=== PATIENT | female | born 1965 | race Caucasian/White ===

== ENCOUNTER 2020-08-27 11:58 | Outpatient (REF) | payer OTHER, SELFPAY ==
[2020-08-27 12:05] LABS: Glucose Urine UA NEG (NEG); Leukocyte Esterase Urine 1+ (NEG); Nitrite Urine NEG (NEG); Specific Gravity - Urine 1.015 (1.005-1.025); Urine Blood NEG (NEG); Urine Ketones NEG (NEG); Urine Protein NEG (NEG-TRACE)
[2020-08-27 12:09] LABS: Appearance Urine CLEAR; Color Urine YELLOW
[2020-08-27 12:40] LABS: Bacteria Urine 1+ /LPF; Mucus Urine TRACE /LPF; RBC Urine 0-2 /HPF (0); Squamous Epithelial Cell Urine 3+ /LPF
== END 2020-08-27 11:59 | disposition home or self-care (01) ==
LOC: HO.LNP 11:58
PROVIDERS: Visit Provider Physician Assistant
DX: N30.01 Acute cystitis with hematuria (principal)
CPT/HCPCS: 81001; 87086

== ENCOUNTER 2021-05-27 10:29 | Outpatient (REF) | payer OTHER, SELFPAY ==
[2021-05-27 11:36] LABS: Hematocrit 46.3 % (37-47); Hemoglobin 14.7 g/dl (12.0-16.0); Mean Corpuscular HGB Conc 31.7 g/dl (31.0-35.0); Mean Corpuscular Hemoglobin 30.1 pg (27.0-33.0); Mean Corpuscular Volume 94.7 fL (80-98); Mean Platelet Volume 9.1 fL (9.4-12.3); Platelet Count 368 X10*3/uL (160-400); Red Blood Count 4.89 X10*6/uL (4.20-5.50); Red Cell Distribution Width 12.6 % (11.0-16.0); White Blood Count 9.7 X10*3/uL (4.8-10.8)
[2021-05-27 12:05] LABS: Alanine Aminotransferase 15 U/L (0-31); Alkaline Phosphatase 79 U/L (39-117); Anion Gap 13 (12-20); Aspartate Amino Transferase 15 U/L (5-31); Bilirubin Total 0.6 mg/dL (0.0-1.0); Blood Urea Nitrogen 7 mg/dL (9-16); Calcium 9.6 mg/dL (8.4-10.2); Carbon Dioxide 30 mmol/L (22-29); Chloride 102 mmol/L (96-108); Cholesterol 252 mg/dL; Estimated Glomerular Filt Rate > 60; Glucose Fasting 103 mg/dL (60-99); HDL Cholesterol 32 mg/dL; LDL Cholesterol Calculated 184 mg/dl; Potassium 4.2 mmol/L (3.3-5.1); Sodium 141 mmol/L (135-145); Total Protein 6.6 g/dL (6.5-8.0); Triglycerides 184 mg/dL
[2021-05-27 12:08] LABS: TSH reflex Free T4 0.73 uIU/mL (0.32-4.0)
== END 2021-05-27 10:30 | disposition home or self-care (01) ==
LOC: HO.HMGCLDS 10:29
PROVIDERS: PCP Internal Medicine; Visit Provider Internal Medicine
DX: Z00.00 Encounter for general adult medical examination without abnormal findings (principal); J44.9 Chronic obstructive pulmonary disease, unspecified
CPT/HCPCS: 36415; 80053; 80061; 84443; 85027

== ENCOUNTER 2021-09-16 12:00 | Outpatient (REF) | payer OTHER, SELFPAY ==
[2021-09-16 14:36] LABS: Alanine Aminotransferase 13 U/L (0-31); Alkaline Phosphatase 76 U/L (39-117); Anion Gap 10 (12-20); Aspartate Amino Transferase 12 U/L (5-31); Bilirubin Total 0.5 mg/dL (0.0-1.0); Blood Urea Nitrogen 7 mg/dL (9-16); Calcium 9.3 mg/dL (8.4-10.2); Carbon Dioxide 31 mmol/L (22-29); Chloride 103 mmol/L (96-108); Cholesterol 239 mg/dL; Estimated Glomerular Filt Rate > 60; Glucose Fasting 95 mg/dL (60-99); HDL Cholesterol 33 mg/dL; LDL Cholesterol Calculated 175 mg/dl; Potassium 4.2 mmol/L (3.3-5.1); Sodium 140 mmol/L (135-145); TSH reflex Free T4 1.04 uIU/mL (0.32-4.0); Total Protein 6.6 g/dL (6.5-8.0); Triglycerides 155 mg/dL
== END 2021-09-16 12:01 | disposition home or self-care (01) ==
LOC: HO.HMGCLDS 12:00
PROVIDERS: Visit Provider Internal Medicine
DX: Z00.00 Encounter for general adult medical examination without abnormal findings (principal); J44.9 Chronic obstructive pulmonary disease, unspecified
CPT/HCPCS: 36415; 80053; 80061; 84443

== ENCOUNTER 2022-09-20 07:52 | Outpatient (REF) | payer OTHER, SELFPAY ==
[2022-09-20 11:27] LABS: MANUAL DIFF FLAG NO
[2022-09-20 11:33] LABS: Basophils Absolute Auto 0.1 X10*3/uL (0.0-0.2); Basophils Percent Auto 0.8 % (0-2); Eosinophils Absolute Auto 0.3 X10*3/uL (0.0-0.4); Eosinophils Percent Auto 3.3 % (0-4); Hematocrit 46.9 % (37.0-47.0); Hemoglobin 14.9 g/dl (12.0-16.0); Imm Gran Abs Auto 0.03 X10*3/uL (0.00-0.03); Imm Gran Pct Auto 0.3 % (0.0-0.4); Lymphocytes Absolute Auto 2.6 X10*3/uL (1.2-4.9); Lymphocytes Percent Auto 29.4 % (20-40); Mean Corpuscular HGB Conc 31.8 g/dl (31.0-35.0); Mean Corpuscular Hemoglobin 29.9 pg (27.0-33.0); Mean Corpuscular Volume 94.2 fL (80.0-98.0); Mean Platelet Volume 9.2 fL (9.4-12.3); Monocytes Absolute Auto 0.7 X10*3/uL (0.1-1.2); Monocytes Percent Auto 7.8 % (2-11); Neutrophils Absolute Auto 5.3 x10*3/uL (2.0-8.3); Neutrophils Percent Auto 58.4 % (45-73); Platelet Count 347 X10*3/uL (160-400); Red Blood Count 4.98 X10*6/uL (4.20-5.50); Red Cell Distribution Width 12.5 % (11.0-16.0)
[2022-09-20 12:00] LABS: Alanine Aminotransferase 14 U/L (0-31); Alkaline Phosphatase 82 U/L (39-117); Anion Gap 16 (12-20); Aspartate Amino Transferase 14 U/L (5-31); Bilirubin Total 0.6 mg/dL (0.0-1.0); Blood Urea Nitrogen 8 mg/dL (9-16); Calcium 9.1 mg/dL (8.4-10.2); Carbon Dioxide 26 mmol/L (22-29); Chloride 105 mmol/L (96-108); Cholesterol 242 mg/dL; Estimated Glomerular Filt Rate > 60; Glucose Fasting 118 mg/dL (60-99); HDL Cholesterol 36 mg/dL; LDL Cholesterol Calculated 168 mg/dl; Potassium 4.2 mmol/L (3.3-5.1); Sodium 143 mmol/L (135-145); Total Protein 6.5 g/dL (6.5-8.0); Triglycerides 190 mg/dL
[2022-09-20 12:17] LABS: TSH reflex Free T4 1.23 uIU/mL (0.32-4.0)
== END 2022-09-20 07:53 | disposition home or self-care (01) ==
LOC: HO.HMGCLDS 07:52
PROVIDERS: PCP Internal Medicine; Visit Provider Internal Medicine
DX: Z00.00 Encounter for general adult medical examination without abnormal findings (principal); E78.5 Hyperlipidemia, unspecified; J44.9 Chronic obstructive pulmonary disease, unspecified; E66.9 Obesity, unspecified
CPT/HCPCS: 36415; 80053; 80061; 84443; 85025

== ENCOUNTER 2022-09-26 15:39 | Outpatient (REF) | payer OTHER, MEDICAID, SELFPAY ==
--- NOTE | ~2022-09-26 | MM_ITS ---
EXAMINATION: MM SCREENING DIGITAL BREAST TOMOSYNTHESIS, BILATERAL CLINICAL INFORMATION: Screening. Asymptomatic. Remote prior outside mammography over 15 years ago at unknown facility. No known family history breast cancer. The lifetime risk of breast cancer based on the Tyrer-Cuzick Model is 11%. COMPARISON: None (current study represents new baseline exam). TECHNIQUE: Digital breast tomosynthesis is performed in both the craniocaudal and mediolateral oblique views along with computer-aided detection (CAD). Synthesized 2D images are generated from the tomosynthesis. Additional bilateral MLO views are provided. FINDINGS: There are scattered areas of fibroglandular density (ACR BI-RADS breast composition Category b). Left breast shows no significant mass. Neither breast shows architectural abnormality or abnormal calcifications. The axilla and skin contours are unremarkable. Right CC view shows subtle smooth nodular asymmetry central breast 4.5 cm from nipple and posterior central breast 8 cm from nipple. No definite correlate on MLO views. As this represents new baseline, patient will be recalled for additional imaging to fully characterize. MM/MM tomosynthesis screening BI IMPRESSION: Right: -Subtle smooth nodular asymmetry mid and posterior breast on CC view. Left: -No mammographic evidence of malignancy. ASSESSMENT: BI-RADS 0: Incomplete - Need Additional Imaging Evaluation RECOMMENDATION: 1. Additional views of the right breast (spot CC, spot ML). 2. Targeted ultrasound if warranted after review of the additional views. 3. Radiology department staff will contact the patient for additional imaging. This patient's information was entered into a reminder system with a target due date for their next mammogram.
== END 2022-09-26 15:40 | disposition home or self-care (01) ==
LOC: HO.MAMMO 15:39
PROVIDERS: PCP Internal Medicine; Visit Provider Internal Medicine
DX: Z12.31 Encounter for screening mammogram for malignant neoplasm of breast (principal)
CPT/HCPCS: 77063; 77067

== ENCOUNTER 2022-10-17 14:34 | Outpatient (REF) | payer OTHER, MEDICAID, SELFPAY ==
--- NOTE | ~2022-10-17 | MM_ITS ---
EXAMINATION: MM DIAGNOSTIC DIGITAL BREAST TOMOSYNTHESIS, RIGHT US DIAGNOSTIC ULTRASOUND BREAST, RIGHT CLINICAL INFORMATION: Recall from new baseline screening for subtle nodular asymmetric densities right breast. COMPARISON: Mammography: 09/26/2022 TECHNIQUE: Digital breast tomosynthesis is performed. 2D images are generated from the tomosynthesis. The following views are obtained: Spot CC, standard ML. Ultrasound right breast is performed using grayscale imaging and color Doppler, interrogated from all 4 quadrants. FINDINGS: There are scattered areas of fibroglandular density (ACR BI-RADS breast composition Category b). Breast tissue composition borders on heterogeneously dense. There are scattered fibronodular densities. No architectural abnormality. Ultrasound right breast demonstrates scattered fibrocystic changes with multiple scattered small simple cysts under 1 cm. There is some scattered minor duct ectasia. No intraductal echogenicity or color flow. No solid mass or architectural abnormality. Results are discussed with the patient at time of visit. MM/MM tomosynthesis added views R IMPRESSION: Scattered fibrocystic changes. ASSESSMENT: BI-RADS 2: Benign RECOMMENDATION: Routine annual mammography screening. This patient's information was entered into a reminder system with a target due date for their next mammogram.
== END 2022-10-17 14:35 | disposition home or self-care (01) ==
LOC: HO.MAMMO 14:34
PROVIDERS: PCP Internal Medicine; Visit Provider Internal Medicine
DX: N64.89 Other specified disorders of breast (principal)
CPT/HCPCS: 76642; 77061; 77065

== ENCOUNTER 2022-10-28 14:46 | Outpatient (REF) | payer OTHER, SELFPAY ==
--- NOTE | ~2022-10-28 | CT_ITS ---
EXAMINATION: LUNG CANCER SCREENING CT CHEST WITHOUT CONTRAST CLINICAL INFORMATION: Current smoker with 31 pack year history COMPARISON: None TECHNIQUE: Multidetector volumetric CT imaging of the chest was obtained noncontrast using low dose screening CT technique. Axial thin section 0.625 mm reformations in soft tissue and lung windows were obtained. Sagittal and coronal reformations were obtained. Axial MIP images were also created and reviewed. This CT examination was performed using dose optimization techniques as appropriate, variously including the following: *Automated exposure control *Adjustment of mA and/or kV according to patient size (this includes techniques or standardized protocols for targeted exams where dose is matched to indication/reason for exam; i.e. extremities or head) *Use of iterative reconstruction technique TOTAL EXAM DLP: 62 mGy-cm. FINDINGS: PULMONARY NODULES: No suspicious pulmonary nodules. There is a 3 mm nodule in the left lower lobe. LUNGS / PLEURA: Mild emphysema. Diffuse mild bronchial thickening without bronchiectasis. No pleural effusion or pneumothorax. MEDIASTINUM / DIANA: Heart normal in size without pericardial effusion. Great vessels normal caliber. No lymphadenopathy. Coronary calcifications present. Imaged thyroid gland unremarkable. CHEST WALL / AXILLA: Unremarkable. UPPER ABDOMEN: Included portions grossly unremarkable allowing for limitations in technique. OSSEOUS STRUCTURES: No acute or suspicious osseous abnormalities. CT/CT lung screening IMPRESSION: * No evidence of pulmonary malignancy. * Mild emphysema. ASSESSMENT: Lung RADS category: 2. Benign appearance or behavior. Nodules with a very low likelihood of becoming a clinically active cancer due to size or lack of growth. Continue annual screening with low-dose CT in 12 months. Probability of malignancy less than 1%. INCIDENTAL FINDINGS (S CATEGORY): None. RECOMMENDATION: Follow up low dose CT chest in 1 year.
== END 2022-10-28 14:47 | disposition home or self-care (01) ==
LOC: HO.CT 14:46
PROVIDERS: Visit Provider Physician Assistant Medical
DX: Z12.2 Encounter for screening for malignant neoplasm of respiratory organs (principal); F17.210 Nicotine dependence, cigarettes, uncomplicated
CPT/HCPCS: 71271; G0296

== ENCOUNTER 2022-11-18 11:01 | Outpatient (REF) | payer OTHER, SELFPAY ==
[2022-11-18 14:20] LABS: Alanine Aminotransferase 14 U/L (0-31); Alkaline Phosphatase 78 U/L (39-117); Anion Gap 12 (12-20); Aspartate Amino Transferase 11 U/L (5-31); Bilirubin Total 0.6 mg/dL (0.0-1.0); Blood Urea Nitrogen 8 mg/dL (9-16); Carbon Dioxide 30 mmol/L (22-29); Chloride 104 mmol/L (96-108); Cholesterol 208 mg/dL; Estimated Glomerular Filt Rate > 60; Glucose Fasting 112 mg/dL (60-99); HDL Cholesterol 34 mg/dL; LDL Cholesterol Calculated 140 mg/dl; Sodium 142 mmol/L (135-145); Total Protein 6.5 g/dL (6.5-8.0); Triglycerides 171 mg/dL
[2022-11-18 14:23] LABS: Estimated Average Glucose 137 mg/dL; Hemoglobin A1c % 6.4 %
== END 2022-11-18 11:02 | disposition home or self-care (01) ==
LOC: HO.HMGCLDS 11:01
PROVIDERS: PCP Internal Medicine; Visit Provider Internal Medicine
DX: J44.9 Chronic obstructive pulmonary disease, unspecified (principal); E78.5 Hyperlipidemia, unspecified
CPT/HCPCS: 36415; 80053; 80061; 83036

== ENCOUNTER 2023-03-20 12:19 | Outpatient (AMB) | payer OTHER, MEDICAID, SELFPAY ==
[2023-03-20 12:40] VITALS: BP 134/70; PULSE 86; O2SAT 95; BMI 34.8
--- NOTE | 2023-03-20 12:40 | A.OFFPC_ITS ---
Vital Signs 03/20/23 12:40 Height 5 ft 7 in Weight 222 lb BMI 34.8 BP 134/70 Blood Pressure Location Lt brachial Position Sitting Pulse 86 Pulse Source Pulse Oximeter Pulse Oximetry (%) 95 Oxygen Delivery Method Room Air Intake Visit Reasons: 6 month f/u Intake Note: Pt is here today for 6 months follow up visit. Allergies Sulfa (Sulfonamide Antibiotics) Allergy (Verified 03/20/23 12:45) mild headache nicotine Adverse Reaction (Unknown, Verified 03/20/23 12:45) vomiting strawberry [STRAWBERRY] Adverse Reaction (Unknown, Verified 03/20/23 12:45) BLOODY STOOLS PER PATIENT SEASONAL ALLERGIES Allergy (Mild, Uncoded 03/20/23 12:45) DIFFICULTY BREATHING Medication List - Last Reconciled 03/20/23 by Brittanie Esteves MD albuterol sulfate 90 mcg/actuation 2 puffs inhalation QID PRN flu vac qs 2020(4 yr up)CD(PF) mL IM montelukast 10 mg PO BEDTIME nicotine 1 patch transdermal DAILY pravastatin 40 mg PO DAILY umeclidinium 62.5 mcg/actuation (Incruse Ellipta) 1 inh inhalation DAILY Tobacco use date assessed: 09/20/22 Dental Screening Dental Screen Date: 03/20/23 Did you have a dental visit in the last 12 months?: No Did you have a dental problem in the last 6 months where you did not have access to dental care?: Yes Was dental information given to patient?: Yes HPI 6 month f/u HPI Details Pt presents for f/u of COPD/ASTHMA stable on meds and hyperlipidemia stable on pravastatin. [facility], LAT[facility] Medical History Antiphospholipid antibody positive Anxiety COPD (chronic obstructive pulmonary disease) Depression Foot pain, bilateral Hyperlipidemia Nicotine dependence, cigarettes, uncomplicated Right shoulder tendinitis Sciatica Surgical History History of colonoscopy Family History Father Diabetes mellitus Heart problem Mother COPD (chronic obstructive pulmonary disease) Emphysema, unspecified Diabetes mellitus Social History Housing: House Patient Tobacco Use Status: Current everyday Tobacco user Cigarettes Per Day: 10 Years Smoked: (onset 17yo, 1ppd x 39yrs, now 1/2ppd, 35+pyh) e-Cigarette/Vaping Use: Never Used Current occupational status: unemployed Cognitive needs: No Hearing needs: No Vision needs: Yes Questionnaire Thrive Questionnaire Date Thrive assessed: 09/20/22 CHAPIN-7 AMB Questionnaire CHAPIN-7 Date CHAPIN - 7 assessed: 09/20/22 Source: Developed by Drs. Star Cartwright, Asiya Linares, Osmar Zhong and colleagues, with an educational nasim from [email or web address]. Review of Systems Const All systems reviewed & are unremarkable except as noted in HPI and below Reports no additional complaints Eyes Reports no additional complaints ENT Reports no additional complaints Card Reports no additional complaints Resp Reports no additional complaints GI Reports no additional complaints Reports no additional complaints Physical exam (Primary Care) Vital Signs: Last Vital Signs Pulse 86 03/20/23 12:40 BP 134/70 03/20/23 12:40 Pulse Ox 95 03/20/23 12:40 Oxygen Delivery Method Room Air 03/20/23 12:40 BMI result Body Mass Index 34.8 Tobacco/Smoking Status: Tobacco use Status Tobacco use date assessed 09/20/22 03/20/23 12:40 Patient Tobacco Use Status Current everyday Tobacco 03/20/23 12:40 e-Cigarette/Vaping Use Never Used 03/20/23 12:40 Thrive Assessment: Date of Thrive Assessment Date Thrive assessed 09/20/22 03/20/23 12:40 Const General: no acute distress HENMT Head: Yes normal to inspection Eyes General: appearance normal, both eyes and all related structures Neck Neck: Yes supple Resp Effort & Inspection: normal respiratory effort Auscultation: diminished lung sounds Cardio Rhythm: regular rhythm Heart sounds: S1 normal heart sound present and S2 normal heart sound present GI Inspection: Yes normal to inspection Palpation (GI): Soft to palpation Results AMB Hemoglobin A1c AMB Hemoglobin A1c 7.0 % Last Edit by EDUARDO Christopher on 03/20/23 13:3 9 Results Reviewed Results Reviewed: Laboratory Last Values Hgb A1c (Clinic) 7.0 % (4.0-6.0) H 03/20/23 13:39 Assessment and Plan Assessment & Plan (1) Nicotine dependence, cigarettes, uncomplicated: Comment: (current smoker, 1ppd) Code(s): F17.210 - Nicotine dependence, cigarettes, uncomplicated Plan: Tobacco quitting discussed with the patient (2) COPD (chronic obstructive pulmonary disease): Code(s): J44.9 - Chronic obstructive pulmonary disease, unspecified Plan: Continue Incruse (3) Hyperlipidemia: Code(s): E78.5 - Hyperlipidemia, unspecified Plan: Continue pravastatin low-cholesterol diet (4) Hyperglycemia: Code(s): R73.9 - Hyperglycemia, unspecified Plan: A1C 7.0, ADA DIET INCREASE EXERCISE WEIGHT LOSS DISCUSSED WITH THE PATIENT. SHE DECLINED TAKING MEDICATIONS. Patient follow-up in 4 months with a fasting labs before Orders: Orders AMB Hemoglobin A1c Today Z13.9 - Encounter for screening, unspecified Hemoglobin A1c 4 Months E11.9 - Type 2 diabetes mellitus without complications, E78.5 - Hyperlipidemia, unspecified Microalbumin, Random (w Creat) 4 Months E11.9 - Type 2 diabetes mellitus without complications, E78.5 - Hyperlipidemia, unspecified Lipid Panel 4 Months E11.9 - Type 2 diabetes mellitus without complications, E78.5 - Hyperlipidemia, unspecified Comprehensive [place]. Panel Fast 4 Months E11.9 - Type 2 diabetes mellitus without complications, E78.5 - Hyperlipidemia, unspecified Medications: New blood-glucose meter (OneTouch Ultra2 Meter) As directed 1 ea 0RF blood sugar diagnostic (OneTouch Ultra Test strips) 1 q am 100 ea 3RF Coding Level of Care Code Est Pt Level 4 (89029) Diagnoses Nicotine dependence, cigarettes, uncomplicated F17.210 COPD (chronic obstructive pulmonary disease) J44.9 Hyperlipidemia E78.5 Hyperglycemia R73.9
== END 2023-03-20 14:09 | disposition home or self-care (01) ==
PROVIDERS: Visit Provider Internal Medicine
DX: J44.9 Chronic obstructive pulmonary disease, unspecified (principal); F17.210 Nicotine dependence, cigarettes, uncomplicated; E78.5 Hyperlipidemia, unspecified; R73.9 Hyperglycemia, unspecified
CPT/HCPCS: 83036; 99214

== ENCOUNTER 2023-07-18 09:45 | Outpatient (REF) | payer OTHER, SELFPAY ==
[2023-07-18 13:17] LABS: MANUAL DIFF FLAG NO
[2023-07-18 13:30] LABS: Basophils Absolute Auto 0.1 X10*3/uL (0.0-0.2); Basophils Percent Auto 0.8 % (0-2); Eosinophils Absolute Auto 0.2 X10*3/uL (0.0-0.4); Eosinophils Percent Auto 3.1 % (0-4); Hematocrit 47.1 % (37.0-47.0); Hemoglobin 14.9 g/dl (12.0-16.0); Imm Gran Abs Auto 0.01 X10*3/uL (0.00-0.03); Imm Gran Pct Auto 0.1 % (0.0-0.4); Lymphocytes Absolute Auto 2.8 X10*3/uL (1.2-4.9); Lymphocytes Percent Auto 37.5 % (20-40); Mean Corpuscular HGB Conc 31.6 g/dl (31.0-35.0); Mean Corpuscular Volume 94.8 fL (80.0-98.0); Mean Platelet Volume 9.9 fL (9.4-12.3); Monocytes Absolute Auto 0.7 X10*3/uL (0.1-1.2); Monocytes Percent Auto 9.2 % (2-11); Neutrophils Absolute Auto 3.6 x10*3/uL (2.0-8.3); Neutrophils Percent Auto 49.3 % (45-73); Platelet Count 295 X10*3/uL (160-400); Red Blood Count 4.97 X10*6/uL (4.20-5.50); Red Cell Distribution Width 12.6 % (11.0-16.0); White Blood Count 7.4 X10*3/uL (4.8-10.8)
[2023-07-18 13:44] LABS: Estimated Average Glucose 123 mg/dL; Hemoglobin A1c % 5.9 % (<6.0)
[2023-07-18 14:28] LABS: Alanine Aminotransferase 12 U/L (0-31); Albumin Level 3.9 g/dL (3.5-5.0); Alkaline Phosphatase 68 U/L (39-117); Anion Gap 13 (12-20); Aspartate Amino Transferase 15 U/L (5-31); Bilirubin Total 0.5 mg/dL (0.0-1.0); Blood Urea Nitrogen 6 mg/dL (9-16); Calcium 9.1 mg/dL (8.4-10.2); Carbon Dioxide 27 mmol/L (22-29); Chloride 105 mmol/L (96-108); Cholesterol 171 mg/dL (<200); Estimated Glomerular Filt Rate > 60; Glucose Fasting 95 mg/dL (60-99); HDL Cholesterol 34 mg/dL (>40); LDL Cholesterol Calculated 109 mg/dL (<100); Potassium 4.3 mmol/L (3.3-5.1); Sodium 141 mmol/L (135-145); Total Protein 6.9 g/dL (6.5-8.0); Triglycerides 140 mg/dL (<150)
== END 2023-07-18 09:46 | disposition home or self-care (01) ==
LOC: HO.HMGCLDS 09:45
PROVIDERS: PCP Internal Medicine; Visit Provider Internal Medicine
DX: E78.5 Hyperlipidemia, unspecified (principal); E11.65 Type 2 diabetes mellitus with hyperglycemia
CPT/HCPCS: 36415; 80053; 80061; 83036; 85025

== ENCOUNTER 2023-07-19 07:30 | Outpatient (REF) | payer OTHER, SELFPAY ==
[2023-07-19 11:59] LABS: Creatinine Urine 74.66 mg/dL; Microalbumin Urine < 5.0 mg/L
== END 2023-07-19 07:31 | disposition home or self-care (01) ==
LOC: HO.HMGCLNP 07:30
PROVIDERS: PCP Internal Medicine; Visit Provider Internal Medicine
DX: E78.5 Hyperlipidemia, unspecified (principal); E11.9 Type 2 diabetes mellitus without complications
CPT/HCPCS: 82570

== ENCOUNTER 2023-07-20 13:23 | Outpatient (AMB) | payer OTHER, SELFPAY ==
[2023-07-20 13:43] VITALS: BP 130/64; PULSE 94; O2SAT 100; BMI 31.6
--- NOTE | 2023-07-20 13:43 | MHC.PC.OV ---
Vital Signs 07/20/23 13:43 Height 5 ft 7 in Weight 202 lb BMI 31.6 BP 130/64 Blood Pressure Location Lt brachial Position Sitting Pulse 94 Pulse Source Pulse Oximeter Pulse Oximetry (%) 100 Oxygen Delivery Method Room Air Intake Visit Reasons: 4 Month follow up Intake Note: Pt is here today for 4 months follow up visit on DM. Allergies Sulfa (Sulfonamide Antibiotics) Allergy (Verified 07/20/23 13:46) mild headache nicotine Adverse Reaction (Unknown, Verified 07/20/23 13:46) vomiting strawberry [STRAWBERRY] Adverse Reaction (Unknown, Verified 07/20/23 13:46) BLOODY STOOLS PER PATIENT SEASONAL ALLERGIES Allergy (Mild, Uncoded 07/20/23 13:46) DIFFICULTY BREATHING Medication List - Last Reconciled 07/20/23 by Brittanie Esteves MD albuterol sulfate 90 mcg/actuation 2 puffs inhalation QID PRN blood sugar diagnostic ([facility] Ultra Test strips) 1 q am blood-glucose meter ([employer]an[employer] Ultra2 Meter) As directed flu [facility] 2019(4 yr up)CD(PF) mL IM lancets ([facility] Delica Plus Lancet) test blood sugar once a day montelukast 10 mg PO BEDTIME nicotine 1 patch transdermal DAILY pravastatin 40 mg PO DAILY umeclidinium 62.5 mcg/actuation (Incruse Ellipta) 1 inh inhalation DAILY Tobacco use date assessed: 07/20/23 Dental Screening Dental Screen Date: 07/20/23 Did you have a dental visit in the last 12 months?: Yes Did you have a dental problem in the last 6 months where you did not have access to dental care?: No Was dental information given to patient?: Patient has dentist HPI 4 Month follow up HPI Details Patient presents for the follow-up of diet-controlled diabetes and hyperlipidemia. COPD is stable on Incruse and patient is cutting down on smoking [facility] Medical History Antiphospholipid antibody positive Nicotine dependence, cigarettes, uncomplicated Hyperlipidemia Foot pain, bilateral Depression Anxiety Right shoulder tendinitis Sciatica COPD (chronic obstructive pulmonary disease) Surgical History History of colonoscopy Family History Father Diabetes mellitus Heart problem Mother COPD (chronic obstructive pulmonary disease) Emphysema, unspecified Diabetes mellitus Social History Housing: House Patient Tobacco Use Status: Current everyday Tobacco user Cigarettes Per Day: 10 Years Smoked: (onset 17yo, 1ppd x 39yrs, now 1/2ppd, 35+pyh) e-Cigarette/Vaping Use: Never Used Current occupational status: unemployed Cognitive needs: No Hearing needs: No Vision needs: Yes Questionnaire Thrive Questionnaire Date Thrive assessed: 09/20/22 CHAPIN-7 AMB Questionnaire CHAPIN-7 Date CHAPIN - 7 assessed: 09/20/22 Source: Developed by Drs. Star Cartwright, Asiya Linares, Osmar Zhong and colleagues, with an educational nasim from [employer]. Review of Systems Const All systems reviewed & are unremarkable except as noted in HPI and below Reports no additional complaints Eyes Reports no additional complaints ENT Reports no additional complaints Card Reports no additional complaints Resp Reports no additional complaints GI Reports no additional complaints Reports no additional complaints Physical exam (Primary Care) Vital Signs: Last Vital Signs Pulse 94 07/20/23 13:43 BP 130/64 07/20/23 13:43 Pulse Ox 100 07/20/23 13:43 Oxygen Delivery Method Room Air 07/20/23 13:43 BMI result Body Mass Index 31.6 Tobacco/Smoking Status: Tobacco use Status Tobacco use date assessed 07/20/23 07/20/23 13:50 Patient Tobacco Use Status Current everyday Tobacco 07/20/23 13:50 e-Cigarette/Vaping Use Never Used 07/20/23 13:50 Thrive Assessment: Date of Thrive Assessment Date Thrive assessed 09/20/22 07/20/23 13:50 Const General: no acute distress HENMT Mouth: Normal oral and palatal mucosa present Neck Neck: Yes supple Resp Effort & Inspection: normal respiratory effort Auscultation: clear to auscultation bilaterally Cardio Rhythm: regular rhythm Heart sounds: S1 normal heart sound present and S2 normal heart sound present GI Inspection: Yes normal to inspection Palpation (GI): Soft to palpation Skin Other: 5 cm sebaceous cyst on mid back Assessment and Plan Assessment & Plan (1) DM type 2 (diabetes mellitus, type 2): Comment: diet controlled A1C down to 5.9 12/23 Code(s): E11.9 - Type 2 diabetes mellitus without complications Plan: A1c is down to 5.9, continue ADA diet regular exercise and weight loss follow-up in 6 months with a fasting labs before (2) Nicotine dependence, cigarettes, uncomplicated: Comment: (current smoker, 1ppd) Code(s): F17.210 - Nicotine dependence, cigarettes, uncomplicated Plan: Tobacco quitting discussed with the patient, follow-up with lung cancer screening program (3) COPD (chronic obstructive pulmonary disease): Code(s): J44.9 - Chronic obstructive pulmonary disease, unspecified Plan: Continue Incruse (4) Hyperlipidemia: Code(s): E78.5 - Hyperlipidemia, unspecified Plan: Continue statin Orders: Orders Comprehensive [place]. Panel Fast 6 Months E11.9 - Type 2 diabetes mellitus without complications, E78.5 - Hyperlipidemia, unspecified, J44.9 - Chronic obstructive pulmonary disease, unspecified Lipid Panel 6 Months E11.9 - Type 2 diabetes mellitus without complications, E78.5 - Hyperlipidemia, unspecified, J44.9 - Chronic obstructive pulmonary disease, unspecified Hemoglobin A1c 6 Months E11.9 - Type 2 diabetes mellitus without complications, E78.5 - Hyperlipidemia, unspecified, J44.9 - Chronic obstructive pulmonary disease, unspecified TSH reflex Free T4 6 Months E11.9 - Type 2 diabetes mellitus without complications, E78.5 - Hyperlipidemia, unspecified, J44.9 - Chronic obstructive pulmonary disease, unspecified Coding Level of Care Code Est Pt Level 4 (40433) Diagnoses DM type 2 (diabetes mellitus, type 2) E11.9 Nicotine dependence, cigarettes, uncomplicated F17.210 COPD (chronic obstructive pulmonary disease) J44.9 Hyperlipidemia E78.5
== END 2023-07-20 14:21 | disposition home or self-care (01) ==
PROVIDERS: PCP Internal Medicine; Visit Provider Internal Medicine
DX: E11.9 Type 2 diabetes mellitus without complications (principal); F17.210 Nicotine dependence, cigarettes, uncomplicated; J44.9 Chronic obstructive pulmonary disease, unspecified; E78.5 Hyperlipidemia, unspecified
CPT/HCPCS: 99214

== ENCOUNTER 2024-01-26 08:15 | Outpatient (RCR) | payer OTHER, SELFPAY ==
[2024-01-26 10:42] VITALS: BP 120/60; PULSE 76; TEMP 36.8
[2024-01-26 10:46] VITALS: BMI 29.8
--- NOTE | 2024-01-26 11:23 | PC.ADMIT ---
Patient is a 58 year old single female who stated she called doctors office d/t feeling depressed and crying all the time and they suggested she go to [facility] crisis. Patient self presented at [facility] crisis and was referred to [facility]. Patient having a difficult time coping with the loss of her dog in December 2023. She has been crying throughout the day and has increased her ETOH use to cope drinking 4 shots of Kahlua in decaffeinated coffee every other night. Her best friend of 47 years Preet stopped talking to her initially however is currently talking to her briefly but when she begins to cry he tells her he has to go. Patient currently presents with depressed mood with tearful affect at times. She is alert and oriented x4. Calm and cooperative. Thoughts are clear and logical. She denied SI, No HI. She was given a copy of her safety plan if needed. Medications reconciled with patient and patient's pharmacy. She reports she is taking her medications as prescribed. Patient reports she is thinking about getting another dog.
--- NOTE | 2024-01-26 23:45 | P.HPPSP_ITS ---
[facility] Date of Service: 01/26/24 Chief Complaint: depression,anxiety Sources of Information: patient interviewed, chart reviewed and crisis/core team assessment reviewed HPI Narrative: Patient is a 58 yo female with depressive symptoms, anxiety, limited psychiatric treatment history, nicotine dependence, COPD, HLD, DM2, who previously attended [facility] many years ago who is currently struggling with the grief due to loss of her dog in 11/2023. She reports having limited supports to rely on for emotional support and no therapist or provider. She reports caring for her dog who had been very sick for a while...I cry every time I think of her . She spent nearly the entire length of the discussion reminiscing about her dog and ruminating on the loss and loneliness. She describes at baseline as being dysthymic, generalized anxiety which are manageable but that the loss has caused an acute exacerbation in depressive symptoms, low mood, energy, motivation, excessive emotionality and tearfulness, impairment in functioning and self care with poor appetite and sleep. She was initially seen by [facility] for worsening grief and had endorsed having some fleeting suicidal thoughts over the past few week and was ultimately referred to [facility]. Today she endorses some transient feelings of helplessness, hopelessness and feeling empty, but denies having any thoughts of giving up on life and says she has not been having any further SI thoughts in the past week. Denies any thoughts of harming self or others. She reports a remote history of alcohol use, but says she has not had any in recent years. She denies any history of manic or psychotic symptoms. Past Psychiatric History: Remote [facility] admission Denies IPLOC or detox admissions Denies SA or SIB Therapist: none Psych provider: none PCP: Brittanie Esteves MD Remote trials of Zoloft, hydroxyzine No current psychotropic medications [facility] Medical History Antiphospholipid antibody positive Nicotine dependence, cigarettes, uncomplicated Hyperlipidemia Foot pain, bilateral Depression Anxiety Right shoulder tendinitis Sciatica COPD (chronic obstructive pulmonary disease) Surgical History History of colonoscopy Family History: Mother with depression Sister with bipolar disorder Social History: Lives alone Unmarried GED, previously employed Unemployed Substance History: Lifetime smoker/nicotine dependence Alcohol use - heavier use in the past, sporadic use over past years, recent uptick in drinking 1-2 mos since dog Denies illicit drug use Trauma History: Ruminates on childhood losses (pets) Diagnostics Vital Signs (24Hr): Vital Signs - 24 hr 01/26/24 10:42 Temperature 98.3 F Pulse Rate 76 Blood Pressure 120/60 BMI result Body Mass Index 29.8 Meds/Allergies Meds Home Medications ?Medication ?Instructions ?Recorded ?Confirmed ?Type aspirin 81 mg capsule 81 mg PO DAILY 01/26/24 03/01/24 History Allergies Allergies Allergy/AdvReac Type Severity Reaction Status Date / Time Sulfa (Sulfonamide Allergy mild Verified 03/01/24 10:38 Antibiotics) headache nicotine AdvReac Unknown vomiting Verified 03/01/24 10:38 strawberry [STRAWBERRY] AdvReac Unknown BLOODY Verified 03/01/24 10:38 STOOLS PER PATIENT SEASONAL ALLERGIES Allergy Mild DIFFICULTY Uncoded 03/01/24 10:38 BREATHING Mental Status Exam Mental Status Exam Narrative: Alert, oriented, in no acute distress. Calm, cooperative, engaged. No psychomotor agitation or neurovegetative retardation. Eye contact maintained. Mood depressed, affect sad, tearful. Speech normal. Thought process ruminative, coherent. Thought content related to bereavement, some transient helplessness and hopelessness, denies SI, intention or plan. Denies any aggressive ideation. No paranoia or delusional content elicited. No evidence of psychosis. Insight and judgment fair but adequate. Assessment & Plan Assessment & Plan (1) MDD (major depressive disorder), recurrent episode: Status: Acute Code(s): F33.9 - Major depressive disorder, recurrent, unspecified (2) CHAPIN (generalized anxiety disorder): Status: Acute Code(s): F41.1 - Generalized anxiety disorder Plan Admit to [facility] VS reviewed: abrefile, BP 120/60;?76 bpm Patient says she is not open to starting any medications at this time and is primarily looking for emotional support and company continue other regular medications? Routine lab work ordered EKG, routine for baseline QTc for medication considerations UDS as indicated MassPat reviewed Continue to monitor as per protocol Patient educated on: diagnosis and medication risk/benefits Informed Consent: understands Reason for continued partial hosp. stay Substantial Risk for: inability to function and med/psych decompensation Certification I certify that partial hospital treatment is medically necessary due to the symptoms and problems resulting from the patient's mental illness and the failure to treat the patient at the partial hospital level of care would likely result in the patient requiring inpatient psychiatric care which could not be prevented at a less intensive level of care. Time Spent With Patient Time: Total time managing care of this patient today _60___ minutes.
== END 2024-01-26 23:59 | disposition home or self-care (01) ==
LOC: HO.PHPA 08:15
PROVIDERS: Visit Provider Psychiatry & Neurology Psychiatry
DX: F32.A Depression, unspecified (principal); F41.9 Anxiety disorder, unspecified
CPT/HCPCS: 90791; 90853

== ENCOUNTER → 2024-01-26 08:15 | Outpatient (BNV) | payer OTHER, SELFPAY | PROVIDERS: Visit Provider Psychiatry & Neurology Psychiatry | DX: F33.9 Major depressive disorder, recurrent, unspecified (principal); F41.1 Generalized anxiety disorder | CPT/HCPCS: 90792 ==

== ENCOUNTER 2024-02-28 09:12 | Outpatient (REF) | payer OTHER, SELFPAY ==
[2024-02-28 13:17] LABS: Estimated Average Glucose 117 mg/dL; Hemoglobin A1C 151.7426 umol/L; Hemoglobin A1c % 5.7 % (<6.0)
[2024-02-28 13:50] LABS: Alanine Aminotransferase 13 U/L (0-31); Alkaline Phosphatase 68 U/L (39-117); Anion Gap 15 (12-20); Aspartate Amino Transferase 13 U/L (5-31); Bilirubin Total 0.5 mg/dL (0.0-1.0); Blood Urea Nitrogen 8 mg/dL (9-16); Calcium 9.4 mg/dL (8.4-10.2); Carbon Dioxide 26 mmol/L (22-29); Chloride 104 mmol/L (96-108); Cholesterol 166 mg/dL (<200); Estimated Glomerular Filt Rate > 60; Glucose Fasting 108 mg/dL (60-99); HDL Cholesterol 37 mg/dL (>40); LDL Cholesterol Calculated 106 mg/dL (<100); Potassium 3.9 mmol/L (3.3-5.1); Sodium 141 mmol/L (135-145); Total Protein 6.6 g/dL (6.5-8.0); Triglycerides 117 mg/dL (<150)
[2024-02-28 14:38] LABS: TSH reflex Free T4 0.77 uIU/mL (0.32-4.0)
== END 2024-02-28 09:13 | disposition home or self-care (01) ==
LOC: HO.HMGCLDS 09:12
PROVIDERS: PCP Internal Medicine; Visit Provider Internal Medicine
DX: E11.9 Type 2 diabetes mellitus without complications (principal); E78.5 Hyperlipidemia, unspecified; J44.9 Chronic obstructive pulmonary disease, unspecified
CPT/HCPCS: 36415; 80053; 80061; 83036; 84443

== ENCOUNTER 2024-03-01 10:37 | Outpatient (AMB) | payer OTHER, SELFPAY ==
[2024-03-01 10:38] VITALS: BP 120/78; PULSE 83; O2SAT 95; BMI 29.8
--- NOTE | 2024-03-01 10:38 | A.OFFPC_ITS ---
Vital Signs 03/01/24 10:38 Height 5 ft 7 in Weight 190 lb BMI 29.8 BP 120/78 Blood Pressure Location Lt brachial Position Sitting Pulse 83 Pulse Source Pulse Oximeter Pulse Oximetry (%) 95 Oxygen Delivery Method Room Air Intake Visit Reasons: Annual PE - see comments Intake Note: Pt is here today for PE. Allergies Sulfa (Sulfonamide Antibiotics) Allergy (Verified 03/01/24 10:38) mild headache nicotine Adverse Reaction (Unknown, Verified 03/01/24 10:38) vomiting strawberry [STRAWBERRY] Adverse Reaction (Unknown, Verified 03/01/24 10:38) BLOODY STOOLS PER PATIENT SEASONAL ALLERGIES Allergy (Mild, Uncoded 03/01/24 10:38) DIFFICULTY BREATHING Medication List - Last Reconciled 03/01/24 by Brittanie Esteves MD aspirin 81 mg PO DAILY blood sugar diagnostic ([employer] Ultra Test strips) 1 q am blood-glucose meter ([employer] Ultra2 Meter) As directed lancets ([employer] Delica Plus Lancet) test blood sugar once a day montelukast 10 mg PO BEDTIME pravastatin 40 mg PO DAILY umeclidinium 62.5 mcg/actuation (Incruse Ellipta) 1 inh inhalation DAILY Tobacco use date assessed: 03/01/24 Dental Screening Dental Screen Date: 03/01/24 Did you have a dental visit in the last 12 months?: Yes Did you have a dental problem in the last 6 months where you did not have access to dental care?: No Was dental information given to patient?: Patient has dentist HPI Annual PE - see comments HPI Details Pt presents for PE. [facility] Medical History Antiphospholipid antibody positive Nicotine dependence, cigarettes, uncomplicated Hyperlipidemia Foot pain, bilateral Depression Anxiety Right shoulder tendinitis Sciatica COPD (chronic obstructive pulmonary disease) Surgical History History of colonoscopy Family History Father Diabetes mellitus Heart problem Mother COPD (chronic obstructive pulmonary disease) Emphysema, unspecified Diabetes mellitus Social History Household Members: None Housing: House Patient Tobacco Use Status: Current everyday Tobacco user Tobacco use type: Cigarette Cigarette Packs Per Day: 1 Cigarettes Per Day: 10 Years Smoked: (onset 17yo, 1ppd x 39yrs, now 1/2ppd, 35+pyh) e-Cigarette/Vaping Use: Never Used service: No Current occupational status: unemployed Cognitive needs: No Hearing needs: No Vision needs: Yes Questionnaire PHQ-9 Over the last 2 weeks, how often have you been bothered by any of the following problems? 1. Little interest or pleasure in doing things: several days 2. Feeling down, depressed, or hopeless: several days 3. Trouble falling or staying asleep, or sleeping too much: more than half the days 4. Feeling tired or having little energy: more than half the days 5. Poor appetite or overeating: more than half the days 6. Feeling bad about yourself - or that you are a failure or have let yourself or your family down: several days 7. Trouble concentrating on things, such as reading the newspaper or watching television: more than half the days 8. Moving or speaking so slowly that other people could have noticed. Or the opposite - being so fidgety or restless that you have been moving around a lot more than usual: several days 9. Thoughts that you would be better off or of hurting yourself in some way: not at all Total score: 12 Depression Screening Interpretation: Positive (Patient f/u with therapist, refuses meds) Depression Screening Follow-up: Existing condition and In treatment Depression Screening Done: Yes Source: Developed by Drs. Star Cartwright, Asiya Linares, Osmar Zhong and colleagues, with an educational nasim from [employer]. Thrive Questionnaire Date Thrive assessed: 03/01/24 I am a: Patient What is your living situation today?: I have a place to live, but I am worried about losing it in the future Within the past 12 months, did the food you bought not last and you didn't have the money to get more?: Sometimes True Within the past 12 months, did you worry whether your food would run out before you got money to buy more?: Sometimes True Do you have trouble paying for medicines?: Yes Do you have trouble getting transportation to medical appointments?: No Do you have trouble paying your heating and electricity bill?: Yes Do you have trouble taking care of your child, family member or friend?: No Do you have trouble with day-to-day activities such as bathing, preparing meals, shopping, managing finances, etc.?: No Are you currently unemployed and looking for a job?: No Are you interested in more education?: No Please select the resources that you would like help with: Housing/Long-Term Currently or been in a relationship where the following occur: I choose not to answer THRIVE Score: 4 AUDIT C Alcohol Use Questionnaire (AUDIT-C) 1. How often do you have a drink containing alcohol?: 2-4 times a month 2. How many drinks containing alcohol do you have on a typical day when you are drinking?: 1 or 2 3. How often do you have six or more drinks on one occasion?: Never Total Score: 2 CHAPIN-7 AMB Questionnaire CHAPIN-7 Date CHAPIN - 7 assessed: 03/01/24 Feeling nervous, anxious, or on edge: 1 = Several days Not being able to stop or control worryin = More than half the days Worrying too much about different things: 2 = More than half the days Trouble relaxin = More than half the days Being so restless that it is hard to sit still: 1 = Several days Becoming easily annoyed or irritable: 1 = Several days Feeling afraid as if something awful might happen: 2 = More than half the days Total CHAPIN-7 score (0-4 normal; 5-9 mild; 10-14 moderate; 15-21 severe): 11 Source: Developed by Drs. Star Cartwright, Asiya Linares, Osmar Zhong and colleagues, with an educational nasim from [employer]. Review of Systems Const All systems reviewed & are unremarkable except as noted in HPI and below Eyes Reports no additional complaints ENT Reports no additional complaints Card Reports no additional complaints Resp Reports no additional complaints GI Reports no additional complaints Physical exam (Primary Care) Vital Signs: Last Vital Signs Pulse 83 03/01/24 10:38 BP 120/78 03/01/24 10:38 Pulse Ox 95 03/01/24 10:38 Oxygen Delivery Method Room Air 03/01/24 10:38 BMI result Body Mass Index 29.8 Tobacco/Smoking Status: Tobacco use Status Tobacco use date assessed 03/01/24 03/01/24 10:48 Patient Tobacco Use Status Current everyday Tobacco 03/01/24 10:39 Tobacco use type Cigarette 03/01/24 10:39 e-Cigarette/Vaping Use Never Used 03/01/24 10:39 PHQ-9: PHQ-9 Score PHQ-9: Total score 12 03/01/24 11:24 Depression Screening Interpretation: Positive (Patient f/u with therapist, refuses meds) Depression Screening Follow-up: Existing condition and In treatment Thrive Assessment: Date of Thrive Assessment Date Thrive assessed 03/01/24 03/01/24 10:48 Currently or been in a relationship where the following occur: I choose not to answer Const General: no acute distress HENMT Head: Yes normal to inspection Ears: hearing grossly normal bilaterally Face and sinus: Yes normal facial exam Eyes General: appearance normal, both eyes and all related structures Neck Neck: Yes no lymphadenopathy and Yes supple Resp Effort & Inspection: normal respiratory effort Auscultation: clear to auscultation bilaterally Cardio Rhythm: regular rhythm Heart sounds: S1 normal heart sound present and S2 normal heart sound present GI Inspection: Yes normal to inspection Palpation (GI): Soft to palpation Percussion: Yes normal to percussion Auscultation: normal bowel sounds Assessment and Plan Assessment & Plan (1) DM type 2 (diabetes mellitus, type 2): Comment: diet controlled A1C down to 5.9 08/05 Code(s): E11.9 - Type 2 diabetes mellitus without complications Plan: cont ADA diet, exercise, check A1C IN 6 MONTHS (2) COPD (chronic obstructive pulmonary disease): Code(s): J44.9 - Chronic obstructive pulmonary disease, unspecified Plan: cont inhalers, tobacco quitting discussed (3) Hyperlipidemia: Code(s): E78.5 - Hyperlipidemia, unspecified Plan: cont Pravastatin (4) Annual physical exam: Code(s): Z00.00 - Encounter for general adult medical examination without abnormal findings Plan: well balanced diet, regular exercise discussed, pt refuses mammogram, c Orders: Orders Complete Blood Count Auto Diff 6 Months E11.9 - Type 2 diabetes mellitus without complications, E78.5 - Hyperlipidemia, unspecified, J44.9 - Chronic obstructive pulmonary disease, unspecified Lipid Panel 6 Months E11.9 - Type 2 diabetes mellitus without complications, E78.5 - Hyperlipidemia, unspecified, J44.9 - Chronic obstructive pulmonary disease, unspecified Comprehensive [place]. Panel Fast 6 Months E11.9 - Type 2 diabetes mellitus without complications, E78.5 - Hyperlipidemia, unspecified, J44.9 - Chronic obstructive pulmonary disease, unspecified TSH reflex Free T4 6 Months E11.9 - Type 2 diabetes mellitus without complications, E78.5 - Hyperlipidemia, unspecified, J44.9 - Chronic obstructive pulmonary disease, unspecified MM screening mammo BI 03/01/24 Z12.31 - Encounter for screening mammogram for malignant neoplasm of breast Hemoglobin A1c 6 Months E11.9 - Type 2 diabetes mellitus without complications, E78.5 - Hyperlipidemia, unspecified, J44.9 - Chronic obstructive pulmonary disease, unspecified Microalbumin, Random (w Creat) 6 Months E11.9 - Type 2 diabetes mellitus without complications, E78.5 - Hyperlipidemia, unspecified, J44.9 - Chronic obstructive pulmonary disease, unspecified Medications: Refilled umeclidinium 62.5 mcg/actuation (Incruse Ellipta) 1 inh inhalation DAILY 90 ea 3RF pravastatin 40 mg PO DAILY 90 tabs 3RF Discontinued sertraline Discontinued Reason: Doctor's Order 25 mg PO DAILY 14 tabs 0RF as directed Coding Level of Care Code Est Pt Prev Care 40-64y(63011) Diagnoses DM type 2 (diabetes mellitus, type 2) E11.9 COPD (chronic obstructive pulmonary disease) J44.9 Hyperlipidemia E78.5 Annual physical exam Z00.00
== END 2024-03-01 11:33 | disposition home or self-care (01) ==
PROVIDERS: PCP Internal Medicine; Visit Provider Internal Medicine
DX: E11.9 Type 2 diabetes mellitus without complications (principal); J44.9 Chronic obstructive pulmonary disease, unspecified; E78.5 Hyperlipidemia, unspecified; Z00.00 Encounter for general adult medical examination without abnormal findings
CPT/HCPCS: 99396

== ENCOUNTER 2024-03-14 11:31 | Outpatient (REF) | payer OTHER, SELFPAY ==
--- NOTE | ~2024-03-14 | MM_ITS ---
EXAMINATION: MM SCREENING DIGITAL BREAST TOMOSYNTHESIS, BILATERAL CLINICAL INFORMATION: Screening. Asymptomatic. COMPARISON: Mammography: This study is compared with prior exams dating back to 2022. TECHNIQUE: Digital breast tomosynthesis is performed in both the craniocaudal and mediolateral oblique views along with computer-aided detection (CAD). Synthesized 2D images are generated from the tomosynthesis. FINDINGS: The breasts are heterogeneously dense, which may obscure small masses (ACR BI-RADS breast composition Category c). There are no significant masses, abnormal calcifications, or other abnormalities. MM/MM tomosynthesis screening BI IMPRESSION: No mammographic evidence of malignancy. ASSESSMENT: BI-RADS BI-RADS 1 - Negative RECOMMENDATION: Routine annual mammography screening. 1 year F/U This examination should not preclude the clinical evaluation of a suspicious palpable abnormality. This patient's information was entered into a reminder system with a target due date for their next mammogram. Electronically signed by: Tosha Lyons MD 04/12/2024 11:52 AM EDT
== END 2024-03-14 11:32 | disposition home or self-care (01) ==
LOC: HO.MAMMO 11:31
PROVIDERS: PCP Internal Medicine; Visit Provider Internal Medicine
DX: Z12.31 Encounter for screening mammogram for malignant neoplasm of breast (principal)
CPT/HCPCS: 77063; 77067

== ENCOUNTER → 2024-03-14 11:33 | Outpatient (BNV) | payer OTHER, SELFPAY | PROVIDERS: PCP Internal Medicine; Visit Provider Radiology Diagnostic Radiology | DX: Z12.31 Encounter for screening mammogram for malignant neoplasm of breast (principal) | CPT/HCPCS: 77063; 77067 ==

== ENCOUNTER 2024-06-10 15:22 | Outpatient (REF) | payer OTHER, SELFPAY | END 2024-06-10 15:23 | disposition home or self-care (01) | LOC: HO.CT 15:22 | PROVIDERS: PCP Internal Medicine; Visit Provider Physician Assistant Medical | DX: Z12.2 Encounter for screening for malignant neoplasm of respiratory organs (principal); F17.210 Nicotine dependence, cigarettes, uncomplicated | CPT/HCPCS: 71271 ==

== ENCOUNTER 2024-09-03 09:03 | Outpatient (REF) | payer OTHER, SELFPAY ==
[2024-09-03 09:57] LABS: MANUAL DIFF FLAG NO
[2024-09-03 10:15] LABS: Basophils Absolute Auto 0.1 X10*3/uL (0.0-0.2); Basophils Percent Auto 0.7 % (0-2); Eosinophils Absolute Auto 0.4 X10*3/uL (0.0-0.4); Eosinophils Percent Auto 3.7 % (0-4); Hematocrit 46.7 % (37.0-47.0); Hemoglobin 15.1 g/dl (12.0-16.0); Imm Gran Abs Auto 0.02 X10*3/uL (0.00-0.03); Imm Gran Pct Auto 0.2 % (0.0-0.4); Lymphocytes Absolute Auto 3.1 X10*3/uL (1.2-4.9); Lymphocytes Percent Auto 31.5 % (20-40); Mean Corpuscular HGB Conc 32.3 g/dl (31.0-35.0); Mean Corpuscular Hemoglobin 30.6 pg (27.0-33.0); Mean Corpuscular Volume 94.5 fL (80.0-98.0); Mean Platelet Volume 9.4 fL (9.4-12.3); Monocytes Absolute Auto 0.8 X10*3/uL (0.1-1.2); Monocytes Percent Auto 8.1 % (2-11); Neutrophils Absolute Auto 5.4 x10*3/uL (2.0-8.3); Neutrophils Percent Auto 55.8 % (45-73); Platelet Count 309 X10*3/uL (160-400); Red Blood Count 4.94 X10*6/uL (4.20-5.50); Red Cell Distribution Width 12.6 % (11.0-16.0); White Blood Count 9.7 X10*3/uL (4.8-10.8)
[2024-09-03 11:00] LABS: Estimated Average Glucose 128 mg/dL; Hemoglobin A1C 164.0749 umol/L; Hemoglobin A1c % 6.1 % (<6.0); Total Hemoglobin (HGBA1C) 3821.6627 umol/L
[2024-09-03 11:46] LABS: Alanine Aminotransferase 19 U/L (0-31); Albumin Level 3.9 g/dL (3.5-5.0); Alkaline Phosphatase 63 U/L (39-117); Anion Gap 12 (12-20); Aspartate Amino Transferase 19 U/L (5-31); Bilirubin Total 0.4 mg/dL (0.0-1.0); Blood Urea Nitrogen 10 mg/dL (9-16); Calcium 8.6 mg/dL (8.4-10.2); Carbon Dioxide 28 mmol/L (22-29); Chloride 106 mmol/L (96-108); Cholesterol 169 mg/dL (<200); Estimated Glomerular Filt Rate > 60; Glucose Fasting 101 mg/dL (60-99); HDL Cholesterol 34 mg/dL (>40); LDL Cholesterol Calculated 90 mg/dL (<100); Sodium 142 mmol/L (135-145); TSH reflex Free T4 0.69 uIU/mL (0.32-4.0); Total Protein 6.9 g/dL (6.5-8.0); Triglycerides 226 mg/dL (<150)
[2024-09-03 14:27] LABS: Creatinine Urine 172.47 mg/dL; Microalbum/Creatinine Ratio Ur 7.5 ug/mg cr (<30)
== END 2024-09-03 09:04 | disposition home or self-care (01) ==
LOC: HO.HMGCLDS 09:03
PROVIDERS: PCP Internal Medicine; Visit Provider Internal Medicine
DX: E11.9 Type 2 diabetes mellitus without complications (principal); J44.9 Chronic obstructive pulmonary disease, unspecified; E78.5 Hyperlipidemia, unspecified
CPT/HCPCS: 36415; 80053; 80061; 82043; 82570; 83036; 84443; 85025

== ENCOUNTER 2024-09-04 13:26 | Outpatient (AMB) | payer MEDICARE, SELFPAY ==
--- NOTE | 2024-09-04 13:40 | MHC.PC.OV ---
Vital Signs 09/04/24 13:44 Height 5 ft 7 in Weight 209 lb BMI 32.7 BP 122/66 Blood Pressure Location Lt brachial Position Sitting Pulse 87 Pulse Source Pulse Oximeter Pulse Oximetry (%) 96 Oxygen Delivery Method Room Air Intake Visit Reasons: Follow up Intake Note: Pt is here today for a follow up visit on labs. Allergies Sulfa (Sulfonamide Antibiotics) Allergy (Verified 09/04/24 13:41) mild headache nicotine Adverse Reaction (Unknown, Verified 09/04/24 13:41) vomiting strawberry [STRAWBERRY] Adverse Reaction (Unknown, Verified 09/04/24 13:41) BLOODY STOOLS PER PATIENT SEASONAL ALLERGIES Allergy (Mild, Uncoded 09/04/24 13:41) DIFFICULTY BREATHING Medication List - Last Reconciled 09/04/24 by Brittanie Esteves MD albuterol sulfate 90 mcg/actuation 2 puffs inhalation QID PRN aspirin 81 mg PO DAILY blood sugar diagnostic ([employer]uch Ultra Test strips) 1 q am blood-glucose meter ([employer]uch Ultra2 Meter) As directed lancets ([employer] Delica Plus Lancet) test blood sugar once a day montelukast 10 mg PO BEDTIME pravastatin 40 mg PO DAILY umeclidinium 62.5 mcg/actuation (Incruse Ellipta) 1 inh inhalation DAILY Tobacco use date assessed: 09/04/24 Dental Screening Dental Screen Date: 09/04/24 Did you have a dental visit in the last 12 months?: Yes Did you have a dental problem in the last 6 months where you did not have access to dental care?: No Was dental information given to patient?: Patient has dentist HPI Follow up HPI Details Patient presents for the follow-up of hyperlipidemia hyperglycemia COPD/asthma stable on current medications. [facility] Medical History Antiphospholipid antibody positive Nicotine dependence, cigarettes, uncomplicated Hyperlipidemia Foot pain, bilateral Depression Anxiety Right shoulder tendinitis Sciatica COPD (chronic obstructive pulmonary disease) Surgical History History of colonoscopy Family History Father Diabetes mellitus Heart problem Mother COPD (chronic obstructive pulmonary disease) Emphysema, unspecified Diabetes mellitus Social History Household Members: None Housing: House Patient Tobacco Use Status: Current everyday Tobacco user Tobacco use type: Cigarette Cigarette Packs Per Day: 1 Cigarettes Per Day: 10 Years Smoked: (onset 17yo, 1ppd x 39yrs, now 1/2ppd, 35+pyh) e-Cigarette/Vaping Use: Never Used service: No Current occupational status: unemployed Cognitive needs: No Hearing needs: No Vision needs: Yes Questionnaire PHQ-9 Over the last 2 weeks, how often have you been bothered by any of the following problems? 1. Little interest or pleasure in doing things: more than half the days 2. Feeling down, depressed, or hopeless: several days 3. Trouble falling or staying asleep, or sleeping too much: more than half the days 4. Feeling tired or having little energy: more than half the days 5. Poor appetite or overeating: more than half the days 6. Feeling bad about yourself - or that you are a failure or have let yourself or your family down: several days 7. Trouble concentrating on things, such as reading the newspaper or watching television: several days 8. Moving or speaking so slowly that other people could have noticed. Or the opposite - being so fidgety or restless that you have been moving around a lot more than usual: not at all 9. Thoughts that you would be better off or of hurting yourself in some way: not at all Total score: 11 Depression Screening Interpretation: Positive (Patient is established with a counselor and declined medications) Depression Screening Follow-up: Existing condition Depression Screening Done: Yes 21833 - PHQ-9 Billing: Yes Source: Developed by Drs. Star Cartwright, Asiya Linares, Osmar Zhong and colleagues, with an educational nasim from [employer]. Thrive Questionnaire Date Thrive assessed: 09/04/24 I am a: Patient What is your living situation today?: I have a place to live, but I am worried about losing it in the future Within the past 12 months, did the food you bought not last and you didn't have the money to get more?: Sometimes True Within the past 12 months, did you worry whether your food would run out before you got money to buy more?: Sometimes True Do you have trouble paying for medicines?: Yes Do you have trouble getting transportation to medical appointments?: No Do you have trouble paying your heating and electricity bill?: I choose not to answer this question Do you have trouble taking care of your child, family member or friend?: I choose not to answer this question Do you have trouble with day-to-day activities such as bathing, preparing meals, shopping, managing finances, etc.?: No Are you currently unemployed and looking for a job?: I choose not to answer this question Are you interested in more education?: I choose not to answer this question Please select the resources that you would like help with: None Currently or been in a relationship where the following occur: I choose not to answer THRIVE Score: 3 AUDIT C Alcohol Use Questionnaire (AUDIT-C) 1. How often do you have a drink containing alcohol?: Monthly or less 2. How many drinks containing alcohol do you have on a typical day when you are drinking?: 1 or 2 3. How often do you have six or more drinks on one occasion?: Never Total Score: 1 CHAPIN-7 AMB Questionnaire CHAPIN-7 Date CHAPIN - 7 assessed: 09/04/24 Feeling nervous, anxious, or on edge: 1 = Several days Not being able to stop or control worryin = Several days Worrying too much about different things: 1 = Several days Trouble relaxin = Several days Being so restless that it is hard to sit still: 0 = Not at all Becoming easily annoyed or irritable: 1 = Several days Feeling afraid as if something awful might happen: 1 = Several days Total CHAPIN-7 score (0-4 normal; 5-9 mild; 10-14 moderate; 15-21 severe): 6 Source: Developed by Drs. Star Cartwright, Asiya Linares, Osmar Zhong and colleagues, with an educational nasim from [employer]. CHAPIN-7 Assessment Billing CHAPIN-7 Assessment Tool: CHAPIN-7 Assessment 25721 Review of Systems Const All systems reviewed & are unremarkable except as noted in HPI and below Eyes Reports no additional complaints ENT Reports no additional complaints Card Reports no additional complaints Resp Reports no additional complaints GI Reports no additional complaints Reports no additional complaints Physical exam (Primary Care) Vital Signs: Last Vital Signs Pulse 87 09/04/24 13:44 BP 122/66 09/04/24 13:44 Pulse Ox 96 09/04/24 13:44 Oxygen Delivery Method Room Air 09/04/24 13:44 BMI result Body Mass Index 32.7 Tobacco/Smoking Status: Tobacco use Status Tobacco use date assessed 09/04/24 09/04/24 13:42 Patient Tobacco Use Status Current everyday Tobacco 09/04/24 13:42 Tobacco use type Cigarette 09/04/24 13:42 e-Cigarette/Vaping Use Never Used 09/04/24 13:42 PHQ-9: PHQ-9 Score PHQ-9: Total score 11 09/04/24 13:51 Depression Screening Interpretation: Positive (Patient is established with a counselor and declined medications) Depression Screening Follow-up: Existing condition Thrive Assessment: Date of Thrive Assessment Date Thrive assessed 09/04/24 09/04/24 13:51 Currently or been in a relationship where the following occur: I choose not to answer Const General: no acute distress HENMT Head: Yes normal to inspection Face and sinus: Yes normal facial exam Eyes General: appearance normal, both eyes and all related structures Resp Effort & Inspection: normal respiratory effort Auscultation: clear to auscultation bilaterally Cardio Rhythm: regular rhythm Heart sounds: S1 normal heart sound present and S2 normal heart sound present GI Inspection: Yes normal to inspection Palpation (GI): Soft to palpation Percussion: Yes normal to percussion Auscultation: normal bowel sounds Coding Level of Care Code Est Pt Level 4 (83922) Diagnoses DM type 2 (diabetes mellitus, type 2) E11.9 COPD (chronic obstructive pulmonary disease) J44.9 Hyperlipidemia E78.5 Additional Codes CHAPIN-7 Assessment Billing - CHAPIN-7 Assessment Tool: CHAPIN-7 Assessment 79078 ([id number]) PHQ-9 - 90803 - PHQ-9 Billing: Yes ([id number]) Assessment & Plan Assessment & Plan (1) DM type 2 (diabetes mellitus, type 2): Comment: diet controlled A1C down to 5.9 08/05 Code(s): E11.9 - Type 2 diabetes mellitus without complications Category: Medical Plan: A1c is 6.1, ADA diet regular exercise weight loss discussed with the patient follow-up in 6 months with a fasting labs before (2) COPD (chronic obstructive pulmonary disease): Code(s): J44.9 - Chronic obstructive pulmonary disease, unspecified Category: Medical Plan: Continue Incruse and albuterol as needed tobacco quitting discussed with the patient (3) Hyperlipidemia: Code(s): E78.5 - Hyperlipidemia, unspecified Category: Medical Plan: Continue statin Orders: Orders Comprehensive [place]. Panel Fast 6 Months E11.9 - Type 2 diabetes mellitus without complications, E78.5 - Hyperlipidemia, unspecified, J44.9 - Chronic obstructive pulmonary disease, unspecified Lipid Panel 6 Months E11.9 - Type 2 diabetes mellitus without complications, E78.5 - Hyperlipidemia, unspecified, J44.9 - Chronic obstructive pulmonary disease, unspecified Microalbumin, Random (w Creat) 6 Months E11.9 - Type 2 diabetes mellitus without complications, E78.5 - Hyperlipidemia, unspecified, J44.9 - Chronic obstructive pulmonary disease, unspecified Vitamin D 25-OH Total 6 Months E11.9 - Type 2 diabetes mellitus without complications, E78.5 - Hyperlipidemia, unspecified, J44.9 - Chronic obstructive pulmonary disease, unspecified Complete Blood Count Auto Diff 6 Months E11.9 - Type 2 diabetes mellitus without complications, E78.5 - Hyperlipidemia, unspecified, J44.9 - Chronic obstructive pulmonary disease, unspecified Hemoglobin A1c 6 Months E11.9 - Type 2 diabetes mellitus without complications, E78.5 - Hyperlipidemia, unspecified, J44.9 - Chronic obstructive pulmonary disease, unspecified
[2024-09-04 13:44] VITALS: BP 122/66; PULSE 87; O2SAT 96; BMI 32.7
== END 2024-09-04 15:00 | disposition home or self-care (01) ==
PROVIDERS: PCP Internal Medicine; Visit Provider Internal Medicine
DX: E11.9 Type 2 diabetes mellitus without complications (principal); J44.9 Chronic obstructive pulmonary disease, unspecified; E78.5 Hyperlipidemia, unspecified

== ENCOUNTER → 2024-09-04 13:26 | Outpatient (BNVA) | payer OTHER, SELFPAY | PROVIDERS: PCP Internal Medicine; Visit Provider Internal Medicine | DX: E11.9 Type 2 diabetes mellitus without complications (principal); J44.9 Chronic obstructive pulmonary disease, unspecified; E78.5 Hyperlipidemia, unspecified; Z79.899 Other long term (current) drug therapy | CPT/HCPCS: 96127; 99212 ==

== ENCOUNTER 2025-02-11 16:21 | Inpatient (IN) | payer MEDICARE, SELFPAY ==
[2025-02-11] VITALS (7 sets, daily range): BP systolic 117–160; BP diastolic 48–71; PULSE 87–96; RESP 15–22; TEMP 36–36.8; O2SAT 88–96; BMI 31.5
--- NOTE | 2025-02-11 | ECG_ITS ---
Test Reason : SOB Blood Pressure : */* mmHG Vent. Rate : 93 BPM Atrial Rate : 93 BPM P-R Int : 162 ms QRS Dur : 132 ms QT Int : 412 ms P-R-T Axes : 70 62 102 degrees QTcB Int : 512 ms Sinus rhythm with frequent Premature ventricular complexes Possible Left atrial enlargement Non-specific intra-ventricular conduction block Nonspecific T wave abnormality Abnormal ECG When compared to the previous EKG of Premature ventricular complexes are now Present Referred By: Jes Justice Electronically Signed By: SEMEA KLINE MD
--- NOTE | ~2025-02-11 | XR_ITS ---
CLINICAL HISTORY: SOB Single view of the chest. COMPARISON: XR chest dated 02/11/25 at 16:55 EDT FINDINGS: Normal heart and mediastinal contours. Hazy airspace opacities within the mid to lower lungs, developed since prior imaging. Mild bronchial wall thickening. Blunting of the bilateral costophrenic angles, new since prior imaging. No pneumothorax. No acute fracture. IMPRESSION: 1. Small bilateral pleural effusions, new since prior imaging. 2. Hazy bibasilar pulmonary opacities may represent atelectasis versus multifocal pneumonia. This has developed since prior imaging. 3. Bronchial wall thickening. This document has been electronically signed by: Patrick Moore MD on 02/14/2025 13:22:01
--- NOTE | ~2025-02-11 | CT_ITS ---
EXAMINATION: CT CHEST WITHOUT IV CONTRAST INDICATION: Worsening Sob COMPARISON: Comparison is made with the prior examination dated 06/12/2024. TECHNIQUE: Helical CT scan of the chest was performed without intravenous contrast. Coronal and sagittal reformatted images were generated and reviewed. This CT exam was performed with one or more of the following dose reduction techniques: automated exposure control, adjustment of the mA and/or kV according to patient size, use of iterative reconstruction technique. DLP: 328 mGy-cm CHEST: THYROID: The thyroid is unremarkable. LUNGS: There are mild emphysematous changes. There is subsegmental atelectasis in the right middle lobe, lingula, and both lower lobes. There is a 7 x 4 mm nodule in the right middle lobe (series 4, image 81) which appears more prominent than on the prior study. There is a 6 x 3 mm nodule in the left upper lobe (series 4, image 48) which appears new from the prior study. MEDIASTINUM: There is no mediastinal lymphadenopathy. DIANA: Evaluation of the hilar regions is limited by lack of intravenous contrast material. CARDIOVASCULATURE: The heart is normal in size. There is no pericardial effusion. The thoracic aorta is normal in caliber. DEGREE OF CORONARY CALCIFICATION: mild PLEURA: There is a trace right pleural effusion. There is no left pleural effusion. No pneumothorax. MAIN AIRWAYS: The mainstem bronchi and proximal branches are patent. AXILLA: There is no axillary lymphadenopathy. BONES AND SOFT TISSUES: Unremarkable UPPER ABDOMEN: The visualized portions of the liver, spleen, and adrenals have an unremarkable unenhanced appearance. There is cholelithiasis. CT/CT chest wo IV con IMPRESSION: 1. Mild emphysema. 2. Subsegmental atelectasis in the right middle lobe, lingula, and both lower lobes. Small right pleural effusion. 3. Right middle lobe and left upper lobe pulmonary nodules as described. Follow-up is recommended with chest CT in 3 months. The patient may be scheduled for a routine low-dose screening chest CT at that time. Electronically signed by: Star Dillard MD 02/17/2025 07:33 AM EDT
--- NOTE | ~2025-02-11 | XR_ITS ---
CLINICAL HISTORY: sob Single view of the chest. COMPARISON: None provided. FINDINGS: Normal heart and mediastinal contours. No consolidation. No pleural effusion or pneumothorax. No acute fracture. IMPRESSION: 1. No consolidation. This document has been electronically signed by: Patrick Moore MD on 02/11/2025 17:25:49
[2025-02-11] MEDS: Albuterol Sulfate 5 MG, Albuterol/Iprat 2.5/0.5MG 3 ML 3 ML INHALE (16:36)
--- NOTE | 2025-02-11 16:52 | ECG_ITS ---
Test Reason : ELEVATED TROPONIN Blood Pressure : */* mmHG Vent. Rate : 86 BPM Atrial Rate : 86 BPM P-R Int : 178 ms QRS Dur : 136 ms QT Int : 446 ms P-R-T Axes : 71 58 96 degrees QTcB Int : 533 ms Sinus rhythm with occasional Premature ventricular complexes Possible Left atrial enlargement Left ventricular hypertrophy with QRS widening and repolarization abnormality ( [place] product ) Cannot rule out Septal infarct , age undetermined Abnormal ECG When compared with ECG of 09-Jul-2019 14:28, No significant changes seen T wave inversion no longer evident in Inferior leads QT has lengthened Referred By: Jes Justice Electronically Signed By: SEEMA KLINE MD
[2025-02-11 17:31] LABS: MANUAL DIFF FLAG NO
--- NOTE | 2025-02-11 17:32 | ED_ITS ---
HPI - SOB/Dyspnea General Chief Complaint: Respiratory Arrest Stated Complaint: diff breathing Time Seen by Provider: 02/11/25 16:40 Source: patient and EMS Mode of arrival: EMS Limitations: no limitations History of Present Illness ED Provider: HPI Narrative: Patient is 59 years old with history of COPD coronary artery disease type 2 diabetes on diet control usually stable from COPD point of view got increased shortness a breath for last few days got worse prior to arrival patient has been coughing with mucopurulent phlegm at fever and chills off and on comes here for significant hypoxia saturating 91% on 5 L. patient has received steroids and DuoNeb treatment by the EMS patient's feel tight in the chest no history of any blood clots Related Data Home Medications ?Medication ?Instructions ?Recorded ?Confirmed aspirin 81 mg tablet,delayed 81 mg PO DAILY 02/11/25 0 02/11/25 release loratadine 10 mg tablet (Claritin) 10 mg PO DAILY 09/0702/11/25 Previous Rx's ?Medication ?Instructions ?Recorded blood-glucose meter ([employer] #1 ea 03/23/23 Ultra2 Meter) umeclidinium 62.5 mcg/actuation 1 inh inhalation DAILY #90 ea 03/01/24 blister powder for inhalation (Incruse Ellipta) blood sugar diagnostic (20/[employer]uch #100 ea 03/19/24 Ultra Test strips) albuterol sulfate 90 mcg/actuation 2 puff inhalation Q ID PRN 11/12/24 aerosol inhaler shortness of breath or wheez ing #8.5 grams montelukast 10 mg tablet 10 mg PO BEDTIME #90 tabs lancets 30 gauge ([employer] Delica #100 ea 01/28/25 Plus Lancet) Allergies Allergy/AdvReac Type Severity Reaction Status Date / Time Sulfa (Sulfonamide Allergy mild Verified 02/11/25 16:47 Antibiotics) headache nicotine AdvReac Unknown vomiting Verified 02/11/25 16:47 strawberry (STRAWBERRY) AdvReac Unknown BLOODY Verified 02/11/25 16:47 STOOLS PER PATIENT SEASONAL ALLERGIES Allergy Mild DIFFICULTY Uncoded 02/11/25 16:47 BREATHING Review of Systems 2 Review of Systems: Yes all other systems are reviewed and are negative PMFSH Past Medical History Medical History Antiphospholipid antibody positive Nicotine dependence, cigarettes, uncomplicated Hyperlipidemia Foot pain, bilateral Depression Anxiety Right shoulder tendinitis Sciatica COPD (chronic obstructive pulmonary disease) Surgical History History of colonoscopy Family History Family History Father Diabetes mellitus Heart problem Mother COPD (chronic obstructive pulmonary disease) Emphysema, unspecified Diabetes mellitus Social History Social History Household Members: None Housing: House Patient Tobacco Use Status: Former Tobacco user Tobacco use type: Cigarette Cigarette Packs Per Day: 1 Cigarettes Per Day: 10 Years Smoked: (onset 17yo, 1ppd x 39yrs, now 1/2ppd, 35+pyh) e-Cigarette/Vaping Use: Never Used Advance Directives: No Advance Directives Information Provided: No Do you have a plan to hurt others: No Plan Nutrition Risks: No Nutritional Risk service: No Current occupational status: unemployed Cognitive needs: No Hearing needs: No Vision needs: Yes Physical Exam 2 Vital Signs: Vital Signs: Last Vital Signs Temp 97.0 F 02/11/25 23:32 Pulse 87 02/11/25 23:32 Resp 18 02/11/25 23:32 BP 117/57 L 02/11/25 23:32 Pulse Ox 94 02/11/25 23:32 O2 Del Method Oxymask 02/11/25 23:32 O2 Flow Rate 2 02/11/25 23:32 Oxygen Flow Rate 5 02/11/25 16:33 BMI result Body Mass Index 31.5 Appearance: Alert. Oriented X3. In moderate respiratory distress Eyes: No pallor or icterus ENT: Pharynx normal. Oral Mucosa moist Neck: Normal inspection. Neck supple. CVS: Normal heart rate and rhythm. Pulses normal. Respiratory: Moderate respiratory distress. Equal air entry bilateral, bilateral wheezing occasional crackles Abdomen: Soft and nontender. Bowel sounds are present, no mass palpable, no CVA tenderness Skin: Skin warm and dry. Normal skin color. Normal skin turgor. Extremities: No lower extremity edema. No calf tenderness Neuro: Oriented X 3. No motor deficit. Medications Administered Generic Name Dose Route Start Last Admin Trade Name Freq PRN Reason Stop Dose Admin Enoxaparin Sodium 40 mg 02/11/25 21:30 02/11/25 22:37 Enoxaparin Sodium 40 Mg/0.4 Ml Syringe SUBCUT 40 mg Q24H BILL Administration Doxycycline Hyclate 100 mg/ 250 mls @ 166.67 mls/hr 02/11/25 22:00 02/12/25 00:30 Sodium Chloride IV Infused Q12H BILL Infusion Methylprednisolone Sodium Succinate 60 mg 02/11/25 22:00 02/11/25 22:38 Methylprednisolone Sod Succ 125 Mg/2 Ml Vial IVPUSH 60 mg Q12H BILL Administration Sodium Chloride 3 ml 02/12/25 00:00 02/12/25 00:10 0.9 % Sodium Chloride Flush 3 Ml Syringe IVFLUSH Not Given QSHIFT BILL Discontinued Medications Generic Name Dose Route Start Last Admin Trade Name Freq PRN Reason Stop Dose Admin Ceftriaxone Sodium 1 gm 02/11/25 18:11 02/11/25 18:32 Ceftriaxone Sodium 1 Gm Vial IVPUSH 02/11/25 18:12 1 gm ONCE ONE Administration Albuterol Sulfate 5 mg/ 0 mg 02/11/25 16:31 02/11/25 16:36 Albuterol/Ipratropium 3 ml INHALE 02/11/25 16:32 1 each ONCE ONE Administration Magnesium Sulfate/Dextrose 1 gm in 100 mls @ 300 mls/hr 02/11/25 17:30 02/11/25 18:53 Magnesium Sulfate/D5w IV 02/11/25 17:49 Infused ONCE ONE Infusion Sodium Chloride 1,000 mls @ 999 mls/hr 02/11/25 18:11 02/11/25 20:32 Ns IV 02/11/25 19:11 Infused .Q1H1M ONE Infusion Medical Decision Making Medical Decision Making MDM Narrative: Patient with acute hypoxic respiratory failure second-degree to COPD exacerbation with bronchitis responded to nebulizer treatment steroids and antibiotics elevated lactic acid level from nebulizing treatment and hypoxia not severe sepsis. Patient is saturating 94% on 2 L now Differential Diagnosis Differential Diagnoses: The differential diagnosis associated with the presentation includes Pneumonia/bronchitis/COPD/pleural effusion/PE Admission/Observation Consideration of admission/observation: Escalation of care including admission/observation considered Consult Healthcare Provider Management of the patient was discussed with: Hospitalist Lab Data MDM Lab Attestation statement: I reviewed the patient's lab results. 02/11/25 17:22 02/11/25 17:22 Labs: Lab Results 02/11/25 02/11/25 02/11/25 Range/Units 17:22 17:48 19:48 WBC 9.3 (4.8-10.8) X10*3/uL RBC 4.98 (4.20-5.50) X10*6/uL Hgb 15.3 (12.0-16.0) g/dl Hct 46.5 (37.0-47.0) % MCV 93.4 (80.0-98.0) fL MCH 30.7 (27.0-33.0) pg MCHC 32.9 (31.0-35.0) g/dl RDW 13.2 (11.0-16.0) % Plt Count 213 D (160-400) X10*3/uL MPV 9.3 L (9.4-12.3) fL Immature Gran % (Auto) 0.3 (0.0-0.4) % Neut % (Auto) 68.1 (45-73) % Lymph % (Auto) 23.9 (20-40) % Dunn % (Auto) 7.1 (2-11) % Eos % (Auto) 0.2 (0-4) % Baso % (Auto) 0.4 (0-2) % Lymph # (Auto) 2.2 (1.2-4.9) X10*3/uL Dunn # (Auto) 0.7 (0.1-1.2) X10*3/uL Eos # (Auto) 0.0 (0.0-0.4) X10*3/uL Baso # (Auto) 0.0 (0.0-0.2) X10*3/uL Abs Immat Gran (auto) 0.03 (0.00-0.03) X10*3/uL Absolute Neuts (auto) 6.4 (2.0-8.3) x10*3/uL Absolute Nucleated RBC 0.000 (0.0-0.012) X10*3/uL Nucleated RBC % (auto) 0.0 (0.0-0.2) /100WBC VBG pH 7.38 (7.32-7.43) VBG pCO2 49 mmHg VBG pO2 34 mmHg VBG HCO3 29 H (22-26) mmol/L VBG O2 Saturation 52.0 % VBG Base Excess 3.4 mmol/L Sodium 140 (135-145) mmol/L Potassium 3.8 (3.3-5.1) mmol/L Chloride 101 (96-108) mmol/L Carbon Dioxide 26 (22-29) mmol/L Anion Gap 17 (12-20) BUN 17 H (9-16) mg/dL Creatinine 0.74 (0.5-1.4) mg/dL Estim Creat Clear Calc 93.7 Estimated GFR > 60 Random Glucose 157 H (60-115) mg/dL Lactic Acid 2.2 H* (0.5-2.0) mmol/L Lactic Acid F/U @ 2Hr 2.1 H* (0.5-2.0) mmol/L Calcium 8.6 (8.4-10.2) mg/dL Magnesium 2.3 (1.6-2.6) mg/dL Total Bilirubin 0.7 (0.0-1.0) mg/dL AST 33 H (5-31) U/L ALT 23 (0-31) U/L Alkaline Phosphatase 62 (39-117) U/L Troponin I High Sens 20.2 H (<3.5-17.0) ng/L B-Natriuretic Peptide 57 (<100) pg/mL Total Protein 7.0 (6.5-8.0) g/dL Albumin 4.3 (3.5-5.0) g/dL Influenza Type A (PCR) NEGATIVE (Negative) Influenza Type B (PCR) NEGATIVE (Negative) RSV RNA Qual (PCR) NEGATIVE (Negative) SARS-CoV-2 RNA (RT-PCR) NEGATIVE (Negative) Independent Interpretation I performed an independent interpretation of an: EKG and Plain X-Ray Interpretation: Sinus rhythm with ventricular rate of 86 beats per minute with PVCs and PACs no acute ST-T no acute ischemia Radiology Impression Discussion of test interpretation with radiology: I have reviewed the radiologist's reading. Radiologist Impression: No consolidation Critical Care Time Critical Care Time Critical Care Time: Yes Total Critical Care Time: 60 Attestation: Time is exclusive of separately billable procedures. Time includes: direct patient care, patient reassessment, coordination of patient care, interpretation of data (laboratory data, pulse oximetry, arterial blood gases and chest xrays), review of patient's medical records, medical consultation and documentation of patient care. Procedures excluded from critical care time: central intravenous line placement and electrocardiography. Discharge Plan Discharge Clinical Impression: Acute hypoxic respiratory failure, COPD exacerbation Patient Disposition: Admitted As Inpatient
[2025-02-11 17:37] LABS: Hematocrit 46.5 % (37.0-47.0); Hemoglobin 15.3 g/dl (12.0-16.0); Imm Gran Abs Auto 0.03 X10*3/uL (0.00-0.03); Imm Gran Pct Auto 0.3 % (0.0-0.4); Lymphocytes Absolute Auto 2.2 X10*3/uL (1.2-4.9); Mean Corpuscular HGB Conc 32.9 g/dl (31.0-35.0); Mean Corpuscular Hemoglobin 30.7 pg (27.0-33.0); Mean Corpuscular Volume 93.4 fL (80.0-98.0); NRBC Abs Auto 0.000 X10*3/uL (0.0-0.012); NRBC Pct Auto 0.0 /100WBC (0.0-0.2); Platelet Count 213 X10*3/uL (160-400); Red Blood Count 4.98 X10*6/uL (4.20-5.50); White Blood Count 9.3 X10*3/uL (4.8-10.8)
[2025-02-11 17:47] LABS: Alanine Aminotransferase 23 U/L (0-31); Albumin Level 4.3 g/dL (3.5-5.0); Alkaline Phosphatase 62 U/L (39-117); Anion Gap 17 (12-20); Aspartate Amino Transferase 33 U/L (5-31); Blood Urea Nitrogen 17 mg/dL (9-16); Calcium 8.6 mg/dL (8.4-10.2); Carbon Dioxide 26 mmol/L (22-29); Chloride 101 mmol/L (96-108); Creatinine Clr Calc Pharmacy 93.7; Estimated Glomerular Filt Rate > 60; Magnesium 2.3 mg/dL (1.6-2.6); Potassium 3.8 mmol/L (3.3-5.1); Sodium 140 mmol/L (135-145); Total Protein 7.0 g/dL (6.5-8.0)
[2025-02-11 17:51] LABS: B Type Natriuretic Peptide 57 pg/mL (<100); Troponin-I High Sensitivity 20.2 ng/L (<3.5-17.0)
--- NOTE | 2025-02-11 17:55 | PC.NURSE ---
59 F presents from home with SOB and COPD exacerbation x 2 days. Pt recieved a duoneb and solumedrol 125mg en route. Pt is calm, cooperative. Pt is still having some SOB but it has improved, on 5L NC. Pt denies any pain at this time. RR even an a little shallow. Pt denies CP. A+OX4
[2025-02-11 18:01] LABS: VBG HCO3 29 mmol/L (22-26); VBG O2 % Saturation 52.0 %
[2025-02-11 18:06] LABS: Venous Blood Gas Refer to POC result
[2025-02-11 18:13] LABS: Resp Syncy Virus RNA Qual PCR NEGATIVE (Negative); SARS COV2 PCR INHOUSE NEGATIVE (Negative)
--- NOTE | 2025-02-11 19:25 | PC.NURSE ---
assumed care of pt @1900, report received from Talon AMATO, no acute distress noted at this time
[2025-02-11 19:29] LABS: Reflex Lactate? Lactic Acid Added
[2025-02-11 20:16] LABS: ~Lactic Acid-LAB USE ONLY 2.1 mmol/L (0.5-2.0)
--- NOTE | 2025-02-11 21:24 | PM.IMHP ---
History of Present Illness Date of Service: 02/11/25 Attending physician on admission: Nas Brown Chief Complaint: Shortness of breath Patient is a 59-year-old female with a past medical history significant for moderate COPD, CAD, type 2 diabetes (no medications), former smoker, HLD, class 1 obesity, who presented to the ED due to shortness of breath for the past few days, worsening. She reports shortness of breath at rest but worse with exertion. No orthopnea. Her she has a productive cough with yellow sputum and has a subjective fever but has not measured a temperature at home. The patient has not had a fever while in the emergency department. She denies any sick contacts. She denies any chest pain, nausea or vomiting. No abdominal pain or urinary symptoms. She reports recently quitting smoking about 1 week ago. Review of Systems Constitutional: Constitutional: Denies body ache(s), Denies chills, Reports fatigue, Denies fever(s) and Denies headache(s) Eyes: Eyes: Denies change in vision and Denies loss of vision ENT: Denies headache(s), Denies nasal congestion, Denies nasal discharge and Denies sore throat Cardiovascular: Cardiovascular: Denies chest pain, Denies rapid heart rate, Denies leg edema, Denies lightheadedness and Reports dyspnea Respiratory: Respiratory: Reports cough, Reports dyspnea and Reports wheezing Gastrointestinal: Gastrointestinal: Denies abdominal pain, Denies diarrhea, Denies nausea and Denies vomiting Genitourinary: Genitourinary: Denies dysuria and Denies urinary urgency Musculoskeletal: Musculoskeletal: Denies back pain and Denies myalgias Integumentary/Breasts: Skin/Breast: Denies rash Neurologic: Denies confusion, Denies headache(s) and Denies loss of vision Psychiatric: Psychiatric: Denies confusion Endocrine: Endocrine: Reports fatigue Hematologic/Lymphatic: Hematologic/Lymphatic: Denies easy bleeding and Denies easy bruising Allergic/Immunologic: Allergic/Immunologic: Reports wheezing [facility] Medical History (Updated 02/11/25 @ 21:27 by Jes Justice PA-C) Antiphospholipid antibody positive Nicotine dependence, cigarettes, uncomplicated Hyperlipidemia Foot pain, bilateral Depression Anxiety Right shoulder tendinitis Sciatica COPD (chronic obstructive pulmonary disease) Functional capacity: independent ambulation Family History Father Diabetes mellitus Heart problem Mother COPD (chronic obstructive pulmonary disease) Emphysema, unspecified Diabetes mellitus Surgical History History of colonoscopy Social History Household Members: None Housing: House Patient Tobacco Use Status: Former Tobacco user Tobacco use type: Cigarette Cigarette Packs Per Day: 1 Cigarettes Per Day: 10 Years Smoked: (onset 17yo, 1ppd x 39yrs, now 1/2ppd, 35+pyh) e-Cigarette/Vaping Use: Never Used Advance Directives: No Advance Directives Information Provided: No Do you have a plan to hurt others: No Plan Nutrition Risks: No Nutritional Risk service: No Current occupational status: unemployed Cognitive needs: No Hearing needs: No Vision needs: Yes Narrative: Previous smoker, quit about 1 week ago. No alcohol or drug use Meds Allergies Allergy/AdvReac Type Severity Reaction Status Date / Time Sulfa (Sulfonamide Allergy mild Verified 02/11/25 16:47 Antibiotics) headache nicotine AdvReac Unknown vomiting Verified 02/11/25 16:47 strawberry (STRAWBERRY) AdvReac Unknown BLOODY Verified 02/11/25 16:47 STOOLS PER PATIENT SEASONAL ALLERGIES Allergy Mild DIFFICULTY Uncoded 02/11/25 16:47 BREATHING Active Medications: Current Medications Acetaminophen (Acetaminophen 325 Mg Tablet) 975 mg PO Q6H PRN PRN Reason: Pain, Mild 1-3,fever,headache Albuterol/Ipratropium (Albuterol/Iprat 2.5/0.5mg 3 Ml Ampul.Neb) 3 ml INHALE RQ4H WHILE AWAKE BILL Benzonatate (Benzonatate 100 Mg Capsule) 100 mg PO TID PRN PRN Reason: Cough Calcium Carbonate (Calcium Carbonate 750 Mg Tab.Chew) 750 mg PO Q4H PRN PRN Reason: Heartburn Enoxaparin Sodium (Enoxaparin Sodium 40 Mg/0.4 Ml Syringe) 40 mg SUBCUT Q24H BILL Doxycycline Hyclate 100 mg/ (Sodium Chloride) 250 mls @ 166.67 mls/hr IV Q12H BILL Magnesium Hydroxide (Milk Of Magnesia 30 Ml Oral.Susp) 30 ml PO DAILY PRN PRN Reason: Constipation Melatonin (Melatonin 3 Mg Tablet) 6 mg PO BEDTIME PRN PRN Reason: Insomnia Methylprednisolone Sodium Succinate (Methylprednisolone Sod Succ 125 Mg/2 Ml Vial) 60 mg IVPUSH Q12H BILL Oxycodone HCl (Oxycodone Hcl Immed Release 5 Mg Tablet) 5 mg PO Q6H PRN PRN Reason: Pain, Moderate(Pain Scale 4-6) Sodium Chloride (0.9 % Sodium Chloride Flush 3 Ml Syringe) 3 ml IVFLUSH QSHIFT [facility] Home Medications ?Medication ?Instructions ?Recorded ?Confirmed ?Last Taken ?Type aspirin 81 mg capsule 81 mg PO DAILY 01/26/24 09/04/24 01/25/24 20:00 History Physical Exam Vital Signs and Narrative: Vital Signs: Last Vital Signs Temp 98.2 F 02/11/25 19:08 Pulse 87 02/11/25 19:08 Resp 21 H 02/11/25 19:08 BP 123/52 L 02/11/25 21:10 Pulse Ox 93 02/11/25 19:08 O2 Del Method Oxymask 02/11/25 19:08 O2 Flow Rate 2 02/11/25 19:08 Oxygen Flow Rate 5 02/11/25 16:33 BMI result Body Mass Index 31.5 General: AOx3, no acute distress, appears ill Resp: mild expiratory wheezing, diminished throughout, no crackles CVS: Regular rate, arrhythmia on telemetry, +murmur GI: +BS, NT, no distention Skin: Warm, dry Neuro: Cranial nerves II-XII grossly intact bilaterally. Motor grossly intact bilaterally Extremities: No pitting edema Psych: Appropriate affect Const: General: No confusion Orientation/consciousness: No confusion Neuro: General: No confusion Results Labs 02/11/25 17:22 02/11/25 17:22 Labs: Laboratory Results - last 24 hr 02/11/25 02/11/25 02/11/25 17:22 17:48 19:48 MCV 93.4 MCH 30.7 MCHC 32.9 RDW 13.2 Plt Count 213 D MPV 9.3 L Immature Gran % (Auto) 0.3 Neut % (Auto) 68.1 Lymph % (Auto) 23.9 Imperial % (Auto) 7.1 Eos % (Auto) 0.2 Baso % (Auto) 0.4 Lymph # (Auto) 2.2 Imperial # (Auto) 0.7 Eos # (Auto) 0.0 Baso # (Auto) 0.0 Abs Immat Gran (auto) 0.03 Absolute Neuts (auto) 6.4 Absolute Nucleated RBC 0.000 Nucleated RBC % (auto) 0.0 VBG pH 7.38 VBG pCO2 49 VBG pO2 34 VBG HCO3 29 H VBG O2 Saturation 52.0 VBG Base Excess 3.4 Anion Gap 17 Estim Creat Clear Calc 93.7 Estimated GFR > 60 Random Glucose 157 H Lactic Acid 2.2 H* Lactic Acid F/U @ 2Hr 2.1 H* Calcium 8.6 Magnesium 2.3 Total Bilirubin 0.7 AST 33 H ALT 23 Alkaline Phosphatase 62 Troponin I High Sens 20.2 H B-Natriuretic Peptide 57 Total Protein 7.0 Albumin 4.3 Influenza Type A (PCR) NEGATIVE Influenza Type B (PCR) NEGATIVE RSV RNA Qual (PCR) NEGATIVE SARS-CoV-2 RNA (RT-PCR) NEGATIVE Assessment and Plan (1) Acute hypoxic respiratory failure: Status: Acute (2) Sepsis: Status: Acute (3) COPD exacerbation: Status: Acute (4) Elevated troponin: Status: Acute (5) Class 1 obesity: Status: Acute Plan Patient is a 59-year-old female with a past medical history significant for moderate COPD, CAD, type 2 diabetes (no medications), former smoker, HLD, class 1 obesity, who presented to the ED due to shortness of breath for the past few days, worsening. Acute hypoxic respiratory failure with sepsis secondary to acute COPD exacerbation with bronchitis - no leukocytosis, tachycardic and tachypneic, lactic acid elevated at 2.2, 2.1 on repeat, likely secondary to hypoxia, blood cultures x2 pending, not severe sepsis - chest x-ray negative - COVID/flu/RSV negative - patient is started on ceftriaxone in ED, switch to doxycycline b.i.d. - Solu-Medrol 60 mg b.i.d. - DuoNebs q.4h while awake - given 1 L IV fluids in ED, blood pressure stable - titrate oxygen as needed - monitor CBC and BMP telemetry with PVCs, elevated troponin - trop 20.2, likely due to hypoxia, will check repeat now - EKG pending - mag normal - echo - cardiology consult - monitor on tele CAD - continue statin and aspirin Type 2 diabetes - sliding scale insulin - diabetic diet class 1 obesity - BMI 31.5 - patient on GLP 1 - weight loss encouraged Med rec pending Full code VTE prophylaxis: Lovenox Patient with acute hypoxic respiratory failure with sepsis secondary to acute COPD exacerbation, requiring admission for at least 2 midnight stay for IV antibiotics, breathing treatments, steroids and monitoring. Quality Stroke Does the patient have a stroke diagnosis?: No VTE Prior VTE?: No VTE Risk Level:: Medical - moderate - high VTE Device Contraindication: Treatment Not Indicated VTE Drug Contraindication: N/A - Med Ordered
[2025-02-11 21:50] LABS: Reflex Lactate? 2 Y
--- NOTE | 2025-02-11 21:52 | PHA.MEDREC ---
Pharmacy Consult ? Medication Reconciliation Pharmacy has completed the medication reconciliation. Pt states she stopped taking pravastatin due to it causing swelling in her wrist roughly 3 weeks ago. Since she stopped pravastatin, swelling has subsided
[2025-02-11 22:09] LABS: Troponin-I High Sensitivity 16.2 ng/L (<3.5-17.0)
[2025-02-11 23:01] LABS: ~Lactic Acid-LAB USE ONLY 1.8 mmol/L (0.5-2.0)
[2025-02-12] VITALS (10 sets, daily range): BP systolic 109–141; BP diastolic 52–63; PULSE 76–88; RESP 12–22; TEMP 36.3–36.9; O2SAT 90–94; BMI 32.7
--- NOTE | 2025-02-12 01:19 | PM.EVENT ---
Event Note Date of Service: 02/12/25 Event Note: pt's IV infiltrated with the doxycycline. pt's nurse contacted the pharmacy who recommended 5, 0.2ml injections SQ around the extravazation site with hyaluornidase. this was performed by myself with guidance by Dr Delatorre in the ED, who injected 2 of the SQ injections and I injected the remaining 3 under his guidance. the skin was prepped with an alcohol swab each time prior to injection. pt tolerated well. Time Spent With Patient Time: Total time managing care of this patient today ____ minutes.
--- NOTE | 2025-02-12 01:43 | PC.NURSE ---
at 0010 pt's left AC EMS line was removed due to suspected infiltrate (cool to touch and discomfort). IV Doxy was stopped, new line initiated. RN called overnight pharmacy to inquire about how to handle this infiltration. RN spoke with Joseph Casiano who recommended that we administer Hyaluronidase intra dermal or subcutaneous around the site of infiltration specifically 5 separate 0.2ml injections. RN made hospitalist aware of the recommendations and new orders obtained. MD Delatorre to bedside to administer the medication per orders/recommendation
[2025-02-12 06:05] LABS: Hematocrit 45.4 % (37.0-47.0); Hemoglobin 14.6 g/dl (12.0-16.0); Mean Corpuscular HGB Conc 32.2 g/dl (31.0-35.0); Mean Corpuscular Hemoglobin 30.3 pg (27.0-33.0); Mean Corpuscular Volume 94.2 fL (80.0-98.0); NRBC Abs Auto 0.000 X10*3/uL (0.0-0.012); NRBC Pct Auto 0.0 /100WBC (0.0-0.2); Platelet Count 219 X10*3/uL (160-400); Red Blood Count 4.82 X10*6/uL (4.20-5.50); White Blood Count 7.2 X10*3/uL (4.8-10.8)
[2025-02-12 06:21] LABS: Anion Gap 13 (12-20); Blood Urea Nitrogen 16 mg/dL (9-16); Calcium 8.3 mg/dL (8.4-10.2); Carbon Dioxide 26 mmol/L (22-29); Chloride 105 mmol/L (96-108); Creatinine Clr Calc Pharmacy 115.5; Estimated Glomerular Filt Rate > 60; Potassium 4.4 mmol/L (3.3-5.1); Sodium 140 mmol/L (135-145)
--- NOTE | 2025-02-12 07:00 | CA_ITS ---
Transthoracic Echocardiogram Patient (Last, First, Middle): Jillian Raymond E Gender: Female Date of : 1965 Age: 59 Procedure Date: 02/12/2025 Procedure Type: Transthoracic Echocardiogram Location: ER Height: 170.18 cm Weight: 90.72 kg BSA: 2.02 m2 Heart Rate: bpm BP: 125 / 59 mmHg Brush Clearing Laborer: PJ Referring MD: Jes Justice PA-C Commodity Loan Clerk: Josiah Byrne MD Symptoms: abnormal tele, elevated trop Study Quality: Technically Difficult, contrast ECG Rhythm: Sinus Conclusions: - 1. Technically limited study 2. Mildly reduced LV ejection fraction 45-50% with impaired relaxation filling pattern 3. Limited evaluation of cardiac valves Findings Procedure Information Contrast agent, definity, is being given per protocol without apparent complications. Left Ventricle The left ventricle was not well visualized. Normal left ventricular cavity size. There is mildly increased left ventricular wall thickness. The left ventricular systolic function is mildly decreased. The visually estimated ejection fraction is between 45-50%. Spectral Doppler is indicative of an impaired relaxation filling pattern. Right Ventricle The right ventricle was not well visualized. There is normal right ventricular systolic function. Atria The left atrium was not well visualized. Interatrial shunt cannot be excluded. The right atrium was not well visualized. Aortic Valve The aortic valve was not well visualized. There is no aortic valve stenosis. Mitral Valve The mitral valve was not well visualized. There is no mitral valve regurgitation. Pulmonic Valve The pulmonic valve was not well visualized. Tricuspid Valve The tricuspid valve was not well visualized. Tricuspid regurgitation envelope is inadequate for calculation of right ventricular systolic pressure. Normal right atrial pressure. Great Vessels The aorta was not well visualized. The pulmonary artery was not well visualized. Venous The inferior vena cava is normal in size and collapses greater than 50% with inspiration. Pericardium/Pleural The pericardium was not well visualized. Prior Study Comparison No significant change compared to prior study dated: 12/20/2018. Measurements 2D Linear Measurements IVSd: 1.21 0.6-0.9/0.6-1.0 cm LVIDd: 5.14 3.9-5.3/4.2-5.9 cm LVIDd Index: 2.54 2.4-3.2/2.2-3.1 cm/m2 LVIDs: 3.71 2.0-3.6 cm LVPWd: 1.16 0.7-1.1 cm Ao Root: 3.60 2.1-3.5 cm LA Diam: 3.70 2.7-3.8/3.0-4.0 cm LAIDs Index: 1.83 1.5-2.3 cm/m2 LV Mass: 299.28 67-162/88-224 g LV Mass Index: 148.16 43-95/49-115 g/m2 LVOT Diam: 2.30 3.0+(-)1.3 cm 2D Systolic Function EF 4C: 49.20 >55% EF 2C: 54.50 >55% EF BiP: 48.80 >55% Mitral Valve MV Pk E: 0.56 MV PK A: 0.90 MV Decel Time: 106.00 E/A: 0.60 E'Lateral: 8.16 E'Medial: 3.92 E/E' Med: 14.30 E/E' Lat: 6.90 PHT: 31.00 MVA PHT: 7.10 Decel Beauregard: 5.27 Aortic Valve AoV Pk Edgar: 1.49 AoV Mn Edgar: 1.11 AoV VTI: 0.35 AoV Pk Grad: 9.00 Aov Mn Grad: 6.00 PRAFUL Cont.VTI: 2.24 LVOT LVOT Pk Edgar: 0.85 LVOT Mn Edgar: 0.58 LVOT VTI: 0.19 LVOT Pk Grad: 3.00 LVOT Mn Grad: 2.00 LVOT Diam: 2.30 LVOT Area: 4.15 Diastolic Function MV Pk E: 0.56 MV Pk A: 0.90 E/A: 0.60 E'Medial: 3.92 E/E' Med: 14.30 E' Laterial: 8.16 E/E' Lat: 6.90 Right Ventricle TAPSE (mm): 33.50 TVS' Edgar: 13.40 Tricuspid Valve TR Pk Edgar: 1.94 TR Pk Grad: 15.00 Great Vessels Aorta Ao Root-2D: 3.60 2.0-3.7 cm Pulmonary Valve PV Pk Edgar: 1.05 Peak PV Grad: 4.00 Updated in Other Vendor System with Status of Final Josiah Byrne MD electronically signed on 02/12/2025 10:45:04 AM with status of Final
[2025-02-12] MEDS: Albuterol/Iprat 2.5/0.5MG 3 ML AMPUL.NEB INHALE ×4 (07:33→18:40)
[2025-02-12 08:18] LABS: Glucose, Whole Blood 147 mg/dL (60-115)
[2025-02-12 11:25] LABS: Glucose, Whole Blood 180 mg/dL (60-115)
--- NOTE | 2025-02-12 12:56 | MHC.CM.PN ---
IMM DELIVERED PT LIVES ALONE AND IS FUNCTIONALLY INDEPENDENT, +DRIVES. NO DME OR SERVICES. +HCP PCP DR. MONCADA. DP: HOME, NO SERVICES IS THE GOAL. PT WILL NEED SHUTTLE OR LYFT RIDE HOME. CM WILL CONTINUE TO FOLLOW FOR ANY CHANGE TO DC PLAN/NEEDS.
--- NOTE | 2025-02-12 13:59 | P.PNIM_ITS ---
Subjective Subjective Date of Service: 02/12/25 Interval History: Notes improvement since admission. Still with O2 requirement Review of Systems Denies chest pain Admits shortness of breath with movement that has improved Denies nausea vomiting diarrhea Denies fever chills Physical Exam 2 Vital Signs: Vital Signs: Last Vital Signs Temp 97.3 F 02/12/25 09:59 Pulse 88 02/12/25 11:17 Resp 20 02/12/25 11:17 BP 137/59 L 02/12/25 09:59 Pulse Ox 90 L 02/12/25 09:59 O2 Del Method Oxymask 02/12/25 09:59 O2 Flow Rate 4 02/12/25 09:59 Oxygen Flow Rate 5 02/11/25 16:33 BMI result Body Mass Index 32.7 Const: Other: Awake alert no acute distress Resp: Other: Diminished at bases with scattered expiratory wheezes Cardio: Other: No S4; positive S1-S2; no S3 murmurs rubs or gallops GI: Other: Soft nontender nondistended normoactive bowel sounds Extrem: Other: No edema bilaterally Objective Data Active Medications Acetaminophen (Acetaminophen 325 Mg Tablet) 975 mg PO Q6H PRN PRN Reason: Pain, Mild 1-3,fever,headache Albuterol Sulfate (Albuterol Sulfate 90 Mcg 8 Gm Inhaler) 2 puff INHALE QID PRN PRN Reason: shortness of breath or wheezing Albuterol/Ipratropium (Albuterol/Iprat 2.5/0.5mg 3 Ml Ampul.Neb) 3 ml INHALE RQ4H WHILE AWAKE [facility] Last Admin: 02/12/25 11:16 Dose: 3 ml Documented By: NOVA Aspirin (Aspirin Enteric Coated 81 Mg Tablet.Dr) 81 mg PO DAILY [facility] Benzonatate (Benzonatate 100 Mg Capsule) 100 mg PO TID PRN PRN Reason: Cough Calcium Carbonate (Calcium Carbonate 750 Mg Tab.Chew) 750 mg PO Q4H PRN PRN Reason: Heartburn Dextrose (Dextrose 50 % 25 Gm/50 Ml Syringe) 25 gm IVPUSH Q15M PRN; Protocol PRN Reason: per Hypoglycemia Standing Ord. Enoxaparin Sodium (Enoxaparin Sodium 40 Mg/0.4 Ml Syringe) 40 mg SUBCUT Q24H [facility] Last Admin: 02/11/25 22:37 Dose: 40 mg Documented By: SAHRA Glucose (Glucose Gel 15 Gm Gel..Gram.) 15 gm PO Q15M PRN; Protocol PRN Reason: per Hypoglycemia Standing Ord. Doxycycline Hyclate 100 mg/ (Sodium Chloride) 250 mls @ 166.67 mls/hr IV Q12H [facility] Last Infusion: 02/12/25 12:37 Dose: Infused Documented By: ERICA Insulin Human Lispro (Insulin Lispro 100 Unit/Ml 3 Ml Vial) 0 unit SUBCUT QIDACHS [facility]; Protocol Loratadine (Loratadine 10 Mg Tablet) 10 mg PO DAILY [facility] Magnesium Hydroxide (Milk Of Magnesia 30 Ml Oral.Susp) 30 ml PO DAILY PRN PRN Reason: Constipation Melatonin (Melatonin 3 Mg Tablet) 6 mg PO BEDTIME PRN PRN Reason: Insomnia Methylprednisolone Sodium Succinate (Methylprednisolone Sod Succ 125 Mg/2 Ml Vial) 60 mg IVPUSH Q12H [facility] Last Admin: 02/12/25 10:59 Dose: 60 mg Documented By: ERICA Montelukast Sodium (Montelukast Sodium 10 Mg Tablet) 10 mg PO BEDTIME [facility] Non-Formulary Medication (Umeclidinium [Incruse Ellipta]) 1 inhalation INHALE DAILY [facility] Oxycodone HCl (Oxycodone Hcl Immed Release 5 Mg Tablet) 5 mg PO Q6H PRN PRN Reason: Pain, Moderate(Pain Scale 4-6) Sodium Chloride (0.9 % Sodium Chloride Flush 3 Ml Syringe) 3 ml IVFLUSH QSHIFT [facility] Last Admin: 02/12/25 10:46 Dose: Not Given Documented By: ERICA Non-Admin Reason: Not In Room Labs 02/12/25 05:53 02/12/25 05:53 Labs: Laboratory Results - last 24 hr 02/11/25 02/11/25 02/11/25 17:22 17:48 19:48 MCV 93.4 MCH 30.7 MCHC 32.9 RDW 13.2 Plt Count 213 D MPV 9.3 L Immature Gran % (Auto) 0.3 Neut % (Auto) 68.1 Lymph % (Auto) 23.9 Parmer % (Auto) 7.1 Eos % (Auto) 0.2 Baso % (Auto) 0.4 Lymph # (Auto) 2.2 Parmer # (Auto) 0.7 Eos # (Auto) 0.0 Baso # (Auto) 0.0 Abs Immat Gran (auto) 0.03 Absolute Neuts (auto) 6.4 Absolute Nucleated RBC 0.000 Nucleated RBC % (auto) 0.0 VBG pH 7.38 VBG pCO2 49 VBG pO2 34 VBG HCO3 29 H VBG O2 Saturation 52.0 VBG Base Excess 3.4 Anion Gap 17 Estim Creat Clear Calc 93.7 Estimated GFR > 60 POC Glucose Random Glucose 157 H Lactic Acid 2.2 H* Lactic Acid F/U @ 2Hr 2.1 H* Lactic Acid F/U @ 4Hr Calcium 8.6 Magnesium 2.3 Total Bilirubin 0.7 AST 33 H ALT 23 Alkaline Phosphatase 62 Troponin I High Sens 20.2 H B-Natriuretic Peptide 57 Total Protein 7.0 Albumin 4.3 Influenza Type A (PCR) NEGATIVE Influenza Type B (PCR) NEGATIVE RSV RNA Qual (PCR) NEGATIVE SARS-CoV-2 RNA (RT-PCR) NEGATIVE 02/11/25 02/11/25 02/12/25 21:39 22:35 05:53 MCV 94.2 MCH 30.3 MCHC 32.2 RDW 13.0 Plt Count 219 MPV 9.1 L Immature Gran % (Auto) Neut % (Auto) Lymph % (Auto) Parmer % (Auto) Eos % (Auto) Baso % (Auto) Lymph # (Auto) Parmer # (Auto) Eos # (Auto) Baso # (Auto) Abs Immat Gran (auto) Absolute Neuts (auto) Absolute Nucleated RBC 0.000 Nucleated RBC % (auto) 0.0 VBG pH VBG pCO2 VBG pO2 VBG HCO3 VBG O2 Saturation VBG Base Excess Anion Gap 13 Estim Creat Clear Calc 115.5 Estimated GFR > 60 POC Glucose Random Glucose 177 H Lactic Acid Lactic Acid F/U @ 2Hr Lactic Acid F/U @ 4Hr 1.8 Calcium 8.3 L Magnesium Total Bilirubin AST ALT Alkaline Phosphatase Troponin I High Sens 16.2 B-Natriuretic Peptide Total Protein Albumin Influenza Type A (PCR) Influenza Type B (PCR) RSV RNA Qual (PCR) SARS-CoV-2 RNA (RT-PCR) 02/12/25 02/12/25 08:08 11:20 MCV MCH MCHC RDW Plt Count MPV Immature Gran % (Auto) Neut % (Auto) Lymph % (Auto) Parmer % (Auto) Eos % (Auto) Baso % (Auto) Lymph # (Auto) Parmer # (Auto) Eos # (Auto) Baso # (Auto) Abs Immat Gran (auto) Absolute Neuts (auto) Absolute Nucleated RBC Nucleated RBC % (auto) VBG pH VBG pCO2 VBG pO2 VBG HCO3 VBG O2 Saturation VBG Base Excess Anion Gap Estim Creat Clear Calc Estimated GFR POC Glucose 147 H 180 H Random Glucose Lactic Acid Lactic Acid F/U @ 2Hr Lactic Acid F/U @ 4Hr Calcium Magnesium Total Bilirubin AST ALT Alkaline Phosphatase Troponin I High Sens B-Natriuretic Peptide Total Protein Albumin Influenza Type A (PCR) Influenza Type B (PCR) RSV RNA Qual (PCR) SARS-CoV-2 RNA (RT-PCR) Assessment and Plan (1) Acute hypoxic respiratory failure: Status: Acute (2) COPD exacerbation: Status: Acute Plan Patient is a 59-year-old female with a past medical history significant for moderate COPD, CAD, type 2 diabetes (no medications), former smoker, HLD, class 1 obesity, who presented to the ED due to shortness of breath for the past few days, worsening. 1.Acute hypoxic respiratory failure with sepsis secondary to acute COPD exacerbation with bronchitis - ceftriaxone/azithromycin (2) - patient is started on ceftriaxone in ED, switch to doxycycline b.i.d. .... Doxy DC secondary to infiltration - Solu-Medrol 60 mg q.6 hours - DuoNebs q.4h while awake - titrate O2 to maintain sats greater than equal to 92% 2.Telemetry with PVCs, elevated troponin - trop 20.2, likely due to hypoxia, will check repeat now - repeat troponin flat - echo done.. LVEF 45-50% -DC telemetry 3.CAD -Stable and well compensated 4.Type 2 diabetes - no current therapies diet control -lispro correctional scale -adjust as indicated class 1 obesity Full code Lovenox Patient requiring ongoing hospitalization for IV antibiotics to treat acute COPD exacerbation along with pulse dose steroids Quality Stroke Does the patient have a stroke diagnosis?: No VTE Prior VTE?: No VTE Risk Level:: Medical - moderate - high VTE Device Contraindication: Treatment Not Indicated VTE Drug Contraindication: N/A - Med Ordered
[2025-02-12] MEDS: 0.9 % Sodium Chloride Flush 3 ML SYRINGE IVFLUSH ×2 (16:15→23:32)
[2025-02-12 16:22] LABS: Glucose, Whole Blood 186 mg/dL (60-115)
--- NOTE | 2025-02-12 16:50 | PC.NURSE ---
Telemonitor no longer needed per Dr. Martinez.
[2025-02-12 21:11] LABS: Glucose, Whole Blood 216 mg/dL (60-115)
[2025-02-13] VITALS (9 sets, daily range): BP systolic 121–162; BP diastolic 58–72; PULSE 70–83; RESP 14–20; TEMP 36–36.4; O2SAT 85–92
[2025-02-13 06:43] LABS: Anion Gap 11 (12-20); Blood Urea Nitrogen 20 mg/dL (9-16); Calcium 8.4 mg/dL (8.4-10.2); Carbon Dioxide 29 mmol/L (22-29); Chloride 105 mmol/L (96-108); Creatinine Clr Calc Pharmacy 115.8; Estimated Glomerular Filt Rate > 60; Potassium 4.5 mmol/L (3.3-5.1); Sodium 140 mmol/L (135-145)
[2025-02-13 07:15] LABS: Hematocrit 40.8 % (37.0-47.0); Hemoglobin 13.2 g/dl (12.0-16.0); Mean Corpuscular HGB Conc 32.4 g/dl (31.0-35.0); Mean Corpuscular Hemoglobin 30.3 pg (27.0-33.0); Mean Corpuscular Volume 93.8 fL (80.0-98.0); NRBC Abs Auto 0.000 X10*3/uL (0.0-0.012); NRBC Pct Auto 0.0 /100WBC (0.0-0.2); Platelet Count 267 X10*3/uL (160-400); Red Blood Count 4.35 X10*6/uL (4.20-5.50); White Blood Count 16.3 X10*3/uL (4.8-10.8)
[2025-02-13 07:24] LABS: Glucose, Whole Blood 157 mg/dL (60-115)
[2025-02-13] MEDS: Tiotropium Bromide 2.5 mcg 1 PUFF/2.5 MCG MIST.INHAL 2 PUFF INHALE (07:51)
[2025-02-13] MEDS: Albuterol/Iprat 2.5/0.5MG 3 ML AMPUL.NEB INHALE ×4 (07:51→20:00)
[2025-02-13] MEDS: Aspirin Enteric Coated 81 MG TABLET.DR PO (08:00)
[2025-02-13] MEDS: 0.9 % Sodium Chloride Flush 3 ML SYRINGE IVFLUSH ×3 (08:01→21:09)
[2025-02-13 11:17] LABS: Glucose, Whole Blood 237 mg/dL (60-115)
--- NOTE | 2025-02-13 15:50 | P.PNIM_ITS ---
Subjective Subjective Date of Service: 02/13/25 Interval History: Doxycycline IV infiltrated overnight. See event note for details. Patient notes improvement since admission Review of Systems Denies chest pain Admits shortness of breath with movement that has improved Denies nausea vomiting diarrhea Denies fever chills Physical Exam 2 Vital Signs: Vital Signs: Last Vital Signs Temp 97.5 F 02/13/25 15:24 Pulse 81 02/13/25 15:33 Resp 14 02/13/25 15:33 BP 158/68 H 02/13/25 15:24 Pulse Ox 92 02/13/25 15:24 O2 Del Method Oxymask 02/13/25 15:24 O2 Flow Rate 4 02/13/25 15:24 Oxygen Flow Rate 5 02/11/25 16:33 BMI result Body Mass Index 32.7 Const: Other: Awake alert no acute distress Resp: Other: Diminished at bases with scattered expiratory wheezes Cardio: Other: No S4; positive S1-S2; no S3 murmurs rubs or gallops GI: Other: Soft nontender nondistended normoactive bowel sounds Extrem: Other: No edema bilaterally Objective Data Active Medications Acetaminophen (Acetaminophen 325 Mg Tablet) 975 mg PO Q6H PRN PRN Reason: Pain, Mild 1-3,fever,headache Albuterol Sulfate (Albuterol Sulfate 90 Mcg 8 Gm Inhaler) 2 puff INHALE QID PRN PRN Reason: shortness of breath or wheezing Albuterol/Ipratropium (Albuterol/Iprat 2.5/0.5mg 3 Ml Ampul.Neb) 3 ml INHALE RQ4H WHILE AWAKE [facility] Last Admin: 02/13/25 15:31 Dose: 3 ml Documented By: RALPH Aspirin (Aspirin Enteric Coated 81 Mg Tablet.) 81 mg PO DAILY [facility] Last Admin: 02/13/25 08:00 Dose: 81 mg Documented By: KEYSHA Benzonatate (Benzonatate 100 Mg Capsule) 100 mg PO TID PRN PRN Reason: Cough Calcium Carbonate (Calcium Carbonate 750 Mg Tab.Chew) 750 mg PO Q4H PRN PRN Reason: Heartburn Dextrose (Dextrose 50 % 25 Gm/50 Ml Syringe) 25 gm IVPUSH Q15M PRN; Protocol PRN Reason: per Hypoglycemia Standing Ord. Enoxaparin Sodium (Enoxaparin Sodium 40 Mg/0.4 Ml Syringe) 40 mg SUBCUT Q24H [facility] Last Admin: 02/12/25 21:18 Dose: 40 mg Documented By: MARLEN Glucose (Glucose Gel 15 Gm Gel..Gram.) 15 gm PO Q15M PRN; Protocol PRN Reason: per Hypoglycemia Standing Ord. Doxycycline Hyclate 100 mg/ (Sodium Chloride) 250 mls @ 166.67 mls/hr IV Q12H [facility] Last Infusion: 02/13/25 11:33 Dose: Infused Documented By: KEYSHA Insulin Human Lispro (Insulin Lispro 100 Unit/Ml 3 Ml Vial) 0 unit SUBCUT QIDACHS [facility]; Protocol Last Admin: 02/13/25 11:51 Dose: 4 unit Documented By: ERICA Loratadine (Loratadine 10 Mg Tablet) 10 mg PO DAILY [facility] Last Admin: 02/13/25 08:00 Dose: 10 mg Documented By: KEYSHA Magnesium Hydroxide (Milk Of Magnesia 30 Ml Oral.Susp) 30 ml PO DAILY PRN PRN Reason: Constipation Melatonin (Melatonin 3 Mg Tablet) 6 mg PO BEDTIME PRN PRN Reason: Insomnia Methylprednisolone Sodium Succinate (Methylprednisolone Sod Succ 125 Mg/2 Ml Vial) 60 mg IVPUSH Q6H [facility] Last Admin: 02/13/25 13:32 Dose: 60 mg Documented By: ERICA Montelukast Sodium (Montelukast Sodium 10 Mg Tablet) 10 mg PO BEDTIME [facility] Last Admin: 02/12/25 21:18 Dose: 10 mg Documented By: MARLEN Oxycodone HCl (Oxycodone Hcl Immed Release 5 Mg Tablet) 5 mg PO Q6H PRN PRN Reason: Pain, Moderate(Pain Scale 4-6) Sodium Chloride (0.9 % Sodium Chloride Flush 3 Ml Syringe) 3 ml IVFLUSH QSHIFT [facility] Last Admin: 02/13/25 08:01 Dose: 3 ml Documented By: KEYSHA Tiotropium [place] (Tiotropium [place] 2.5 Mcg 1 Puff/2.5 Mcg Mist.Inhal) 2 puff INHALE RDAILY [facility] Last Admin: 02/13/25 07:51 Dose: 2 puff Documented By: RALPH Labs 02/13/25 05:35 02/13/25 05:35 Labs: Laboratory Results - last 24 hr 02/12/25 02/12/25 02/13/25 16:18 21:06 05:35 MCV 93.8 MCH 30.3 MCHC 32.4 RDW 13.1 Plt Count 267 MPV 10.1 Absolute Nucleated RBC 0.000 Nucleated RBC % (auto) 0.0 Anion Gap 11 L Estim Creat Clear Calc 115.8 Estimated GFR > 60 POC Glucose 186 H 216 H Random Glucose 175 H Calcium 8.4 02/13/25 02/13/25 07:09 11:08 MCV MCH MCHC RDW Plt Count MPV Absolute Nucleated RBC Nucleated RBC % (auto) Anion Gap Estim Creat Clear Calc Estimated GFR POC Glucose 157 H 237 H Random Glucose Calcium Microbiology Microbiology Results: Microbiology 02/11/25 17:25 Blood Culture - Preliminary Blood - Venous No growth after 24 hours. 02/11/25 17:22 Blood Culture - Preliminary Blood - Venous No growth after 24 hours. Assessment and Plan (1) COPD exacerbation: Status: Acute (2) DM type 2 (diabetes mellitus, type 2): Status: Acute Plan Patient is a 59-year-old female with a past medical history significant for moderate COPD, CAD, type 2 diabetes (no medications), former smoker, HLD, class 1 obesity, who presented to the ED due to shortness of breath for the past few days, worsening. 1.Acute hypoxic respiratory failure with sepsis secondary to acute COPD exacerbation with bronchitis - doxycycline PO (2) -Solu-Medrol 60 mg IV q.12 - DuoNebs q.4h while awake - titrate O2 to maintain sats greater than equal to 92% 2..CAD -Stable and well compensated 3.Type 2 diabetes - no current therapies diet control -lispro correctional scale -adjust as indicated class 1 obesity Full code Lovenox Patient requiring ongoing hospitalization for IV steroids to treat acute COPD exacerbation along with pulse dose steroids Quality Stroke Does the patient have a stroke diagnosis?: No VTE Prior VTE?: No VTE Risk Level:: Medical - moderate - high VTE Device Contraindication: Treatment Not Indicated VTE Drug Contraindication: N/A - Med Ordered
[2025-02-13 16:14] LABS: Glucose, Whole Blood 164 mg/dL (60-115)
[2025-02-13 20:19] LABS: Glucose, Whole Blood 236 mg/dL (60-115)
[2025-02-14] VITALS (9 sets, daily range): BP systolic 139–179; BP diastolic 62–79; PULSE 68–93; RESP 16–20; TEMP 36.2–36.9; O2SAT 90–94
[2025-02-14 06:52] LABS: Anion Gap 11 (12-20); Blood Urea Nitrogen 19 mg/dL (9-16); Calcium 8.4 mg/dL (8.4-10.2); Carbon Dioxide 30 mmol/L (22-29); Chloride 104 mmol/L (96-108); Creatinine Clr Calc Pharmacy 108.6; Estimated Glomerular Filt Rate > 60; Potassium 4.3 mmol/L (3.3-5.1); Sodium 141 mmol/L (135-145)
[2025-02-14 07:00] LABS: Hematocrit 43.6 % (37.0-47.0); Hemoglobin 14.1 g/dl (12.0-16.0); Mean Corpuscular HGB Conc 32.3 g/dl (31.0-35.0); Mean Corpuscular Hemoglobin 30.5 pg (27.0-33.0); Mean Corpuscular Volume 94.4 fL (80.0-98.0); NRBC Abs Auto 0.000 X10*3/uL (0.0-0.012); NRBC Pct Auto 0.0 /100WBC (0.0-0.2); Platelet Count 329 X10*3/uL (160-400); Red Blood Count 4.62 X10*6/uL (4.20-5.50); White Blood Count 17.0 X10*3/uL (4.8-10.8)
[2025-02-14] MEDS: Albuterol/Iprat 2.5/0.5MG 3 ML AMPUL.NEB INHALE ×4 (07:36→18:36)
[2025-02-14] MEDS: Tiotropium Bromide 2.5 mcg 1 PUFF/2.5 MCG MIST.INHAL 2 PUFF INHALE (07:36)
[2025-02-14 07:44] LABS: Glucose, Whole Blood 173 mg/dL (60-115)
[2025-02-14] MEDS: 0.9 % Sodium Chloride Flush 3 ML SYRINGE IVFLUSH ×2 (08:12→17:02)
[2025-02-14] MEDS: Aspirin Enteric Coated 81 MG TABLET.DR PO (08:12)
[2025-02-14 11:20] LABS: Glucose, Whole Blood 290 mg/dL (60-115)
--- NOTE | 2025-02-14 12:26 | P.PNIM_ITS ---
Subjective Subjective Date of Service: 02/14/25 Interval History: Considerable O2 requirement. 6 L via mask for ambulation. Remains afebrile Review of Systems Denies chest pain Admits shortness of breath with movement that has improved Denies nausea vomiting diarrhea Denies fever chills Physical Exam 2 Vital Signs: Vital Signs: Last Vital Signs Temp 97.1 F 02/14/25 07:36 Pulse 83 02/14/25 11:09 Resp 16 02/14/25 11:09 BP 162/72 H 02/14/25 07:36 Pulse Ox 93 02/14/25 07:36 O2 Del Method Oxymask 02/14/25 07:36 O2 Flow Rate 4 02/14/25 07:36 Oxygen Flow Rate 5 02/11/25 16:33 BMI result Body Mass Index 32.7 Const: Other: Awake alert no acute distress Resp: Other: Diminished at bases with scattered expiratory wheezes and diffuse rhonchi Cardio: Other: No S4; positive S1-S2; no S3 murmurs rubs or gallops GI: Other: Soft nontender nondistended normoactive bowel sounds Extrem: Other: No edema bilaterally Objective Data Active Medications Acetaminophen (Acetaminophen 325 Mg Tablet) 975 mg PO Q6H PRN PRN Reason: Pain, Mild 1-3,fever,headache Albuterol Sulfate (Albuterol Sulfate 90 Mcg 8 Gm Inhaler) 2 puff INHALE QID PRN PRN Reason: shortness of breath or wheezing Albuterol/Ipratropium (Albuterol/Iprat 2.5/0.5mg 3 Ml Ampul.Neb) 3 ml INHALE RQ4H WHILE AWAKE [facility] Last Admin: 02/14/25 11:08 Dose: 3 ml Documented By: KONSTANTIN Aspirin (Aspirin Enteric Coated 81 Mg Tablet.) 81 mg PO DAILY [facility] Last Admin: 02/14/25 08:12 Dose: 81 mg Documented By: ALLISON Benzonatate (Benzonatate 100 Mg Capsule) 100 mg PO TID PRN PRN Reason: Cough Calcium Carbonate (Calcium Carbonate 750 Mg Tab.Chew) 750 mg PO Q4H PRN PRN Reason: Heartburn Dextrose (Dextrose 50 % 25 Gm/50 Ml Syringe) 25 gm IVPUSH Q15M PRN; Protocol PRN Reason: per Hypoglycemia Standing Ord. Enoxaparin Sodium (Enoxaparin Sodium 40 Mg/0.4 Ml Syringe) 40 mg SUBCUT Q24H [facility] Last Admin: 02/13/25 21:06 Dose: Not Given Documented By: APRIL Non-Admin Reason: Patient Refused Glucose (Glucose Gel 15 Gm Gel..Gram.) 15 gm PO Q15M PRN; Protocol PRN Reason: per Hypoglycemia Standing Ord. Azithromycin 500 mg/ Sodium (Chloride) 250 mls @ 125 mls/hr IV Q24H [facility] Last Infusion: 02/14/25 12:08 Dose: Infused Documented By: ALLISON Insulin Human Lispro (Insulin Lispro 100 Unit/Ml 3 Ml Vial) 0 unit SUBCUT QIDACHS [facility]; Protocol Last Admin: 02/14/25 12:03 Dose: 6 unit Documented By: ALLISON Loratadine (Loratadine 10 Mg Tablet) 10 mg PO DAILY [facility] Last Admin: 02/14/25 08:12 Dose: 10 mg Documented By: ALLISON Magnesium Hydroxide (Milk Of Magnesia 30 Ml Oral.Susp) 30 ml PO DAILY PRN PRN Reason: Constipation Melatonin (Melatonin 3 Mg Tablet) 6 mg PO BEDTIME PRN PRN Reason: Insomnia Methylprednisolone Sodium Succinate (Methylprednisolone Sod Succ 125 Mg/2 Ml Vial) 60 mg IVPUSH Q6H [facility] Last Admin: 02/14/25 12:03 Dose: 60 mg Documented By: ALLISON Montelukast Sodium (Montelukast Sodium 10 Mg Tablet) 10 mg PO BEDTIME [facility] Last Admin: 02/13/25 21:06 Dose: 10 mg Documented By: APRIL Oxycodone HCl (Oxycodone Hcl Immed Release 5 Mg Tablet) 5 mg PO Q6H PRN PRN Reason: Pain, Moderate(Pain Scale 4-6) Sodium Chloride (0.9 % Sodium Chloride Flush 3 Ml Syringe) 3 ml IVFLUSH QSHIFT [facility] Last Admin: 02/14/25 08:12 Dose: 3 ml Documented By: ALLISNO Tiotropium [place] (Tiotropium [place] 2.5 Mcg 1 Puff/2.5 Mcg Mist.Inhal) 2 puff INHALE RDAILY [facility] Last Admin: 02/14/25 07:36 Dose: 2 puff Documented By: KONSTANTIN Labs 02/14/25 05:52 02/14/25 05:52 Labs: Laboratory Results - last 24 hr 02/13/25 02/13/25 02/14/25 16:10 20:13 05:52 MCV 94.4 MCH 30.5 MCHC 32.3 RDW 13.1 Plt Count 329 MPV 9.9 Absolute Nucleated RBC 0.000 Nucleated RBC % (auto) 0.0 Anion Gap 11 L Estim Creat Clear Calc 108.6 Estimated GFR > 60 POC Glucose 164 H 236 H Random Glucose 192 H Calcium 8.4 02/14/25 02/14/25 07:39 11:03 MCV MCH MCHC RDW Plt Count MPV Absolute Nucleated RBC Nucleated RBC % (auto) Anion Gap Estim Creat Clear Calc Estimated GFR POC Glucose 173 H 290 H Random Glucose Calcium Microbiology Microbiology Results: Microbiology 02/11/25 17:25 Blood Culture - Preliminary Blood - Venous No growth after 48 hours. 02/11/25 17:22 Blood Culture - Preliminary Blood - Venous No growth after 48 hours. Assessment and Plan (1) COPD exacerbation: Status: Acute (2) DM type 2 (diabetes mellitus, type 2): Status: Acute Plan Patient is a 59-year-old female with a past medical history significant for moderate COPD, CAD, type 2 diabetes (no medications), former smoker, HLD, class 1 obesity, who presented to the ED due to shortness of breath for the past few days, worsening. 1.Acute hypoxic respiratory failure with sepsis secondary to acute COPD exacerbation with bronchitis - doxycycline PO (2).. Switch to ceftriaxone/azithromycin (1) given essentially no improvement -Solu-Medrol 60 mg IV q.12 - DuoNebs q.4h while awake -check CT chest x-ray - titrate O2 to maintain sats greater than equal to 92% 2..CAD -Stable and well compensated 3.Type 2 diabetes - no current therapies diet control -lispro correctional scale -adjust as indicated class 1 obesity Full code Lovenox Patient requiring ongoing hospitalization for IV steroids to treat acute COPD exacerbation along with pulse dose steroids Quality Stroke Does the patient have a stroke diagnosis?: No VTE Prior VTE?: No VTE Risk Level:: Medical - moderate - high VTE Device Contraindication: Treatment Not Indicated VTE Drug Contraindication: N/A - Med Ordered
[2025-02-14 16:08] LABS: Glucose, Whole Blood 188 mg/dL (60-115)
[2025-02-14 21:08] LABS: Glucose, Whole Blood 268 mg/dL (60-115)
[2025-02-15] VITALS (11 sets, daily range): BP systolic 130–146; BP diastolic 63–80; PULSE 62–780; RESP 18–19; TEMP 36.3–36.9; O2SAT 83–94
[2025-02-15 05:33] LABS: MANUAL DIFF FLAG NO
[2025-02-15 05:55] LABS: Alanine Aminotransferase 30 U/L (0-31); Albumin Level 3.5 g/dL (3.5-5.0); Alkaline Phosphatase 60 U/L (39-117); Anion Gap 11 (12-20); Aspartate Amino Transferase 20 U/L (5-31); Blood Urea Nitrogen 19 mg/dL (9-16); Calcium 8.3 mg/dL (8.4-10.2); Carbon Dioxide 28 mmol/L (22-29); Chloride 105 mmol/L (96-108); Creatinine Clr Calc Pharmacy 107.0; Estimated Glomerular Filt Rate > 60; Potassium 4.4 mmol/L (3.3-5.1); Sodium 140 mmol/L (135-145); Total Protein 5.8 g/dL (6.5-8.0)
[2025-02-15 06:12] LABS: Hematocrit 41.9 % (37.0-47.0); Hemoglobin 13.7 g/dl (12.0-16.0); Imm Gran Abs Auto 0.41 X10*3/uL (0.00-0.03); Imm Gran Pct Auto 2.5 % (0.0-0.4); Lymphocytes Absolute Auto 1.6 X10*3/uL (1.2-4.9); Mean Corpuscular HGB Conc 32.7 g/dl (31.0-35.0); Mean Corpuscular Hemoglobin 30.5 pg (27.0-33.0); Mean Corpuscular Volume 93.3 fL (80.0-98.0); NRBC Abs Auto 0.000 X10*3/uL (0.0-0.012); NRBC Pct Auto 0.0 /100WBC (0.0-0.2); Platelet Count 330 X10*3/uL (160-400); Red Blood Count 4.49 X10*6/uL (4.20-5.50); White Blood Count 16.3 X10*3/uL (4.8-10.8)
[2025-02-15 07:26] LABS: Glucose, Whole Blood 236 mg/dL (60-115)
[2025-02-15] MEDS: Aspirin Enteric Coated 81 MG TABLET.DR PO (07:42)
[2025-02-15] MEDS: 0.9 % Sodium Chloride Flush 3 ML SYRINGE IVFLUSH ×3 (07:44→20:09)
[2025-02-15] MEDS: Albuterol/Iprat 2.5/0.5MG 3 ML AMPUL.NEB INHALE ×4 (08:15→18:54)
[2025-02-15] MEDS: Tiotropium Bromide 2.5 mcg 1 PUFF/2.5 MCG MIST.INHAL 2 PUFF INHALE (08:16)
--- NOTE | 2025-02-15 11:09 | PC.NURSE ---
Resp Status: Pt ambulated W 6L oxi mask desat to 84% sat, returned to 92% sat w rest on 4L oxi mask. MD lehman
[2025-02-15 11:20] LABS: Glucose, Whole Blood 278 mg/dL (60-115)
--- NOTE | 2025-02-15 13:49 | HO.PM.IMPN ---
Subjective Subjective Date of Service: 02/15/25 Interval History: Still short of breath with the exertion but able to ambulate in the hallway. Sats drop into the 80s but recovered quickly Review of Systems Denies chest pain Admits shortness of breath with movement that has improved Denies nausea vomiting diarrhea Denies fever chills Physical Exam Vital Signs: Vital Signs: Last Vital Signs Temp 98.3 F 02/15/25 07:49 Pulse 62 02/15/25 11:46 Resp 18 02/15/25 11:46 BP 130/63 02/15/25 07:49 Pulse Ox 92 02/15/25 09:28 O2 Del Method Oxymask 02/15/25 09:28 O2 Flow Rate 4 02/15/25 07:49 Oxygen Flow Rate 5 02/11/25 16:33 BMI result Body Mass Index 32.7 Const: Other: Awake alert no acute distress Resp: Other: Diminished at bases with scattered expiratory wheezes and diffuse rhonchi Cardio: Other: No S4; positive S1-S2; no S3 murmurs rubs or gallops GI: Other: Soft nontender nondistended normoactive bowel sounds Extrem: Other: No edema bilaterally Objective Data Active Medications Acetaminophen (Acetaminophen 325 Mg Tablet) 975 mg PO Q6H PRN PRN Reason: Pain, Mild 1-3,fever,headache Albuterol Sulfate (Albuterol Sulfate 90 Mcg 8 Gm Inhaler) 2 puff INHALE QID PRN PRN Reason: shortness of breath or wheezing Albuterol/Ipratropium (Albuterol/Iprat 2.5/0.5mg 3 Ml Ampul.Neb) 3 ml INHALE RQ4H WHILE AWAKE [facility] Last Admin: 02/15/25 11:42 Dose: 3 ml Documented By: RALPH Aspirin (Aspirin Enteric Coated 81 Mg Tablet.Dr) 81 mg PO DAILY [facility] Last Admin: 02/15/25 07:42 Dose: 81 mg Documented By: ALLISON Benzonatate (Benzonatate 100 Mg Capsule) 100 mg PO TID PRN PRN Reason: Cough Calcium Carbonate (Calcium Carbonate 750 Mg Tab.Chew) 750 mg PO Q4H PRN PRN Reason: Heartburn Dextrose (Dextrose 50 % 25 Gm/50 Ml Syringe) 25 gm IVPUSH Q15M PRN; Protocol PRN Reason: per Hypoglycemia Standing Ord. Enoxaparin Sodium (Enoxaparin Sodium 40 Mg/0.4 Ml Syringe) 40 mg SUBCUT Q24H [facility] Last Admin: 02/14/25 21:45 Dose: Not Given Documented By: APRIL Non-Admin Reason: Patient Refused Glucose (Glucose Gel 15 Gm Gel..Gram.) 15 gm PO Q15M PRN; Protocol PRN Reason: per Hypoglycemia Standing Ord. Azithromycin 500 mg/ Sodium (Chloride) 250 mls @ 125 mls/hr IV Q24H [facility] Last Infusion: 02/15/25 11:52 Dose: Infused Documented By: ALLISON Insulin Human Lispro (Insulin Lispro 100 Unit/Ml 3 Ml Vial) 0 unit SUBCUT QIDACHS [facility]; Protocol Last Admin: 02/15/25 11:47 Dose: 6 unit Documented By: ALLISON Loratadine (Loratadine 10 Mg Tablet) 10 mg PO DAILY [facility] Last Admin: 02/15/25 07:42 Dose: 10 mg Documented By: ALLISON Magnesium Hydroxide (Milk Of Magnesia 30 Ml Oral.Susp) 30 ml PO DAILY PRN PRN Reason: Constipation Melatonin (Melatonin 3 Mg Tablet) 6 mg PO BEDTIME PRN PRN Reason: Insomnia Methylprednisolone Sodium Succinate (Methylprednisolone Sod Succ 125 Mg/2 Ml Vial) 60 mg IVPUSH Q6H [facility] Last Admin: 02/15/25 11:48 Dose: 60 mg Documented By: ALLISON Montelukast Sodium (Montelukast Sodium 10 Mg Tablet) 10 mg PO BEDTIME [facility] Last Admin: 02/14/25 21:42 Dose: 10 mg Documented By: APRIL Oxycodone HCl (Oxycodone Hcl Immed Release 5 Mg Tablet) 5 mg PO Q6H PRN PRN Reason: Pain, Moderate(Pain Scale 4-6) Sodium Chloride (0.9 % Sodium Chloride Flush 3 Ml Syringe) 3 ml IVFLUSH QSHIFT [facility] Last Admin: 02/15/25 07:44 Dose: 3 ml Documented By: ALLISON Tiotropium [place] (Tiotropium [place] 2.5 Mcg 1 Puff/2.5 Mcg Mist.Inhal) 2 puff INHALE RDAILY [facility] Last Admin: 02/15/25 08:16 Dose: 2 puff Documented By: JEFFERY Labs 02/15/25 05:01 02/15/25 05:01 Labs: Laboratory Results - last 24 hr 02/14/25 02/14/25 02/15/25 16:02 21:03 05:01 MCV 93.3 MCH 30.5 MCHC 32.7 RDW 13.2 Plt Count 330 MPV 9.6 Immature Gran % (Auto) 2.5 H Neut % (Auto) 83.6 H Lymph % (Auto) 9.9 L [place] % (Auto) 3.7 Eos % (Auto) 0.0 Baso % (Auto) 0.3 Lymph # (Auto) 1.6 [place] # (Auto) 0.6 Eos # (Auto) 0.0 Baso # (Auto) 0.1 Abs Immat Gran (auto) 0.41 H Absolute Neuts (auto) 13.6 H Absolute Nucleated RBC 0.000 Nucleated RBC % (auto) 0.0 Anion Gap 11 L Estim Creat Clear Calc 107.0 Estimated GFR > 60 POC Glucose 188 H 268 H Fasting Glucose 229 H Calcium 8.3 L Total Bilirubin 0.3 AST 20 ALT 30 Alkaline Phosphatase 60 Total Protein 5.8 L Albumin 3.5 02/15/25 02/15/25 07:23 11:14 MCV MCH MCHC RDW Plt Count MPV Immature Gran % (Auto) Neut % (Auto) Lymph % (Auto) [place] % (Auto) Eos % (Auto) Baso % (Auto) Lymph # (Auto) [place] # (Auto) Eos # (Auto) Baso # (Auto) Abs Immat Gran (auto) Absolute Neuts (auto) Absolute Nucleated RBC Nucleated RBC % (auto) Anion Gap Estim Creat Clear Calc Estimated GFR POC Glucose 236 H 278 H Fasting Glucose Calcium Total Bilirubin AST ALT Alkaline Phosphatase Total Protein Albumin Assessment and Plan (1) COPD exacerbation: Status: Acute (2) DM type 2 (diabetes mellitus, type 2): Status: Acute Plan Patient is a 59-year-old female with a past medical history significant for moderate COPD, CAD, type 2 diabetes (no medications), former smoker, HLD, class 1 obesity, who presented to the ED due to shortness of breath for the past few days, worsening. 1.Acute hypoxic respiratory failure with sepsis secondary to acute COPD exacerbation with bronchitis - doxycycline PO (2).. Switch to ceftriaxone/azithromycin (2) given essentially no improvement -Solu-Medrol 60 mg IV q.12 - DuoNebs q.4h while awake -check chest x-ray no consolidation - titrate O2 to maintain sats greater than equal to 92% 2..CAD -Stable and well compensated 3.Type 2 diabetes - no current therapies diet control -lispro correctional scale -adjust as indicated class 1 obesity Full code Lovenox Patient requiring ongoing hospitalization for IV steroids to treat acute COPD exacerbation along with pulse dose steroids Quality Stroke Does the patient have a stroke diagnosis?: No VTE Prior VTE?: No VTE Risk Level:: Medical - moderate - high VTE Device Contraindication: Treatment Not Indicated VTE Drug Contraindication: N/A - Med Ordered
[2025-02-15 16:06] LABS: Glucose, Whole Blood 224 mg/dL (60-115)
[2025-02-15 20:02] LABS: Glucose, Whole Blood 227 mg/dL (60-115)
[2025-02-16] VITALS (12 sets, daily range): BP systolic 131–162; BP diastolic 65–89; PULSE 67–80; RESP 17–18; TEMP 36.1–36.9; O2SAT 86–96
[2025-02-16 07:09] LABS: Glucose, Whole Blood 220 mg/dL (60-115)
[2025-02-16] MEDS: Aspirin Enteric Coated 81 MG TABLET.DR PO (07:42)
[2025-02-16] MEDS: 0.9 % Sodium Chloride Flush 3 ML SYRINGE IVFLUSH ×3 (07:44→21:19)
[2025-02-16] MEDS: Tiotropium Bromide 2.5 mcg 1 PUFF/2.5 MCG MIST.INHAL 2 PUFF INHALE (07:59)
[2025-02-16] MEDS: Albuterol/Iprat 2.5/0.5MG 3 ML AMPUL.NEB INHALE ×4 (07:59→19:41)
[2025-02-16 09:14] LABS: D Dimer High Sensitivity 206 NG/ML
[2025-02-16] MEDS: vancomycin/NS 2,000 MG/500 ML PLAST..BAG 250 MG IV (09:54)
--- NOTE | 2025-02-16 10:06 | PHA.PROG ---
Admission Date/Time: February 11, 2025 20:21 Indication: Resp Infection Weight in k.6 kg Adjusted body weight in K.8 Magazine body weight in K.6 Obesity Dosing Indication % IBW: 150% Serum Creatinine - Last 168 Hours 02/11/25 02/12/25 02/13/25 17:22 05:53 05:35 Creatinine 0.74 0.60 0.61 02/14/25 02/15/25 05:52 05:01 Creatinine 0.65 0.66 Estimated CrCl and GFR - Last 168 Hours 02/11/25 02/12/25 02/13/25 17:22 05:53 05:35 Estim Creat Clear Calc 93.7 115.5 115.8 Estimated GFR > 60 > 60 > 60 02/14/25 02/15/25 05:52 05:01 Estim Creat Clear Calc 108.6 107.0 Estimated GFR > 60 > 60 Vancomycin Loading Dose: 2000 mg Current Vancomycin Dosing Regimen: 1250 mg Q12H Date and Time for next Vancomycin Level to be drawn: 02/17 @ 1999 Pharmacist Comments on Vancomycin Plan: Patient is receiving load dose vancomycin 2000 mg once now Patient is scheduled to start vancomycin 1250 mg Q12H starting 02/16 @ 2200. Predicted AUC 495 with a trough of 15.5 Level will be drawn prior to the 4th dose on 02/17. Pharmacy will monitor renal function daily Faith Ellis PharmD Vancomycin dosing will take advantage of [employer] as a clinical decision support tool that uses Bayesian modeling to calculate individual patient's pharmacokinetic parameters and forecast the patient's drug concentration time course with the target goal AUC 24 range of 400 - 600 mg/L/hr.
[2025-02-16 11:18] LABS: Glucose, Whole Blood 252 mg/dL (60-115)
--- NOTE | 2025-02-16 13:55 | HO.PM.IMPN ---
Subjective Subjective Date of Service: 02/16/25 Interval History: No acute issues overnight however still remains hypoxic with the exertional desaturation. Review of Systems Denies chest pain Admits shortness of breath with movement that has improved Denies nausea vomiting diarrhea Denies fever chills Physical Exam Vital Signs: Vital Signs: Last Vital Signs Temp 97.3 F 02/16/25 07:26 Pulse 67 02/16/25 11:27 Resp 18 02/16/25 11:27 BP 131/89 02/16/25 07:26 Pulse Ox 92 02/16/25 08:45 O2 Del Method Oxymask 02/16/25 08:45 O2 Flow Rate 5 02/16/25 08:45 Oxygen Flow Rate 5 02/11/25 16:33 BMI result Body Mass Index 32.7 Const: Other: Awake alert no acute distress Resp: Other: Diminished at bases with scattered expiratory wheezes and diffuse rhonchi Cardio: Other: No S4; positive S1-S2; no S3 murmurs rubs or gallops GI: Other: Soft nontender nondistended normoactive bowel sounds Extrem: Other: No edema bilaterally Objective Data Active Medications Acetaminophen (Acetaminophen 325 Mg Tablet) 975 mg PO Q6H PRN PRN Reason: Pain, Mild 1-3,fever,headache Albuterol Sulfate (Albuterol Sulfate 90 Mcg 8 Gm Inhaler) 2 puff INHALE QID PRN PRN Reason: shortness of breath or wheezing Albuterol/Ipratropium (Albuterol/Iprat 2.5/0.5mg 3 Ml Ampul.Neb) 3 ml INHALE RQ4H WHILE AWAKE [facility] Last Admin: 02/16/25 11:27 Dose: 3 ml Documented By: RACHAEL Aspirin (Aspirin Enteric Coated 81 Mg Tablet.) 81 mg PO DAILY [facility] Last Admin: 02/16/25 07:42 Dose: 81 mg Documented By: LION Benzonatate (Benzonatate 100 Mg Capsule) 100 mg PO TID PRN PRN Reason: Cough Calcium Carbonate (Calcium Carbonate 750 Mg Tab.Chew) 750 mg PO Q4H PRN PRN Reason: Heartburn Dextrose (Dextrose 50 % 25 Gm/50 Ml Syringe) 25 gm IVPUSH Q15M PRN; Protocol PRN Reason: per Hypoglycemia Standing Ord. Enoxaparin Sodium (Enoxaparin Sodium 40 Mg/0.4 Ml Syringe) 40 mg SUBCUT Q24H [facility] Last Admin: 02/15/25 20:39 Dose: Not Given Documented By: APRIL Non-Admin Reason: Patient Refused Glucose (Glucose Gel 15 Gm Gel..Gram.) 15 gm PO Q15M PRN; Protocol PRN Reason: per Hypoglycemia Standing Ord. Piperacillin Sod/Tazobactam (Sod 4.5 gm/ Sodium Chloride) 100 mls @ 200 mls/hr IV Q6H [facility] Last Infusion: 02/16/25 09:54 Dose: Infused Documented By: LION Vancomycin HCl 1,250 mg/ (Sodium Chloride) 250 mls @ 166.667 mls/hr IV Q12H [facility] Insulin Human Lispro (Insulin Lispro 100 Unit/Ml 3 Ml Vial) 0 unit SUBCUT QIDACHS [facility]; Protocol Last Admin: 02/16/25 11:44 Dose: 6 unit Documented By: LION Loratadine (Loratadine 10 Mg Tablet) 10 mg PO DAILY [facility] Last Admin: 02/16/25 07:42 Dose: 10 mg Documented By: LION Magnesium Hydroxide (Milk Of Magnesia 30 Ml Oral.Susp) 30 ml PO DAILY PRN PRN Reason: Constipation Melatonin (Melatonin 3 Mg Tablet) 6 mg PO BEDTIME PRN PRN Reason: Insomnia Methylprednisolone Sodium Succinate (Methylprednisolone Sod Succ 125 Mg/2 Ml Vial) 60 mg IVPUSH Q6H [facility] Last Admin: 02/16/25 11:45 Dose: 60 mg Documented By: LION Montelukast Sodium (Montelukast Sodium 10 Mg Tablet) 10 mg PO BEDTIME [facility] Last Admin: 02/15/25 20:08 Dose: 10 mg Documented By: APRIL Oxycodone HCl (Oxycodone Hcl Immed Release 5 Mg Tablet) 5 mg PO Q6H PRN PRN Reason: Pain, Moderate(Pain Scale 4-6) Pharmacy Consult (Consult Rx Vancomycin Dosing) 1 each MISCELLANE DAILY PRN PRN Reason: Consult order Sodium Chloride (0.9 % Sodium Chloride Flush 3 Ml Syringe) 3 ml IVFLUSH QSHIFT [facility] Last Admin: 02/16/25 07:44 Dose: 3 ml Documented By: LION Tiotropium [place] (Tiotropium [place] 2.5 Mcg 1 Puff/2.5 Mcg Mist.Inhal) 2 puff INHALE RDAILY BILL Last Admin: 02/16/25 07:59 Dose: 2 puff Documented By: RACHAEL Labs 02/15/25 05:01 02/15/25 05:01 Labs: Laboratory Results - last 24 hr 02/15/25 02/15/25 02/16/25 16:00 19:55 07:05 D-Dimer High Sensitivty POC Glucose 224 H 227 H 220 H 02/16/25 02/16/25 08:52 11:10 D-Dimer High Sensitivty 206 POC Glucose 252 H Assessment and Plan (1) Acute hypoxic respiratory failure: Status: Acute (2) Pneumonia: Status: Acute Plan Patient is a 59-year-old female with a past medical history significant for moderate COPD, CAD, type 2 diabetes (no medications), former smoker, HLD, class 1 obesity, who presented to the ED due to shortness of breath for the past few days, worsening. 1.Acute hypoxic respiratory failure with sepsis secondary to acute COPD exacerbation with bronchitis (repeat x-ray with multifocal pneumonia) - doxycycline PO (2).. Switch to ceftriaxone/azithromycin (2) , worsening. .. Vanco/Zosyn (1) -CT chest (dry) done... D-dimer negative. Results pending -Solu-Medrol 60 mg IV q.12 - DuoNebs q.4h while awake -titrate O2 to maintain sats greater than equal to 92% 2..CAD -Stable and well compensated 3.Type 2 diabetes - no current therapies diet control -lispro correctional scale -adjust as indicated class 1 obesity Full code Lovenox Patient requiring ongoing hospitalization for IV steroids to treat acute COPD exacerbation along with pulse dose steroids Quality Stroke Does the patient have a stroke diagnosis?: No VTE Prior VTE?: No VTE Risk Level:: Medical - moderate - high VTE Device Contraindication: Treatment Not Indicated VTE Drug Contraindication: N/A - Med Ordered
--- NOTE | 2025-02-16 14:05 | PC.NURSE ---
Pulm Consult OK for MD to see patient tomorrow AM.
--- NOTE | 2025-02-16 14:12 | MHC.CM.PN ---
PT NOT MEDICALLY CLEARED, PER MD NOTE, STILL REQUIRING IV STEROIDS FOR COPD TREATMENT DCP: HOME NO SERVICES VIA SHUTTLE TRANSPORT
[2025-02-16 16:24] LABS: Glucose, Whole Blood 243 mg/dL (60-115)
--- NOTE | 2025-02-16 16:25 | P.CONPL_ITS ---
History of Present Illness History of Present Illness Consult date: 02/16/25 Chief complaint: acute resp failure, sepsis, COPD Narrative: 59-year-old lady with underlying COPD, recent smoker, admitted on 02/11/2025 with dyspnea worsening with exertion. Patient did have recent 2D echocardiogram showed combined systolic and diastolic congestive heart failure. She has been treat with empiric broad-spectrum antibiotics and systemic glucocorticoids, but still continue to require supplemental oxygen at 4 L to maintain normal oximetry at rest. Of note, patient does not normally require supplemental oxygen at home. Her CT chest did not demonstrate any significant lobar consolidation. Review of Systems 2 Constitutional: Constitutional: Denies daytime sleepiness, Denies excessive sweating, Denies fatigue, Denies fever(s), Denies lethargy, Denies malaise, Denies night sweats, Denies snoring and Denies weight loss Eyes: Eyes: Denies blurry vision and Denies itchy eyes ENT: Denies nasal congestion, Denies post nasal drip, Denies sinus pain, Denies sinus pressure and Denies other ( Thrush) Cardiovascular: Cardiovascular: Denies chest pain, Denies pedal edema, Reports dyspnea, Reports dyspnea on exertion, Denies orthopnea and Denies paroxysmal nocturnal dyspnea Respiratory: Respiratory: Denies cough, Denies hemoptysis, Denies excessive phlegm production, Reports dyspnea, Reports dyspnea on exertion, Denies snoring and Denies wheezing Gastrointestinal: Gastrointestinal: Denies abdominal pain and Denies heartburn Musculoskeletal: Musculoskeletal: Denies myalgias, Denies arthralgias and Denies joint swelling Integumentary/Breasts: Skin/Breast: Denies rash Neurologic: Denies memory loss and Denies seizure-like activity Psychiatric: Psychiatric: Denies abnormal sleep pattern, Denies anxiety and Denies memory loss Endocrine: Endocrine: Denies excessive sweating, Denies fatigue and Denies heat intolerance Hematologic/Lymphatic: Hematologic/Lymphatic: Denies easy bruising Allergic/Immunologic: Allergic/Immunologic: Denies itchy eyes, Denies seasonal rhinorrhea and Denies wheezing PMFSH Past Medical History Medical History (Updated 02/16/25 @ 20:59 by Ayo Taylor MD) Diabetes type 2 Antiphospholipid antibody positive Nicotine dependence, cigarettes, uncomplicated Hyperlipidemia Foot pain, bilateral Depression Anxiety Right shoulder tendinitis Sciatica COPD (chronic obstructive pulmonary disease) Family History Family History Father Diabetes mellitus Heart problem Mother COPD (chronic obstructive pulmonary disease) Emphysema, unspecified Diabetes mellitus Surgical History Surgical History History of colonoscopy Social History Social History Household Members: None Housing: Other Housing Other:: mobile home Do you presently have visiting nurse or other home services: No Patient Tobacco Use Status: Former Tobacco user Tobacco use type: Cigarette Cigarette Packs Per Day: 1 Cigarettes Per Day: 20.0 Years Smoked: (onset 17yo, 1ppd x 39yrs, now 1/2ppd, 35+pyh) e-Cigarette/Vaping Use: Never Used service: No Current occupational status: unemployed Cognitive needs: No Hearing needs: No Vision needs: Yes Meds Allergies Allergy/AdvReac Type Severity Reaction Status Date / Time Sulfa (Sulfonamide Allergy mild Verified 02/11/25 16:47 Antibiotics) headache nicotine AdvReac Unknown vomiting Verified 02/11/25 16:47 strawberry (STRAWBERRY) AdvReac Unknown BLOODY Verified 02/11/25 16:47 STOOLS PER PATIENT SEASONAL ALLERGIES Allergy Mild DIFFICULTY Uncoded 02/11/25 16:47 BREATHING Active Medications: Current Medications Acetaminophen (Acetaminophen 325 Mg Tablet) 975 mg PO Q6H PRN PRN Reason: Pain, Mild 1-3,fever,headache Albuterol Sulfate (Albuterol Sulfate 90 Mcg 8 Gm Inhaler) 2 puff INHALE QID PRN PRN Reason: shortness of breath or wheezing Albuterol/Ipratropium (Albuterol/Iprat 2.5/0.5mg 3 Ml Ampul.Neb) 3 ml INHALE RQ4H WHILE AWAKE [facility] Last Admin: 02/16/25 15:22 Dose: 3 ml Aspirin (Aspirin Enteric Coated 81 Mg Tablet.Dr) 81 mg PO DAILY BILL Last Admin: 02/16/25 07:42 Dose: 81 mg Benzonatate (Benzonatate 100 Mg Capsule) 100 mg PO TID PRN PRN Reason: Cough Calcium Carbonate (Calcium Carbonate 750 Mg Tab.Chew) 750 mg PO Q4H PRN PRN Reason: Heartburn Dextrose (Dextrose 50 % 25 Gm/50 Ml Syringe) 25 gm IVPUSH Q15M PRN; Protocol PRN Reason: per Hypoglycemia Standing Ord. Enoxaparin Sodium (Enoxaparin Sodium 40 Mg/0.4 Ml Syringe) 40 mg SUBCUT Q24H [facility] Last Admin: 02/15/25 20:39 Dose: Not Given Glucose (Glucose Gel 15 Gm Gel..Gram.) 15 gm PO Q15M PRN; Protocol PRN Reason: per Hypoglycemia Standing Ord. Piperacillin Sod/Tazobactam (Sod 4.5 gm/ Sodium Chloride) 100 mls @ 200 mls/hr IV Q6H [facility] Last Admin: 02/16/25 15:21 Dose: 200 mls/hr Vancomycin HCl 1,250 mg/ (Sodium Chloride) 250 mls @ 166.667 mls/hr IV Q12H [facility] Insulin Human Lispro (Insulin Lispro 100 Unit/Ml 3 Ml Vial) 0 unit SUBCUT QIDACHS [facility]; Protocol Last Admin: 02/16/25 11:44 Dose: 6 unit Loratadine (Loratadine 10 Mg Tablet) 10 mg PO DAILY [facility] Last Admin: 02/16/25 07:42 Dose: 10 mg Magnesium Hydroxide (Milk Of Magnesia 30 Ml Oral.Susp) 30 ml PO DAILY PRN PRN Reason: Constipation Melatonin (Melatonin 3 Mg Tablet) 6 mg PO BEDTIME PRN PRN Reason: Insomnia Methylprednisolone Sodium Succinate (Methylprednisolone Sod Succ 125 Mg/2 Ml Vial) 60 mg IVPUSH Q6H [facility] Last Admin: 02/16/25 11:45 Dose: 60 mg Montelukast Sodium (Montelukast Sodium 10 Mg Tablet) 10 mg PO BEDTIME [facility] Last Admin: 02/15/25 20:08 Dose: 10 mg Oxycodone HCl (Oxycodone Hcl Immed Release 5 Mg Tablet) 5 mg PO Q6H PRN PRN Reason: Pain, Moderate(Pain Scale 4-6) Pharmacy Consult (Consult Rx Vancomycin Dosing) 1 each MISCELLANE DAILY PRN PRN Reason: Consult order Sodium Chloride (0.9 % Sodium Chloride Flush 3 Ml Syringe) 3 ml IVFLUSH QSHIFT [facility] Last Admin: 02/16/25 15:26 Dose: 3 ml Tiotropium Logan (Tiotropium Logan 2.5 Mcg 1 Puff/2.5 Mcg Mist.Inhal) 2 puff INHALE RDAILY [facility] Last Admin: 02/16/25 07:59 Dose: 2 puff Home Medications ?Medication ?Instructions ?Recorded ?Confirmed ?Last Taken ?Type aspirin 81 mg tablet,delayed 81 mg PO DAILY 02/11/25 0 02/11/25 02/10/25 History release loratadine 10 mg tablet (Claritin) 10 mg PO DAILY 09/0702/11/25 02/11/25 History Physical Exam 2 Vital Signs: Vital Signs: Last Vital Signs Temp 98.5 F 02/16/25 15:48 Pulse 71 02/16/25 15:48 Resp 18 02/16/25 15:48 BP 149/68 H 02/16/25 15:48 Pulse Ox 92 02/16/25 08:45 O2 Del Method Oxymask 02/16/25 08:45 O2 Flow Rate 5 02/16/25 08:45 Oxygen Flow Rate 5 02/11/25 16:33 BMI result Body Mass Index 32.7 Const: General: no acute distress and alert Nutritional Appearance: not obese Orientation/consciousness: Other orientation findings ( oriented) HEENT: Head: Yes atraumatic Eyes: General: appearance normal, both eyes and all related structures S clerae: sclerae normal EOM: EOMs intact bilaterally Neck: Neck: Yes supple Lymphatic: no lymphadenopathy noted Resp: Effort & Inspection: normal respiratory effort and no use of accessory muscles Auscultation: clear to auscultation bilaterally Cardio: Rate: regular rate Rhythm: regular rhythm Heart sounds: no gallops, no murmurs and no rubs GI: Palpation (GI): Soft to palpation and Other GI palpation findings present ( Nontender) Auscultation: normal bowel sounds Skin: General skin exam: other ( warm) Extrem: General: No clubbing, No cyanosis and No edema Results Laboratory Findings 02/15/25 05:01 02/15/25 05:01 Abnormal lab findings: Abnormal Labs 02/11/25 02/11/25 02/11/25 17:22 17:48 19:48 WBC MPV 9.3 L Immature Gran % (Auto) Neut % (Auto) Lymph % (Auto) Abs Immat Gran (auto) Absolute Neuts (auto) VBG HCO3 29 H Carbon Dioxide Anion Gap BUN 17 H POC Glucose Random Glucose 157 H Fasting Glucose Lactic Acid 2.2 H* Lactic Acid F/U @ 2Hr 2.1 H* Calcium AST 33 H Troponin I High Sens 20.2 H Total Protein 02/12/25 02/12/25 02/12/25 05:53 08:08 11:20 WBC MPV 9.1 L Immature Gran % (Auto) Neut % (Auto) Lymph % (Auto) Abs Immat Gran (auto) Absolute Neuts (auto) VBG HCO3 Carbon Dioxide Anion Gap BUN POC Glucose 147 H 180 H Random Glucose 177 H Fasting Glucose Lactic Acid Lactic Acid F/U @ 2Hr Calcium 8.3 L AST Troponin I High Sens Total Protein 02/12/25 02/12/25 02/13/25 16:18 21:06 05:35 WBC 16.3 H MPV Immature Gran % (Auto) Neut % (Auto) Lymph % (Auto) Abs Immat Gran (auto) Absolute Neuts (auto) VBG HCO3 Carbon Dioxide Anion Gap 11 L BUN 20 H POC Glucose 186 H 216 H Random Glucose 175 H Fasting Glucose Lactic Acid Lactic Acid F/U @ 2Hr Calcium AST Troponin I High Sens Total Protein 02/13/25 02/13/25 02/13/25 07:09 11:08 16:10 WBC MPV Immature Gran % (Auto) Neut % (Auto) Lymph % (Auto) Abs Immat Gran (auto) Absolute Neuts (auto) VBG HCO3 Carbon Dioxide Anion Gap BUN POC Glucose 157 H 237 H 164 H Random Glucose Fasting Glucose Lactic Acid Lactic Acid F/U @ 2Hr Calcium AST Troponin I High Sens Total Protein 02/13/25 02/14/25 02/14/25 20:13 05:52 07:39 WBC 17.0 H MPV Immature Gran % (Auto) Neut % (Auto) Lymph % (Auto) Abs Immat Gran (auto) Absolute Neuts (auto) VBG HCO3 Carbon Dioxide 30 H Anion Gap 11 L BUN 19 H POC Glucose 236 H 173 H Random Glucose 192 H Fasting Glucose Lactic Acid Lactic Acid F/U @ 2Hr Calcium AST Troponin I High Sens Total Protein 02/14/25 02/14/25 02/14/25 11:03 16:02 21:03 WBC MPV Immature Gran % (Auto) Neut % (Auto) Lymph % (Auto) Abs Immat Gran (auto) Absolute Neuts (auto) VBG HCO3 Carbon Dioxide Anion Gap BUN POC Glucose 290 H 188 H 268 H Random Glucose Fasting Glucose Lactic Acid Lactic Acid F/U @ 2Hr Calcium AST Troponin I High Sens Total Protein 02/15/25 02/15/25 02/15/25 05:01 07:23 11:14 WBC 16.3 H MPV Immature Gran % (Auto) 2.5 H Neut % (Auto) 83.6 H Lymph % (Auto) 9.9 L Abs Immat Gran (auto) 0.41 H Absolute Neuts (auto) 13.6 H VBG HCO3 Carbon Dioxide Anion Gap 11 L BUN 19 H POC Glucose 236 H 278 H Random Glucose Fasting Glucose 229 H Lactic Acid Lactic Acid F/U @ 2Hr Calcium 8.3 L AST Troponin I High Sens Total Protein 5.8 L 02/15/25 02/15/25 02/16/25 16:00 19:55 07:05 WBC MPV Immature Gran % (Auto) Neut % (Auto) Lymph % (Auto) Abs Immat Gran (auto) Absolute Neuts (auto) VBG HCO3 Carbon Dioxide Anion Gap BUN POC Glucose 224 H 227 H 220 H Random Glucose Fasting Glucose Lactic Acid Lactic Acid F/U @ 2Hr Calcium AST Troponin I High Sens Total Protein 02/16/25 02/16/25 11:10 16:19 WBC MPV Immature Gran % (Auto) Neut % (Auto) Lymph % (Auto) Abs Immat Gran (auto) Absolute Neuts (auto) VBG HCO3 Carbon Dioxide Anion Gap BUN POC Glucose 252 H 243 H Random Glucose Fasting Glucose Lactic Acid Lactic Acid F/U @ 2Hr Calcium AST Troponin I High Sens Total Protein Microbiology: Microbiology 02/11/25 17:25 Blood - Venous Blood Culture - Preliminary No growth after 48 hours. 02/11/25 17:22 Blood - Venous Blood Culture - Preliminary No growth after 48 hours. Assessment and Plan (1) Acute hypoxic respiratory failure: Status: Acute (2) COPD (chronic obstructive pulmonary disease): Status: Acute (3) Combined systolic and diastolic congestive heart failure: Status: Acute Plan Impression: 59-year-old lady with underlying COPD, obesity, and combined systolic/diastolic congestive heart admitted with acute hypoxic respiratory failure with CT chest not demonstrating any significant lobar pneumonia. Treated with empiric broad-spectrum antibiotics and systemic glucocorticoids with no significant improvement. Appears to have an acute exacerbation of underlying systolic/diastolic congestive heart failure. Recommendation: Consider discontinuation of systemic glucocorticoids and empiric broad-spectrum antibiotics. Consider empiric diuresis. Procedures Date of Service Date of Service: 02/16/25
[2025-02-16 20:30] LABS: Glucose, Whole Blood 274 mg/dL (60-115)
[2025-02-17] VITALS (12 sets, daily range): BP systolic 119–138; BP diastolic 59–63; PULSE 62–80; RESP 16–18; TEMP 36–36.9; O2SAT 88–96
[2025-02-17 07:15] LABS: Glucose, Whole Blood 220 mg/dL (60-115)
[2025-02-17 07:19] LABS: Hematocrit 42.8 % (37.0-47.0); Hemoglobin 13.9 g/dl (12.0-16.0); Mean Corpuscular HGB Conc 32.5 g/dl (31.0-35.0); Mean Corpuscular Hemoglobin 30.3 pg (27.0-33.0); Mean Corpuscular Volume 93.2 fL (80.0-98.0); NRBC Abs Auto 0.000 X10*3/uL (0.0-0.012); NRBC Pct Auto 0.0 /100WBC (0.0-0.2); Platelet Count 365 X10*3/uL (160-400); Red Blood Count 4.59 X10*6/uL (4.20-5.50); White Blood Count 18.0 X10*3/uL (4.8-10.8)
[2025-02-17 07:31] LABS: Alanine Aminotransferase 27 U/L (0-31); Albumin Level 3.3 g/dL (3.5-5.0); Alkaline Phosphatase 59 U/L (39-117); Anion Gap 11 (12-20); Aspartate Amino Transferase 15 U/L (5-31); Blood Urea Nitrogen 18 mg/dL (9-16); Calcium 8.0 mg/dL (8.4-10.2); Carbon Dioxide 28 mmol/L (22-29); Chloride 103 mmol/L (96-108); Creatinine Clr Calc Pharmacy 100.9; Estimated Glomerular Filt Rate > 60; Potassium 4.4 mmol/L (3.3-5.1); Sodium 138 mmol/L (135-145); Total Protein 5.5 g/dL (6.5-8.0)
[2025-02-17] MEDS: Aspirin Enteric Coated 81 MG TABLET.DR PO (07:31)
[2025-02-17] MEDS: 0.9 % Sodium Chloride Flush 3 ML SYRINGE IVFLUSH ×3 (07:34→21:54)
[2025-02-17] MEDS: Tiotropium Bromide 2.5 mcg 1 PUFF/2.5 MCG MIST.INHAL 2 PUFF INHALE (07:35)
[2025-02-17] MEDS: Albuterol/Iprat 2.5/0.5MG 3 ML AMPUL.NEB INHALE ×3 (07:35→15:21)
[2025-02-17 07:54] LABS: Lymphocytes Absolute Manual 1.1 X10*3/uL (1.2-4.9); Lymphocytes Percent Manual 6 % (20-40); Monocytes Absolute Manual 1.3 X10*3/uL (0.1-1.2); Monocytes Percent Manual 7 % (2-11); Myelocytes Absolute 0.2 X10*/uL; Myelocytes Percent 1 %; Neutrophils Percent Manual 86 % (45-73); RBC Morphology NORMAL
[2025-02-17 07:56] LABS: Band Neutrophils Percent 0 % (3-5); Neutrophils Absolute Manual 15.5 X10*3/uL (2.0-8.3)
--- NOTE | 2025-02-17 09:48 | P.PNIM_ITS ---
Subjective Subjective Date of Service: 02/17/25 Interval History: seen and evaluated this morning feels mild improvement no fever or chills on O2 supplement coughing with thick mucus no other events Review of Systems Review of Systems: Yes all other systems are reviewed and are negative Physical Exam 2 Vital Signs: Vital Signs: Last Vital Signs Temp 96.8 F 02/17/25 07:38 Pulse 64 02/17/25 07:39 Resp 18 02/17/25 07:39 BP 134/62 02/17/25 07:38 Pulse Ox 96 02/17/25 07:38 O2 Del Method Room Air 02/17/25 07:38 O2 Flow Rate 5 02/17/25 03:50 Oxygen Flow Rate 5 02/11/25 16:33 BMI result Body Mass Index 32.7 Const: Other: Constitutional : Awake, interactive, not in distress Neck : Normal inspection, Supple Cardiovascular : RRR, no JVP, no lower extremity edema Respiratory : fair bilateral air entry decreased at the bases with fine basal crackles, no wheezes or rhonchi Gastrointestinal: soft, lax, Normal bowel sounds, Non tender Skin : Warm, Dry Neurological : Alert & oriented x3, No focal deficit Objective Data Active Medications Acetaminophen (Acetaminophen 325 Mg Tablet) 975 mg PO Q6H PRN PRN Reason: Pain, Mild 1-3,fever,headache Last Admin: 02/17/25 00:13 Dose: 975 mg Documented By: MARITZA Comments: pt only took 650 mg po Albuterol Sulfate (Albuterol Sulfate 90 Mcg 8 Gm Inhaler) 2 puff INHALE QID PRN PRN Reason: shortness of breath or wheezing Albuterol/Ipratropium (Albuterol/Iprat 2.5/0.5mg 3 Ml Ampul.Neb) 3 ml INHALE RQ4H WHILE AWAKE [facility] Last Admin: 02/17/25 07:35 Dose: 3 ml Documented By: SAHARA Aspirin (Aspirin Enteric Coated 81 Mg Tablet.) 81 mg PO DAILY [facility] Last Admin: 02/17/25 07:31 Dose: 81 mg Documented By: BYRON Benzonatate (Benzonatate 100 Mg Capsule) 100 mg PO TID PRN PRN Reason: Cough Calcium Carbonate (Calcium Carbonate 750 Mg Tab.Chew) 750 mg PO Q4H PRN PRN Reason: Heartburn Dextrose (Dextrose 50 % 25 Gm/50 Ml Syringe) 25 gm IVPUSH Q15M PRN; Protocol PRN Reason: per Hypoglycemia Standing Ord. Enoxaparin Sodium (Enoxaparin Sodium 40 Mg/0.4 Ml Syringe) 40 mg SUBCUT Q24H [facility] Last Admin: 02/16/25 21:18 Dose: 40 mg Documented By: MARITZA Fluticasone/Vilanterol (Fluticasone/Vilanterol 200/25 Blst.W.Dev) 1 puff INHALE RDAILY [facility] Glucose (Glucose Gel 15 Gm Gel..Gram.) 15 gm PO Q15M PRN; Protocol PRN Reason: per Hypoglycemia Standing Ord. Piperacillin Sod/Tazobactam (Sod 4.5 gm/ Sodium Chloride) 100 mls @ 200 mls/hr IV Q6H [facility] Last Admin: 02/17/25 08:43 Dose: 200 mls/hr Documented By: BYRON Vancomycin HCl 1,250 mg/ (Sodium Chloride) 250 mls @ 166.667 mls/hr IV Q12H [facility] Last Infusion: 02/16/25 23:40 Dose: Infused Documented By: MARITZA Insulin Human Lispro (Insulin Lispro 100 Unit/Ml 3 Ml Vial) 0 unit SUBCUT QIDACHS [facility]; Protocol Last Admin: 02/17/25 07:31 Dose: 4 unit Documented By: BYRON Loratadine (Loratadine 10 Mg Tablet) 10 mg PO DAILY [facility] Last Admin: 02/17/25 07:31 Dose: 10 mg Documented By: BYRON Magnesium Hydroxide (Milk Of Magnesia 30 Ml Oral.Susp) 30 ml PO DAILY PRN PRN Reason: Constipation Melatonin (Melatonin 3 Mg Tablet) 6 mg PO BEDTIME PRN PRN Reason: Insomnia Methylprednisolone Sodium Succinate (Methylprednisolone Sod Succ 125 Mg/2 Ml Vial) 60 mg IVPUSH Q6H [facility] Last Admin: 02/17/25 05:53 Dose: 60 mg Documented By: MARITZA Montelukast Sodium (Montelukast Sodium 10 Mg Tablet) 10 mg PO BEDTIME [facility] Last Admin: 02/16/25 21:19 Dose: 10 mg Documented By: MARITZA Oxycodone HCl (Oxycodone Hcl Immed Release 5 Mg Tablet) 5 mg PO Q6H PRN PRN Reason: Pain, Moderate(Pain Scale 4-6) Pharmacy Consult (Consult Rx Vancomycin Dosing) 1 each MISCELLANE DAILY PRN PRN Reason: Consult order Sodium Chloride (0.9 % Sodium Chloride Flush 3 Ml Syringe) 3 ml IVFLUSH QSHIFT [facility] Last Admin: 02/17/25 07:34 Dose: 3 ml Documented By: BYRON Tiotropium [place] (Tiotropium [place] 2.5 Mcg 1 Puff/2.5 Mcg Mist.Inhal) 2 puff INHALE RDAILY [facility] Last Admin: 02/17/25 07:35 Dose: 2 puff Documented By: SCOVILH Labs 02/17/25 07:03 02/17/25 07:03 Labs: Laboratory Results - last 24 hr 02/16/25 02/16/25 02/16/25 11:10 16:19 20:26 MCV MCH MCHC RDW Plt Count MPV Immature Gran % (Auto) Neut % (Auto) Lymph % (Auto) [place] % (Auto) Eos % (Auto) Baso % (Auto) Lymph # (Auto) [place] # (Auto) Eos # (Auto) Baso # (Auto) Abs Immat Gran (auto) Absolute Neuts (auto) Absolute Nucleated RBC Nucleated RBC % (auto) Neutrophils % (Manual) Band Neutrophils % Lymphocytes % (Manual) Monocytes % (Manual) Myelocytes % Abs Neuts (Manual) Lymphocytes # (Manual) Monocytes # (Manual) Myelocytes # Platelet Estimate Plt Morphology Comment RBC Morphology Anion Gap Estim Creat Clear Calc Estimated GFR POC Glucose 252 H 243 H 274 H Fasting Glucose Calcium Total Bilirubin AST ALT Alkaline Phosphatase Total Protein Albumin 02/17/25 02/17/25 07:03 07:10 MCV 93.2 MCH 30.3 MCHC 32.5 RDW 13.2 Plt Count 365 MPV 8.9 L Immature Gran % (Auto) Cancelled Neut % (Auto) Cancelled Lymph % (Auto) Cancelled [place] % (Auto) Cancelled Eos % (Auto) Cancelled Baso % (Auto) Cancelled Lymph # (Auto) Cancelled [place] # (Auto) Cancelled Eos # (Auto) Cancelled Baso # (Auto) Cancelled Abs Immat Gran (auto) Cancelled Absolute Neuts (auto) Cancelled Absolute Nucleated RBC 0.000 Nucleated RBC % (auto) 0.0 Neutrophils % (Manual) 86 H Band Neutrophils % 0 L Lymphocytes % (Manual) 6 L Monocytes % (Manual) 7 Myelocytes % 1 Abs Neuts (Manual) 15.5 H Lymphocytes # (Manual) 1.1 L Monocytes # (Manual) 1.3 H Myelocytes # 0.2 Platelet Estimate NORMAL Plt Morphology Comment NORMAL RBC Morphology NORMAL Anion Gap 11 L Estim Creat Clear Calc 100.9 Estimated GFR > 60 POC Glucose 220 H Fasting Glucose 225 H Calcium 8.0 L Total Bilirubin 0.5 AST 15 ALT 27 Alkaline Phosphatase 59 Total Protein 5.5 L Albumin 3.3 L Microbiology Microbiology Results: Microbiology 02/11/25 17:25 Blood Culture - Final Blood - Venous No growth after 5 days. 02/11/25 17:22 Blood Culture - Final Blood - Venous No growth after 5 days. Assessment and Plan (1) Combined systolic and diastolic congestive heart failure: Status: Acute (2) Pneumonia: Status: Acute (3) COPD exacerbation: Status: Acute (4) Acute hypoxic respiratory failure: Status: Acute Plan Patient is a 59-year-old female with a past medical history significant for moderate COPD, CAD, type 2 diabetes (no medications), former smoker, HLD, class 1 obesity, who presented to the ED due to shortness of breath for the past few days, worsening. Acute hypoxic respiratory failure with sepsis secondary to acute COPD exacerbation with bronchitis and pneumonia mild improvement today CT chest showing atelactasis and nodules with no clear infiltrates decreased Solu-Medrol to 40 mg IV q.12, wean down Antibiotics switched on 7\6 to broad spectrum. DC Vanco, keep on Zosyn Give IV Lasix based on Pulm rec DuoNebs q.4h while awake titrate O2 to maintain sats greater than equal to 92% Pulm input appreciated CAD Stable and well compensated Acute on chronic systolic CHF with mild exacerbation Increase lung markings in chest images Echo showing decreased EF to 45% Lasix IV monitor I\O Type 2 diabetes with hyperglycemia likely 2/2 Steroids no current therapies diet control lispro correctional scale adjust as indicated class 1 obesity Full code Lovenox Patient requiring ongoing hospitalization for IV steroids, antibiotics, O2 supplement to treat acute COPD exacerbation along with pulse dose steroids Quality Stroke Does the patient have a stroke diagnosis?: No VTE Prior VTE?: No VTE Risk Level:: Medical - moderate - high VTE Device Contraindication: Treatment Not Indicated VTE Drug Contraindication: N/A - Med Ordered
[2025-02-17] MEDS: guaiFENesin LA 600 MG TAB.ER.12H PO ×2 (10:16→21:54)
[2025-02-17] MEDS: Furosemide 20 MG/2 ML VIAL IVPUSH (10:24)
[2025-02-17 11:24] LABS: Glucose, Whole Blood 246 mg/dL (60-115)
--- NOTE | 2025-02-17 15:13 | MHC.CM.PN ---
EMR REVIEWED AND PER MD ROUNDS, PT IS NOT YET MEDICALLY CLEARED FOR DC HOME (CONTINUES TO REQUIRE 02, MONITORING 02 SATS) CM WILL CONTINUE TO FOLLOW FOR ANY CHANGE TO DC PLAN.
[2025-02-17 16:49] LABS: Glucose, Whole Blood 304 mg/dL (60-115)
[2025-02-17 20:51] LABS: Glucose, Whole Blood 188 mg/dL (60-115)
[2025-02-18] VITALS (9 sets, daily range): BP systolic 122–134; BP diastolic 58–63; PULSE 64–71; RESP 15–18; TEMP 36.3–36.6; O2SAT 90–94
[2025-02-18 06:22] LABS: Hematocrit 43.7 % (37.0-47.0); Hemoglobin 14.1 g/dl (12.0-16.0); Mean Corpuscular HGB Conc 32.3 g/dl (31.0-35.0); Mean Corpuscular Hemoglobin 30.1 pg (27.0-33.0); Mean Corpuscular Volume 93.2 fL (80.0-98.0); NRBC Abs Auto 0.000 X10*3/uL (0.0-0.012); NRBC Pct Auto 0.0 /100WBC (0.0-0.2); Platelet Count 383 X10*3/uL (160-400); Red Blood Count 4.69 X10*6/uL (4.20-5.50); White Blood Count 14.2 X10*3/uL (4.8-10.8)
[2025-02-18 06:40] LABS: Alanine Aminotransferase 24 U/L (0-31); Albumin Level 3.1 g/dL (3.5-5.0); Alkaline Phosphatase 52 U/L (39-117); Anion Gap 12 (12-20); Aspartate Amino Transferase 17 U/L (5-31); Blood Urea Nitrogen 18 mg/dL (9-16); Calcium 8.0 mg/dL (8.4-10.2); Carbon Dioxide 30 mmol/L (22-29); Chloride 102 mmol/L (96-108); Creatinine Clr Calc Pharmacy 95.5; Estimated Glomerular Filt Rate > 60; Potassium 4.4 mmol/L (3.3-5.1); Sodium 140 mmol/L (135-145); Total Protein 5.1 g/dL (6.5-8.0)
[2025-02-18 07:01] LABS: Band Neutrophils Percent 1 % (3-5); Lymphocytes Absolute Manual 1.7 X10*3/uL (1.2-4.9); Lymphocytes Percent Manual 12 % (20-40); Metamyelocytes Absolute 0.3 X10*3/uL; Metamyelocytes Percent 2 %; Monocytes Absolute Manual 1.3 X10*3/uL (0.1-1.2); Monocytes Percent Manual 9 % (2-11); Neutrophils Absolute Manual 10.9 X10*3/uL (2.0-8.3); Neutrophils Percent Manual 76 % (45-73)
[2025-02-18 07:02] LABS: RBC Morphology NORMAL
[2025-02-18 07:39] LABS: Glucose, Whole Blood 181 mg/dL (60-115)
[2025-02-18] MEDS: Tiotropium Bromide 2.5 mcg 1 PUFF/2.5 MCG MIST.INHAL 2 PUFF INHALE (07:41)
[2025-02-18] MEDS: Fluticasone/Vilanterol 200/25 BLST.W.DEV 1 PUFF INHALE (07:42)
[2025-02-18] MEDS: Albuterol/Iprat 2.5/0.5MG 3 ML AMPUL.NEB INHALE ×4 (07:45→19:34)
[2025-02-18] MEDS: Aspirin Enteric Coated 81 MG TABLET.DR PO (08:01)
[2025-02-18] MEDS: guaiFENesin LA 600 MG TAB.ER.12H PO ×2 (08:02→20:55)
[2025-02-18] MEDS: 0.9 % Sodium Chloride Flush 3 ML SYRINGE IVFLUSH ×3 (08:03→20:59)
[2025-02-18] MEDS: Furosemide 20 MG/2 ML VIAL IVPUSH (08:03)
[2025-02-18 11:10] LABS: Glucose, Whole Blood 123 mg/dL (60-115)
[2025-02-18 16:13] LABS: Glucose, Whole Blood 210 mg/dL (60-115)
--- NOTE | 2025-02-18 18:02 | P.PNIM_ITS ---
Subjective Subjective Date of Service: 02/18/25 Interval History: acute hypoxemic respiratory failure Review of Systems Says some improvement in symptoms. Physical Exam 2 Vital Signs: Vital Signs: Last Vital Signs Temp 97.6 F 02/18/25 15:37 Pulse 70 02/18/25 15:37 Resp 15 02/18/25 15:37 BP 128/63 02/18/25 15:37 Pulse Ox 91 L 02/18/25 15:37 O2 Del Method Room Air 02/18/25 15:37 O2 Flow Rate 2 02/18/25 12:00 Oxygen Flow Rate 5 02/11/25 16:33 BMI result Body Mass Index 32.7 general : Awake, interactive, not in distress Cardiovascular : RRR, s1s2 heard. Respiratory : fair bilateral air entry decreased at the bases with fine basal crackles, no wheezes or rhonchi Gastrointestinal: soft, nd, Normal bowel sounds, Non tender Skin : Warm, Dry Neurological : Alert & oriented x3, No focal deficit Objective Data Active Medications Acetaminophen (Acetaminophen 325 Mg Tablet) 975 mg PO Q6H PRN PRN Reason: Pain, Mild 1-3,fever,headache Last Admin: 02/17/25 00:13 Dose: 975 mg Documented By: MARITZA Comments: pt only took 650 mg po Albuterol Sulfate (Albuterol Sulfate 90 Mcg 8 Gm Inhaler) 2 puff INHALE QID PRN PRN Reason: shortness of breath or wheezing Albuterol/Ipratropium (Albuterol/Iprat 2.5/0.5mg 3 Ml Ampul.Neb) 3 ml INHALE RQ4H WHILE AWAKE [facility] Last Admin: 02/18/25 15:27 Dose: 3 ml Documented By: HASEEB Aspirin (Aspirin Enteric Coated 81 Mg Tablet.) 81 mg PO DAILY [facility] Last Admin: 02/18/25 08:01 Dose: 81 mg Documented By: BYRON Benzonatate (Benzonatate 100 Mg Capsule) 100 mg PO TID PRN PRN Reason: Cough Calcium Carbonate (Calcium Carbonate 750 Mg Tab.Chew) 750 mg PO Q4H PRN PRN Reason: Heartburn Dextrose (Dextrose 50 % 25 Gm/50 Ml Syringe) 25 gm IVPUSH Q15M PRN; Protocol PRN Reason: per Hypoglycemia Standing Ord. Enoxaparin Sodium (Enoxaparin Sodium 40 Mg/0.4 Ml Syringe) 40 mg SUBCUT Q24H [facility] Last Admin: 02/17/25 22:01 Dose: Not Given Documented By: BONG Non-Admin Reason: Patient Refused Fluticasone/Vilanterol (Fluticasone/Vilanterol 200/25 Blst.W.Dev) 1 puff INHALE RDAILY [facility] Last Admin: 02/18/25 07:42 Dose: 1 puff Documented By: HASEEB Furosemide (Furosemide 20 Mg/2 Ml Vial) 20 mg IVPUSH DAILY [facility]; Protocol Last Admin: 02/18/25 08:03 Dose: 20 mg Documented By: BYRON Glucose (Glucose Gel 15 Gm Gel..Gram.) 15 gm PO Q15M PRN; Protocol PRN Reason: per Hypoglycemia Standing Ord. Guaifenesin (Guaifenesin La 600 Mg Tab.Er.12h) 600 mg PO BID [facility] Last Admin: 02/18/25 08:02 Dose: 600 mg Documented By: BYRON Piperacillin Sod/Tazobactam (Sod 4.5 gm/ Sodium Chloride) 100 mls @ 200 mls/hr IV Q6H [facility] Last Infusion: 02/18/25 16:00 Dose: Infused Documented By: BYRON Insulin Human Lispro (Insulin Lispro 100 Unit/Ml 3 Ml Vial) 0 unit SUBCUT QIDACHS [facility]; Protocol Last Admin: 02/18/25 16:24 Dose: 4 unit Documented By: BYRON Loratadine (Loratadine 10 Mg Tablet) 10 mg PO DAILY [facility] Last Admin: 02/18/25 08:01 Dose: 10 mg Documented By: BYRON Magnesium Hydroxide (Milk Of Magnesia 30 Ml Oral.Susp) 30 ml PO DAILY PRN PRN Reason: Constipation Melatonin (Melatonin 3 Mg Tablet) 6 mg PO BEDTIME PRN PRN Reason: Insomnia Methylprednisolone Sodium Succinate (Methylprednisolone Sod Succ 40 Mg Vial) 40 mg IVPUSH Q12H [facility] Last Admin: 02/18/25 09:28 Dose: 40 mg Documented By: JOSSUE Montelukast Sodium (Montelukast Sodium 10 Mg Tablet) 10 mg PO BEDTIME [facility] Last Admin: 02/17/25 21:54 Dose: 10 mg Documented By: HO.SUZUKH Oxycodone HCl (Oxycodone Hcl Immed Release 5 Mg Tablet) 5 mg PO Q6H PRN PRN Reason: Pain, Moderate(Pain Scale 4-6) Sodium Chloride (0.9 % Sodium Chloride Flush 3 Ml Syringe) 3 ml IVFLUSH QSHIFT [facility] Last Admin: 02/18/25 15:19 Dose: 3 ml Documented By: BYRON Tiotropium [place] (Tiotropium [place] 2.5 Mcg 1 Puff/2.5 Mcg Mist.Inhal) 2 puff INHALE RDAILY [facility] Last Admin: 02/18/25 07:41 Dose: 2 puff Documented By: HASEEB Labs 02/18/25 05:26 02/18/25 05:26 Labs: Laboratory Results - last 24 hr 02/17/25 02/18/25 02/18/25 20:46 05:26 07:27 MCV 93.2 MCH 30.1 MCHC 32.3 RDW 13.2 Plt Count 383 MPV 9.0 L Immature Gran % (Auto) Cancelled Neut % (Auto) Cancelled Lymph % (Auto) Cancelled [place] % (Auto) Cancelled Eos % (Auto) Cancelled Baso % (Auto) Cancelled Lymph # (Auto) Cancelled [place] # (Auto) Cancelled Eos # (Auto) Cancelled Baso # (Auto) Cancelled Abs Immat Gran (auto) Cancelled Absolute Neuts (auto) Cancelled Absolute Nucleated RBC 0.000 Nucleated RBC % (auto) 0.0 Neutrophils % (Manual) 76 H Band Neutrophils % 1 L Lymphocytes % (Manual) 12 L Monocytes % (Manual) 9 Metamyelocytes % 2 Abs Neuts (Manual) 10.9 H Lymphocytes # (Manual) 1.7 Monocytes # (Manual) 1.3 H Metamyelocytes # 0.3 Platelet Estimate NORMAL Plt Morphology Comment NORMAL RBC Morphology NORMAL Anion Gap 12 Estim Creat Clear Calc 95.5 Estimated GFR > 60 POC Glucose 188 H 181 H Fasting Glucose 199 H Calcium 8.0 L Total Bilirubin 0.6 AST 17 ALT 24 Alkaline Phosphatase 52 Total Protein 5.1 L Albumin 3.1 L 02/18/25 02/18/25 11:02 16:05 MCV MCH MCHC RDW Plt Count MPV Immature Gran % (Auto) Neut % (Auto) Lymph % (Auto) [place] % (Auto) Eos % (Auto) Baso % (Auto) Lymph # (Auto) [place] # (Auto) Eos # (Auto) Baso # (Auto) Abs Immat Gran (auto) Absolute Neuts (auto) Absolute Nucleated RBC Nucleated RBC % (auto) Neutrophils % (Manual) Band Neutrophils % Lymphocytes % (Manual) Monocytes % (Manual) Metamyelocytes % Abs Neuts (Manual) Lymphocytes # (Manual) Monocytes # (Manual) Metamyelocytes # Platelet Estimate Plt Morphology Comment RBC Morphology Anion Gap Estim Creat Clear Calc Estimated GFR POC Glucose 123 H 210 H Fasting Glucose Calcium Total Bilirubin AST ALT Alkaline Phosphatase Total Protein Albumin Assessment and Plan (1) COPD (chronic obstructive pulmonary disease): Status: Acute Assessment and Plan: 59-year-old female with a past medical history significant for moderate COPD, CAD, type 2 diabetes (no medications), former smoker, HLD, class 1 obesity, who presented to the ED due to shortness of breath for the past few days, worsening. Acute hypoxic respiratory failure with sepsis secondary to acute COPD exacerbation with bronchitis and pneumonia mild improvement today CT chest showing atelactasis and nodules with no clear infiltrates decreased Solu-Medrol to 40 mg IV q.12, wean down Antibiotics switched on 7\6 to broad spectrum. DC Vanco, keep on Zosyn Give IV Lasix based on Pulm rec DuoNebs q.4h while awake titrate O2 to maintain sats greater than equal to 92% Pulm input appreciated CAD Stable and well compensated Acute on chronic systolic CHF with mild exacerbation Increase lung markings in chest images Echo showing decreased EF to 45% Lasix IV monitor I\O Type 2 diabetes with hyperglycemia likely 2/2 Steroids no current therapies diet control lispro correctional scale adjust as indicated class 1 obesity Full code Lovenox Patient requiring ongoing hospitalization for IV steroids, antibiotics, O2 supplement to treat acute COPD exacerbation along with pulse dose steroids Quality Stroke Does the patient have a stroke diagnosis?: No VTE Prior VTE?: No VTE Risk Level:: Medical - moderate - high VTE Device Contraindication: Treatment Not Indicated VTE Drug Contraindication: N/A - Med Ordered
[2025-02-18 20:32] LABS: Glucose, Whole Blood 182 mg/dL (60-115)
[2025-02-19] VITALS (15 sets, daily range): BP systolic 116–136; BP diastolic 57–63; PULSE 60–76; RESP 16–22; TEMP 36–37.1; O2SAT 84–96
[2025-02-19 05:53] LABS: MANUAL DIFF FLAG NO
[2025-02-19 05:56] LABS: Hematocrit 42.6 % (37.0-47.0); Hemoglobin 14.2 g/dl (12.0-16.0); Imm Gran Abs Auto 0.62 X10*3/uL (0.00-0.03); Imm Gran Pct Auto 4.9 % (0.0-0.4); Lymphocytes Absolute Auto 1.7 X10*3/uL (1.2-4.9); Mean Corpuscular HGB Conc 33.3 g/dl (31.0-35.0); Mean Corpuscular Hemoglobin 30.6 pg (27.0-33.0); Mean Corpuscular Volume 91.8 fL (80.0-98.0); NRBC Abs Auto 0.000 X10*3/uL (0.0-0.012); NRBC Pct Auto 0.0 /100WBC (0.0-0.2); Platelet Count 371 X10*3/uL (160-400); Red Blood Count 4.64 X10*6/uL (4.20-5.50); White Blood Count 12.8 X10*3/uL (4.8-10.8)
[2025-02-19 06:11] LABS: Alanine Aminotransferase 25 U/L (0-31); Albumin Level 3.2 g/dL (3.5-5.0); Alkaline Phosphatase 57 U/L (39-117); Anion Gap 11 (12-20); Aspartate Amino Transferase 14 U/L (5-31); Blood Urea Nitrogen 23 mg/dL (9-16); Calcium 7.7 mg/dL (8.4-10.2); Carbon Dioxide 28 mmol/L (22-29); Chloride 104 mmol/L (96-108); Creatinine Clr Calc Pharmacy 96.7; Estimated Glomerular Filt Rate > 60; Potassium 4.5 mmol/L (3.3-5.1); Sodium 138 mmol/L (135-145); Total Protein 5.4 g/dL (6.5-8.0)
[2025-02-19 07:33] LABS: Glucose, Whole Blood 163 mg/dL (60-115)
[2025-02-19] MEDS: Aspirin Enteric Coated 81 MG TABLET.DR PO (07:41)
[2025-02-19] MEDS: Furosemide 20 MG/2 ML VIAL IVPUSH (07:42)
[2025-02-19] MEDS: 0.9 % Sodium Chloride Flush 3 ML SYRINGE IVFLUSH ×2 (07:42→16:07)
[2025-02-19] MEDS: Fluticasone/Vilanterol 200/25 BLST.W.DEV 1 PUFF INHALE (07:50)
[2025-02-19] MEDS: Tiotropium Bromide 2.5 mcg 1 PUFF/2.5 MCG MIST.INHAL 2 PUFF INHALE (07:50)
[2025-02-19] MEDS: Albuterol/Iprat 2.5/0.5MG 3 ML AMPUL.NEB INHALE ×4 (07:50→19:36)
[2025-02-19] MEDS: guaiFENesin LA 600 MG TAB.ER.12H PO ×2 (10:19→22:10)
--- NOTE | 2025-02-19 10:24 | MHC.CM.PN ---
PER PHYSICIAN ROUNDS, NO PLAN FOR DC TODAY. PLAN IS FOR 1-2 ADDITIONAL DAYS AND DC WITH PULOMONARY FOLLOW-UP
[2025-02-19 11:41] LABS: Glucose, Whole Blood 147 mg/dL (60-115)
--- NOTE | 2025-02-19 12:19 | HO.PM.IMPN ---
Subjective Subjective Date of Service: 02/19/25 Interval History: chf Review of Systems sob somewhat improving no chest pain or cough Review of Systems: Yes all other systems are reviewed and are negative Physical Exam Vital Signs: Vital Signs: Last Vital Signs Temp 97.1 F 02/19/25 11:50 Pulse 76 02/19/25 11:50 Resp 16 02/19/25 11:50 BP 128/58 L 02/19/25 11:50 Pulse Ox 90 L 02/19/25 11:50 O2 Del Method Room Air 02/19/25 11:50 O2 Flow Rate 2 02/19/25 07:14 Oxygen Flow Rate 5 02/11/25 16:33 BMI result Body Mass Index 32.7 general : Awake, interactive, not in distress Cardiovascular : RRR, s1s2 heard. Respiratory : fair bilateral air entry decreased at the bases with fine basal crackles, no wheezes or rhonchi Gastrointestinal: soft, nd, Normal bowel sounds, Non tender Skin : Warm, Dry Neurological : Alert & oriented x3, No focal deficit Objective Data Active Medications Acetaminophen (Acetaminophen 325 Mg Tablet) 975 mg PO Q6H PRN PRN Reason: Pain, Mild 1-3,fever,headache Last Admin: 02/17/25 00:13 Dose: 975 mg Documented By: MARITZA Comments: pt only took 650 mg po Albuterol Sulfate (Albuterol Sulfate 90 Mcg 8 Gm Inhaler) 2 puff INHALE QID PRN PRN Reason: shortness of breath or wheezing Albuterol/Ipratropium (Albuterol/Iprat 2.5/0.5mg 3 Ml Ampul.Neb) 3 ml INHALE RQ4H WHILE AWAKE [facility] Last Admin: 02/19/25 11:15 Dose: 3 ml Documented By: HASEEB Amoxicillin/Clavulanate Potassium (Amoxicillin/Potassium Clav 875 Mg Tablet) 875 mg PO Q12H [facility] Last Admin: 02/19/25 07:40 Dose: 875 mg Documented By: ALLISON Aspirin (Aspirin Enteric Coated 81 Mg Tablet.) 81 mg PO DAILY [facility] Last Admin: 02/19/25 07:41 Dose: 81 mg Documented By: ALLISON Benzonatate (Benzonatate 100 Mg Capsule) 100 mg PO TID PRN PRN Reason: Cough Calcium Carbonate (Calcium Carbonate 750 Mg Tab.Chew) 750 mg PO Q4H PRN PRN Reason: Heartburn Dextrose (Dextrose 50 % 25 Gm/50 Ml Syringe) 25 gm IVPUSH Q15M PRN; Protocol PRN Reason: per Hypoglycemia Standing Ord. Enoxaparin Sodium (Enoxaparin Sodium 40 Mg/0.4 Ml Syringe) 40 mg SUBCUT Q24H [facility] Last Admin: 02/18/25 21:03 Dose: Not Given Documented By: BONG Non-Admin Reason: Patient Refused Fluticasone/Vilanterol (Fluticasone/Vilanterol 200/25 Blst.W.Dev) 1 puff INHALE RDAILY [facility] Last Admin: 02/19/25 07:50 Dose: 1 puff Documented By: RALPH Furosemide (Furosemide 20 Mg/2 Ml Vial) 20 mg IVPUSH DAILY [facility]; Protocol Last Admin: 02/19/25 07:42 Dose: 20 mg Documented By: ALLSION Glucose (Glucose Gel 15 Gm Gel..Gram.) 15 gm PO Q15M PRN; Protocol PRN Reason: per Hypoglycemia Standing Ord. Guaifenesin (Guaifenesin La 600 Mg Tab.Er.12h) 600 mg PO BID [facility] Last Admin: 02/19/25 10:19 Dose: 600 mg Documented By: ALLISON Insulin Human Lispro (Insulin Lispro 100 Unit/Ml 3 Ml Vial) 0 unit SUBCUT QIDACHS [facility]; Protocol Last Admin: 02/19/25 11:43 Dose: Not Given Documented By: ALLISON Non-Admin Reason: No Insulin Coverage Loratadine (Loratadine 10 Mg Tablet) 10 mg PO DAILY [facility] Last Admin: 02/19/25 07:41 Dose: 10 mg Documented By: ALLISON Magnesium Hydroxide (Milk Of Magnesia 30 Ml Oral.Susp) 30 ml PO DAILY PRN PRN Reason: Constipation Melatonin (Melatonin 3 Mg Tablet) 6 mg PO BEDTIME PRN PRN Reason: Insomnia Montelukast Sodium (Montelukast Sodium 10 Mg Tablet) 10 mg PO BEDTIME [facility] Last Admin: 02/18/25 20:55 Dose: 10 mg Documented By: BONG Oxycodone HCl (Oxycodone Hcl Immed Release 5 Mg Tablet) 5 mg PO Q6H PRN PRN Reason: Pain, Moderate(Pain Scale 4-6) Prednisone (Prednisone 20 Mg Tablet) 40 mg PO DAILY [facility] Last Admin: 02/19/25 07:40 Dose: 40 mg Documented By: ALLISON Sodium Chloride (0.9 % Sodium Chloride Flush 3 Ml Syringe) 3 ml IVFLUSH QSHIFT [facility] Last Admin: 02/19/25 07:42 Dose: 3 ml Documented By: ALLISON Tiotropium [place] (Tiotropium [place] 2.5 Mcg 1 Puff/2.5 Mcg Mist.Inhal) 2 puff INHALE RDAILY [facility] Last Admin: 02/19/25 07:50 Dose: 2 puff Documented By: RALPH Labs 02/19/25 05:31 02/19/25 05:31 Labs: Laboratory Results - last 24 hr 02/18/25 02/18/25 02/19/25 16:05 20:17 05:31 MCV 91.8 MCH 30.6 MCHC 33.3 RDW 13.3 Plt Count 371 MPV 8.6 L Immature Gran % (Auto) 4.9 H Neut % (Auto) 73.2 H Lymph % (Auto) 13.5 L [place] % (Auto) 8.1 Eos % (Auto) 0.1 Baso % (Auto) 0.2 Lymph # (Auto) 1.7 [place] # (Auto) 1.0 Eos # (Auto) 0.0 Baso # (Auto) 0.0 Abs Immat Gran (auto) 0.62 H Absolute Neuts (auto) 9.4 H Absolute Nucleated RBC 0.000 Nucleated RBC % (auto) 0.0 Anion Gap 11 L Estim Creat Clear Calc 96.7 Estimated GFR > 60 POC Glucose 210 H 182 H Fasting Glucose 236 H Calcium 7.7 L Total Bilirubin 0.6 AST 14 ALT 25 Alkaline Phosphatase 57 Total Protein 5.4 L Albumin 3.2 L 02/19/25 02/19/25 07:16 11:24 MCV MCH MCHC RDW Plt Count MPV Immature Gran % (Auto) Neut % (Auto) Lymph % (Auto) [place] % (Auto) Eos % (Auto) Baso % (Auto) Lymph # (Auto) [place] # (Auto) Eos # (Auto) Baso # (Auto) Abs Immat Gran (auto) Absolute Neuts (auto) Absolute Nucleated RBC Nucleated RBC % (auto) Anion Gap Estim Creat Clear Calc Estimated GFR POC Glucose 163 H 147 H Fasting Glucose Calcium Total Bilirubin AST ALT Alkaline Phosphatase Total Protein Albumin Assessment and Plan (1) COPD (chronic obstructive pulmonary disease): Status: Acute Assessment and Plan: 59-year-old female with a past medical history significant for moderate COPD, CAD, type 2 diabetes (no medications), former smoker, HLD, class 1 obesity, who presented to the ED due to shortness of breath for the past few days, worsening. Acute hypoxic respiratory failure with sepsis secondary to acute COPD exacerbation with bronchitis and pneumonia mild improvement today CT chest showing atelactasis and nodules with no clear infiltrates decreased Solu-Medrol to 40 mg IV q.12, wean down Antibiotics switched on 7\6 to broad spectrum. DC Vanco, keep on Zosyn Give IV Lasix based on Pulm rec DuoNebs q.4h while awake titrate O2 to maintain sats greater than equal to 92% Pulm input appreciated CAD Stable and well compensated Acute on chronic systolic CHF with mild exacerbation Increase lung markings in chest images Echo showing decreased EF to 45% Lasix IV monitor I\O Type 2 diabetes with hyperglycemia likely 2/2 Steroids no current therapies diet control lispro correctional scale adjust as indicated class 1 obesity Full code Lovenox Patient requiring ongoing hospitalization for IV steroids, antibiotics, O2 supplement to treat acute COPD exacerbation along with pulse dose steroids Quality Stroke Does the patient have a stroke diagnosis?: No VTE Prior VTE?: No VTE Risk Level:: Medical - moderate - high VTE Device Contraindication: Treatment Not Indicated VTE Drug Contraindication: N/A - Med Ordered
[2025-02-19 16:41] LABS: Glucose, Whole Blood 222 mg/dL (60-115)
[2025-02-19 20:50] LABS: Glucose, Whole Blood 169 mg/dL (60-115)
[2025-02-20] VITALS (7 sets, daily range): BP systolic 117–146; BP diastolic 61–68; PULSE 65–88; RESP 14–18; TEMP 36.1–36.7; O2SAT 89–94
[2025-02-20 06:38] LABS: Creatinine Clr Calc Pharmacy 96.7; Estimated Glomerular Filt Rate > 60
[2025-02-20 07:42] LABS: Glucose, Whole Blood 98 mg/dL (60-115)
[2025-02-20] MEDS: Albuterol/Iprat 2.5/0.5MG 3 ML AMPUL.NEB INHALE ×3 (08:10→14:59)
[2025-02-20] MEDS: Tiotropium Bromide 2.5 mcg 1 PUFF/2.5 MCG MIST.INHAL 2 PUFF INHALE (08:11)
[2025-02-20] MEDS: Fluticasone/Vilanterol 200/25 BLST.W.DEV 1 PUFF INHALE (08:11)
[2025-02-20] MEDS: Furosemide 20 MG/2 ML VIAL IVPUSH (09:26)
[2025-02-20] MEDS: guaiFENesin LA 600 MG TAB.ER.12H PO (09:26)
[2025-02-20] MEDS: Aspirin Enteric Coated 81 MG TABLET.DR PO (09:26)
[2025-02-20] MEDS: 0.9 % Sodium Chloride Flush 3 ML SYRINGE IVFLUSH (09:31)
[2025-02-20 09:41] LABS: Hematocrit 43.7 % (37.0-47.0); Hemoglobin 14.6 g/dl (12.0-16.0); Mean Corpuscular HGB Conc 33.4 g/dl (31.0-35.0); Mean Corpuscular Hemoglobin 31.3 pg (27.0-33.0); Mean Corpuscular Volume 93.6 fL (80.0-98.0); NRBC Abs Auto 0.000 X10*3/uL (0.0-0.012); NRBC Pct Auto 0.0 /100WBC (0.0-0.2); Platelet Count 349 X10*3/uL (160-400); Red Blood Count 4.67 X10*6/uL (4.20-5.50); White Blood Count 13.8 X10*3/uL (4.8-10.8)
[2025-02-20 11:55] LABS: Glucose, Whole Blood 143 mg/dL (60-115)
[2025-02-20 14:15] LABS: E. coli EAEC Not Detected (Not Detect.); E. coli EPEC Not Detected (Not Detect.); E. coli ETEC Not Detected (Not Detect.); E. coli STEC Not Detected (Not Detect.); Shigella sp./EIEC Not Detected (Not Detect.)
--- NOTE | 2025-02-20 14:50 | PM.DS ---
DS: Providers Provider Date of Service: 02/20/25 Date of admission: 02/11/25 20:21 Date of discharge: 02/20/25 Primary care physician: Brittanie Esteves MD Consults: 02/16/25 14:02 Consult to Pulmonology Routine Consulting Provider: [facility] Pulmonology [facility] Reason for consultation: worsening SOB Has provider been notified: No DS: Diagnosis Discharge Diagnosis (1) COPD (chronic obstructive pulmonary disease): Status: Acute DS: Summary Hospital Course Hospital Course: HPI: 59-year-old female with a past medical history significant for moderate COPD, CAD, type 2 diabetes (no medications), former smoker, HLD, class 1 obesity, who presented to the ED due to shortness of breath for the past few days, worsening. She reports shortness of breath at rest but worse with exertion. No orthopnea. Her she has a productive cough with yellow sputum and has a subjective fever but has not measured a temperature at home. The patient has not had a fever while in the emergency department. She denies any sick contacts. She denies any chest pain, nausea or vomiting. No abdominal pain or urinary symptoms. She reports recently quitting smoking about 1 week ago hospital course: Patient was initially admitted for acute hypoxemic respiratory failure -initially was thought to be possible due to COPD and pneumonia ,sepsis -patient was given IV antibiotics and steroids chest CT-does not show pneumonia, has atelectasis, emphysem, pulmonary nodules: Subsequently patient was seen by Pulmonary, chest imaging negative for pneumonia, blood cultures negative,patient's symptoms likely had CHF exacerbation-echo was done EF found to have 45%, patient was diuresed with IV diuretics. Patient seems to be improved significantly with diuresis. Patient was switched to p.o. Lasix upon discharge, in addition added valsartan 20 mg b.i.d., and Jardiance 10 mg daily, discussed with cardiology Dr. Jones's office will arrange outpatient cardiology appointment. CHF education given-if gains weight 2 lb or more in a week-will need outpatient Lasix dosing assessment with PCP. Consider Follow-up with cardiology outpatient Has mild loose stool 2-3 episode earlier today but improved, no other abdominal symptoms or pain or fever: GI P panel negative. Consider p.r.n. Imodium. If any new symptoms or fever or abdominal pain-please go to nearest emergency room. Patient was advised to monitor CBC and BMP outpatient. In addition patient is to follow-up with PCP outpatient. plan: Lasix 20 mg daily. Valsartan 20 mg p.o. b.i.d. Jardiance 10 mg daily Extreme I want to see how many Tamiflu text Monitor CBC BMP outpatient Follow-up with PCP and Cardiology outpatient. Above management discussed with the patient detail length, she understand and in agreement with the above plan. Time spent 40 minute. All questions answered. Staff was present during conversation. Time Attestation Total time managing care of this patient today: 40 mintues. Discharge Coordination Time (in mins): 40 min Quality: Safe Use of Opioids Does Pt have an Active Cancer Diagnosis on the Problem List?: No Quality: Stroke Does the patient have a stroke diagnosis?: No Physical Exam Vital Signs: Vital Signs: Last Vital Signs Temp 96.9 F 02/20/25 07:54 Pulse 68 02/20/25 12:08 Resp 17 02/20/25 08:14 BP 117/68 02/20/25 07:54 Pulse Ox 92 02/20/25 07:54 O2 Del Method Nasal Cannula 02/20/25 07:54 O2 Flow Rate 2 02/20/25 07:54 Oxygen Flow Rate 5 02/11/25 16:33 BMI result Body Mass Index 32.7 general : Awake, interactive, not in distress Cardiovascular : RRR, s1s2 heard. Respiratory : Air entry fair, no rales or wheezing Gastrointestinal: soft, nd, Normal bowel sounds, Non tender Skin : Warm, Dry Neurological : Alert & oriented x3, No focal deficit DS: Data Data Completed and Pending Labs on day of discharge: Laboratory Results - last 24 hr 02/19/25 02/19/25 02/20/25 16:24 20:42 05:52 WBC 13.8 H RBC 4.67 Hgb 14.6 Hct 43.7 MCV 93.6 MCH 31.3 MCHC 33.4 RDW 13.7 Plt Count 349 MPV 9.0 L Absolute Nucleated RBC 0.000 Nucleated RBC % (auto) 0.0 Hold Purple Top SEE NOTE Creatinine 0.73 Estim Creat Clear Calc 96.7 Estimated GFR > 60 POC Glucose 222 H 169 H Stl C. cayetanensis PCR Stool Rotavirus A PCR Stl Adenov F 40/ PCR Stool Astrovirus (PCR) Stool Campylobacter PCR Stool Cryptosporidium PCR Stl Sh Tox Pr E STEC PCR Stool E coli O157 PCR Stl Enterotoxigenic E PCR Stool EPEC (PCR) Stool EAEC (PCR) Stl E. histolytica PCR Stool Giardia Lamblia PCR Stl P. shigelloides PCR Stool Salmonella PCR Stool Sapovirus (PCR) Stl Shigella/EIEC PCR St Y.enterocolitica PCR Stool Vibrio (PCR) Stl Vibrio cholerae PCR Stl Norovirus GI/GII PCR 02/20/25 02/20/25 02/20/25 07:33 11:21 12:21 WBC RBC Hgb Hct MCV MCH MCHC RDW Plt Count MPV Absolute Nucleated RBC Nucleated RBC % (auto) Hold Purple Top Creatinine Estim Creat Clear Calc Estimated GFR POC Glucose 98 143 H Stl C. cayetanensis PCR Not Detected Stool Rotavirus A PCR Not Detected Stl Adenov F 40/41 PCR Not Detected Stool Astrovirus (PCR) Not Detected Stool Campylobacter PCR Not Detected Stool Cryptosporidium PCR Not Detected Stl Sh Tox Pr E STEC PCR Not Detected Stool E coli O157 PCR Not applicable Stl Enterotoxigenic E PCR Not Detected Stool EPEC (PCR) Not Detected Stool EAEC (PCR) Not Detected Stl E. histolytica PCR Not Detected Stool Giardia [place] PCR Not Detected Stl P. shigelloides PCR Not Detected Stool Salmonella PCR Not Detected Stool Sapovirus (PCR) Not Detected Stl Shigella/EIEC PCR Not Detected St Y.enterocolitica PCR Not Detected Stool Vibrio (PCR) Not Detected Stl Vibrio cholerae PCR Not Detected Stl Norovirus GI/GII PCR Not Detected Imaging Chest x-ray: Radiologist's impression: ITS Impressions Chest CT 02/16/25 10:15 IMPRESSION: 1. Mild emphysema. 2. Subsegmental atelectasis in the right middle lobe, lingula, and both lower lobes. Small right pleural effusion. 3. Right middle lobe and left upper lobe pulmonary nodules as described. Follow-up is recommended with chest CT in 3 months. The patient may be scheduled for a routine low-dose screening chest CT at that time. Electronically signed by: Star Dillard MD 02/17/2025 07:33 AM EDT Discharge Plan Discharge Anticipated Discharge Date/Time: 02/20/25 14:00 Patient Disposition: Home, Self-Care Discharge Diagnosis: HFrEF execerebation Referrals: Brittanie Esteves MD [Primary Care Provider, Internal Medicine] - 1 Week Discharge Medications: New fluticasone furoate-vilanterol [Breo Ellipta] 200-25 mcg/dose Blister With Device 1 inh inhalation RDAILY Qty: 1 0RF Jardiance 10 mg Tablet 10 mg PO DAILY Qty: 90 0RF benzonatate 100 mg Capsule 100 mg PO TID PRN (Reason: Cough) Qty: 30 0RF valsartan 40 mg Tablet 20 mg PO BID Qty: 120 0RF Protocol: Hold for SBP< HOLD for SBP < : 90 furosemide [Lasix] 20 mg tablet 20 mg PO DAILY Qty: 90 0RF loperamide [Imodium A-D] 2 mg capsule 2 mg PO QID PRN (Reason: loose stool) Qty: 7 0RF Continued (DME) blood-glucose meter [OneTouch Ultra2 Meter] Misc See Rx Instructions .Route Qty: 1 0RF Rx Instructions: As directed (DME) OneTouch Ultra Test Strip See Rx Instructions .Route Qty: 100 3RF Rx Instructions: 1 q am albuterol sulfate 90 mcg/actuation HFA aerosol inhaler 2 puff inhalation QID PRN (Reason: shortness of breath or wheezing) Qty: 8.5 3RF montelukast 10 mg tablet 10 mg PO BEDTIME Qty: 90 3RF (DME) lancets [OneTouch Delica Plus Lancet] 30 gauge misc See Rx Instructions .Route Qty: 100 1RF Rx Instructions: test blood sugar once a day aspirin 81 mg Tablet,Delayed Release (Dr/Ec) 81 mg PO DAILY loratadine [Claritin] 10 mg Tablet 10 mg PO DAILY Incruse Ellipta 62.5 mcg/actuation blister with device 1 inh inhalation DAILY Qty: 90 3RF Discharge Orders: Discharge Order (Routine); Ordered 02/20/25 Ordered By: Trey Blevins Diet: Advance to usual diet Activity on Discharge: As tolerated Stand Alone Forms: Patient Portal Discharge page Print Language: Danish Other Ambulatory Orders: Basic Metabolic Panel (Routine) Timeframe: 1 Week Facility: [facility] - Location: Laboratory Ordered By: Trey Blevins Complete Blood Count no Diff (Routine) Timeframe: 1 Week Facility: [facility] - Location: Laboratory Ordered By: Trey Blevins Care Plan Goals: as below. Health Concerns: As below. Plan of Treatment: Lasix 20 mg daily. Valsartan 20 mg p.o. b.i.d. Jardiance 10 mg daily Incentive spirometry, also follow-up with pcp amd pulm as well as outpatient in 2-3 months repeat chest imaging for pulmonary nodules. Monitor CBC BMP outpatient Follow-up with PCP and Cardiology outpatient. Assessment: as above. Patient Instructions: Heart Failure (DC) Discharge Date/Time: 02/20/25 16:05
--- NOTE | 2025-02-20 15:10 | MHC.CM.PN ---
DP: PT HAS BEEN MEDICALLY CLEARED FOR DC HOME, NO SERVICES. PT HAS OWN [facility]. FINAL IMM DELIVERED.
== END 2025-02-20 16:05 | disposition home or self-care (01) | DRG 193 ==
LOC: HO.ED 17:00 → HO.EDOVER 21:17 → HO.S3 02-12 07:42
PROVIDERS: Hospitalist; Student in an Organized Health Care Education/Training Program; Admitting Provider Physician Assistant; Emergency Provider Internal Medicine; PCP Internal Medicine; Visit Provider Internal Medicine
DX: J18.9 Pneumonia, unspecified organism (principal); I50.23 Acute on chronic systolic (congestive) heart failure; J96.01 Acute respiratory failure with hypoxia; J44.1 Chronic obstructive pulmonary disease with (acute) exacerbation; J44.0 Chronic obstructive pulmonary disease with (acute) lower respiratory infection; J98.11 Atelectasis; I25.10 Atherosclerotic heart disease of native coronary artery without angina pectoris; E11.65 Type 2 diabetes mellitus with hyperglycemia; E78.5 Hyperlipidemia, unspecified; I49.3 Ventricular premature depolarization; E66.811 Obesity, class 1; Z71.3 Dietary counseling and surveillance; Z68.32 Body mass index [BMI] 32.0-32.9, adult; Z20.822 Contact with and (suspected) exposure to COVID-19; Z87.891 Personal history of nicotine dependence; Z79.899 Other long term (current) drug therapy
CPT/HCPCS: 36415; 71045; 71250; 80048; 80053; 82565; 82803; 82947; 83605; 83735; 83880; 84484; 85007; 85025; 85027; 85379; 87040; 87507; 87637; 93005; 93306; 94640; 99285; J0456; J0696; J1271; J1650; J1938; J2543; J2919; J3373; J3374; J3473; J3475; Q9957

== ENCOUNTER → 2025-02-11 16:52 | Outpatient (BNV) | payer MEDICARE, SELFPAY | PROVIDERS: Admitting Provider Physician Assistant; Emergency Provider Internal Medicine; PCP Internal Medicine; Visit Provider Internal Medicine Cardiovascular Disease | DX: I49.3 Ventricular premature depolarization (principal); I45.4 Nonspecific intraventricular block | CPT/HCPCS: 93010 ==

== ENCOUNTER → 2025-02-11 16:52 | Outpatient (BNV) | payer MEDICARE, SELFPAY | PROVIDERS: Emergency Provider Internal Medicine; PCP Internal Medicine; Visit Provider Radiology Diagnostic Radiology | DX: R06.02 Shortness of breath (principal) | CPT/HCPCS: 71045 ==

== ENCOUNTER 2025-02-11 20:21 | Outpatient (BNV) | payer MEDICARE, SELFPAY | END 2025-02-16 10:39 | PROVIDERS: Admitting Provider Physician Assistant; Emergency Provider Internal Medicine; PCP Internal Medicine; Visit Provider Radiology Diagnostic Radiology | DX: J98.11 Atelectasis (principal); J90 Pleural effusion, not elsewhere classified; R91.8 Other nonspecific abnormal finding of lung field | CPT/HCPCS: 71250 ==

== ENCOUNTER 2025-02-11 20:21 | Outpatient (BNV) | payer MEDICARE, SELFPAY | END 2025-02-12 07:00 | PROVIDERS: Admitting Provider Physician Assistant; Emergency Provider Internal Medicine; PCP Internal Medicine; Visit Provider Internal Medicine Cardiovascular Disease | DX: R79.89 Other specified abnormal findings of blood chemistry (principal) | CPT/HCPCS: 93306 ==

== ENCOUNTER 2025-02-11 20:21 | Outpatient (BNV) | payer MEDICARE, SELFPAY | END 2025-02-14 12:35 | PROVIDERS: Admitting Provider Physician Assistant; Emergency Provider Internal Medicine; PCP Internal Medicine; Visit Provider Radiology Diagnostic Radiology | DX: J90 Pleural effusion, not elsewhere classified (principal); J98.11 Atelectasis; J98.09 Other diseases of bronchus, not elsewhere classified | CPT/HCPCS: 71045 ==

== ENCOUNTER → 2025-02-11 20:21 | Outpatient (BNV) | payer MEDICARE, SELFPAY | PROVIDERS: Admitting Provider Physician Assistant; Emergency Provider Internal Medicine; PCP Internal Medicine; Visit Provider Physician Assistant | DX: I50.40 Unspecified combined systolic (congestive) and diastolic (congestive) heart failure (principal); J18.9 Pneumonia, unspecified organism; J44.1 Chronic obstructive pulmonary disease with (acute) exacerbation; J96.01 Acute respiratory failure with hypoxia | CPT/HCPCS: 99231; 99232; 99233 ==

== ENCOUNTER → 2025-02-11 20:21 | Outpatient (BNV) | payer MEDICARE, SELFPAY | PROVIDERS: Admitting Provider Physician Assistant; Emergency Provider Internal Medicine; PCP Internal Medicine; Visit Provider Internal Medicine Pulmonary Disease | DX: J96.01 Acute respiratory failure with hypoxia (principal); J44.9 Chronic obstructive pulmonary disease, unspecified; I50.40 Unspecified combined systolic (congestive) and diastolic (congestive) heart failure | CPT/HCPCS: 99223 ==

== ENCOUNTER 2025-02-25 12:45 | Outpatient (AMB) | payer MEDICARE, SELFPAY ==
[2025-02-25 13:13] VITALS: BP 118/60; PULSE 84; RESP 20; TEMP 37.1; O2SAT 97; BMI 32.1
--- NOTE | 2025-02-25 13:13 | MHC.PC.OV ---
Vital Signs 02/25/25 13:13 Height 5 ft 7 in Weight 205 lb BMI 32.1 BP 118/60 Blood Pressure Location Lt brachial Position Sitting Respiration 20 Pulse 84 Pulse Source Pulse Oximeter Temp 98.7 F Temp Source Oral Pulse Oximetry (%) 97 Oxygen Delivery Method Room Air Intake Visit Reasons: TCM Intake Note: Pt is here today for TCM. Allergies Sulfa (Sulfonamide Antibiotics) Allergy (Verified 02/25/25 13:21) mild headache nicotine Adverse Reaction (Unknown, Verified 02/25/25 13:21) vomiting strawberry (STRAWBERRY) Adverse Reaction (Unknown, Verified 02/25/25 13:21) BLOODY STOOLS PER PATIENT SEASONAL ALLERGIES Allergy (Mild, Uncoded 02/25/25 13:21) DIFFICULTY BREATHING Medication List - Last Reconciled 02/25/25 by Brittanie Esteves MD albuterol sulfate 90 mcg/actuation 2 puffs inhalation QID PRN aspirin 81 mg PO DAILY benzonatate 100 mg PO TID PRN blood sugar diagnostic (netFactorTouch Ultra Test strips) 1 q am blood-glucose meter ([employer] Ultra2 Meter) As directed empagliflozin (Jardiance) 10 mg PO DAILY fluticasone furoate-vilanterol 200-25 mcg/dose (Breo Ellipta) 1 inh inhalation RDAILY furosemide (Lasix) 20 mg PO DAILY lancets ([employer] Delica Plus Lancet) test blood sugar once a day loperamide (Imodium A-D) 2 mg PO QID PRN loratadine (Claritin) 10 mg PO DAILY montelukast 10 mg PO BEDTIME umeclidinium 62.5 mcg/actuation (Incruse Ellipta) 1 inh inhalation DAILY valsartan 20 mg See Protocol PO BID Tobacco use date assessed: 02/25/25 Dental Screening Dental Screen Date: 09/04/24 [facility] TCM HPI Details Patient presents for TCM after hospitalization at [facility] for COPD exacerbation sepsis. Patient was treated with antibiotics and steroids. She was started on Jardiance for high glucose up to 200 while on steroids. Patient has been monitor her blood glucose at home with the readings of 110 fasting. She is trying to quit smoking and has been using Breo and Incruse regularly. chest CT showed 2 lung nodules: right middle lobe 7 x 4 mm and left upper lobe 6 x [address] in 3 months was recommended. She denies cough or shortness of breath. Echocardiogram in the hospital showed mildly reduced ejection fraction to 45-50%, no significant wall motion or valvular abnormalities. BNP was normal. Patient was started on valsartan for heart failure with reduced ejection fraction and furosemide for chronic lower extremities swelling. TCM TCM Information Date of Discharge 02/20/25 Discharged From [facility] Interactive Contact Date (Reference documentation from this date) 02/21/25 [facility] Medical History (Updated 02/25/25 @ 15:04 by Brittanie Esteves MD) Pulmonary nodule Heart failure with reduced ejection fraction MDD (major depressive disorder), recurrent episode Diabetes type 2 Antiphospholipid antibody positive Nicotine dependence, cigarettes, uncomplicated Hyperlipidemia Foot pain, bilateral Depression Anxiety Right shoulder tendinitis Sciatica COPD (chronic obstructive pulmonary disease) Surgical History History of colonoscopy Family History Father Diabetes mellitus Heart problem Mother COPD (chronic obstructive pulmonary disease) Emphysema, unspecified Diabetes mellitus Social History Household Members: None Housing: Other Housing Other:: mobile home Do you presently have visiting nurse or other home services: No Patient Tobacco Use Status: Former Tobacco user Tobacco use type: Cigarette Cigarette Packs Per Day: 1 Cigarettes Per Day: 20.0 Years Smoked: (onset 17yo, 1ppd x 39yrs, now 1/2ppd, 35+pyh) e-Cigarette/Vaping Use: Never Used service: No Current occupational status: unemployed Cognitive needs: No Hearing needs: No Vision needs: Yes Questionnaire Thrive Questionnaire Date Thrive assessed: 09/04/24 I am a: Patient What is your living situation today?: I have a place to live, but I am worried about losing it in the future Within the past 12 months, did the food you bought not last and you didn't have the money to get more?: Sometimes True Within the past 12 months, did you worry whether your food would run out before you got money to buy more?: Sometimes True Do you have trouble paying for medicines?: Yes Do you have trouble getting transportation to medical appointments?: No Do you have trouble paying your heating and electricity bill?: I choose not to answer this question Do you have trouble taking care of your child, family member or friend?: I choose not to answer this question Do you have trouble with day-to-day activities such as bathing, preparing meals, shopping, managing finances, etc.?: No Are you currently unemployed and looking for a job?: I choose not to answer this question Are you interested in more education?: I choose not to answer this question Please select the resources that you would like help with: None Currently or been in a relationship where the following occur: I choose not to answer THRIVE Score: 3 CHAPIN-7 AMB Questionnaire CHAPIN-7 Date CHAPIN - 7 assessed: 09/04/24 Source: Developed by Drs. Star Cartwright, Asiya Linares, Omsar Zhong and colleagues, with an educational nasim from [email or web address]. Review of Systems Const All systems reviewed & are unremarkable except as noted in HPI and below Eyes Reports no additional complaints ENT Reports no additional complaints Card Reports no additional complaints Resp Reports no additional complaints GI Reports no additional complaints Reports no additional complaints Physical exam (Primary Care) Vital Signs: Last Vital Signs Temp 98.7 F 02/25/25 13:13 Pulse 84 02/25/25 13:13 Resp 20 02/25/25 13:13 BP 118/60 02/25/25 13:13 Pulse Ox 97 02/25/25 13:13 Oxygen Delivery Method Room Air 02/25/25 13:13 BMI result Body Mass Index 32.1 Tobacco/Smoking Status: Tobacco use Status Tobacco use date assessed 02/25/25 02/25/25 13:26 Patient Tobacco Use Status Former Tobacco user 02/25/25 13:14 Tobacco use type Cigarette 02/25/25 13:14 e-Cigarette/Vaping Use Never Used 02/25/25 13:14 Thrive Assessment: Date of Thrive Assessment Date Thrive assessed 09/04/24 02/25/25 13:14 Currently or been in a relationship where the following occur: I choose not to answer Const General: no acute distress HENMT Head: Yes normal to inspection Eyes General: appearance normal, both eyes and all related structures Neck Neck: Yes supple Resp Effort & Inspection: normal respiratory effort Auscultation: diminished lung sounds Cardio Rhythm: regular rhythm Heart sounds: S1 normal heart sound present and S2 normal heart sound present GI Inspection: Yes normal to inspection Palpation (GI): Soft to palpation Percussion: Yes normal to percussion Extrem Other: 2+ pitting edema b/l Coding Level of Care Code TCM High MDM <= 7 Days Diagnoses MDD (major depressive disorder), recurrent episode F33.9 Heart failure with reduced ejection fraction I50.20 DM type 2 (diabetes mellitus, type 2) E11.9 COPD (chronic obstructive pulmonary disease) J44.9 Pulmonary nodule R91.1 Assessment & Plan Assessment & Plan (1) MDD (major depressive disorder), recurrent episode: Comment: Established with psychiatrist and therapist Code(s): F33.9 - Major depressive disorder, recurrent, unspecified Category: Medical Plan: Follow-up with psychiatry (2) Heart failure with reduced ejection fraction: Comment: Echo [facility] [place] [place] 02/2025 EJECTION FRACTION MILDLY REDUCED 45-50% NO SEGMENTAL WALL MOTION ABNORMALITIES, obtain during hospitalization for COPD exacerbation Code(s): I50.20 - Unspecified systolic (congestive) heart failure Category: Medical Plan: Continue valsartan and furosemide. Patient has an appointment with senior software engineering manager. (3) DM type 2 (diabetes mellitus, type 2): Comment: Started on Jardiance 02/12/2025 Code(s): E11.9 - Type 2 diabetes mellitus without complications Category: Medical Plan: Continue ADA diet increase physical activity continue Jardiance and patient will start monitoring her blood glucose regularly. Follow-up in 2 weeks (4) COPD (chronic obstructive pulmonary disease): Code(s): J44.9 - Chronic obstructive pulmonary disease, unspecified Category: Medical Plan: Continue Breo and Incruse tobacco quitting discussed with the patient. (5) Pulmonary nodule: Comment: CT 02/12/2025 RIGHT MIDDLE LOBE 7 X 4 MM AND LEFT UPPER LOBES 6 X 3 MM PULMONARY NODULES REPEAT CT IN 3 MONTHS RECOMMENDED Code(s): R91.1 - Solitary pulmonary nodule Category: Medical Plan: Patient needs a repeat CT in 3 months Medications: Refilled fluticasone furoate-vilanterol 200-25 mcg/dose (Breo Ellipta) 1 inh inhalation RDAILY 1 ea 3RF blood sugar diagnostic (netFactorTouch Ultra Test strips) 1 q am 100 ea 3RF Discontinued benzonatate Discontinued Reason: Doctor's Order 100 mg PO TID PRN 30 caps 0RF Cough
== END 2025-02-25 15:05 | disposition home or self-care (01) ==
LOC: HO.HMCC 12:46
PROVIDERS: PCP Internal Medicine; Visit Provider Internal Medicine
DX: I50.20 Unspecified systolic (congestive) heart failure (principal); E11.9 Type 2 diabetes mellitus without complications; J44.9 Chronic obstructive pulmonary disease, unspecified; F33.9 Major depressive disorder, recurrent, unspecified; R91.1 Solitary pulmonary nodule

== ENCOUNTER → 2025-02-25 12:45 | Outpatient (BNVA) | payer MEDICARE, SELFPAY | PROVIDERS: PCP Internal Medicine; Visit Provider Internal Medicine | DX: F33.9 Major depressive disorder, recurrent, unspecified (principal); I50.20 Unspecified systolic (congestive) heart failure; E11.9 Type 2 diabetes mellitus without complications; J44.9 Chronic obstructive pulmonary disease, unspecified; R91.1 Solitary pulmonary nodule | CPT/HCPCS: 99496 ==

== ENCOUNTER 2025-02-27 07:48 | Outpatient (REF) | payer MEDICARE, SELFPAY ==
[2025-02-27 10:15] LABS: Hematocrit 40.9 % (37.0-47.0); Hemoglobin 13.3 g/dl (12.0-16.0); Mean Corpuscular HGB Conc 32.5 g/dl (31.0-35.0); Mean Corpuscular Hemoglobin 30.9 pg (27.0-33.0); Mean Corpuscular Volume 95.1 fL (80.0-98.0); NRBC Abs Auto 0.000 X10*3/uL (0.0-0.012); NRBC Pct Auto 0.0 /100WBC (0.0-0.2); Platelet Count 296 X10*3/uL (160-400); Red Blood Count 4.30 X10*6/uL (4.20-5.50); White Blood Count 8.1 X10*3/uL (4.8-10.8)
== END 2025-02-27 07:49 | disposition home or self-care (01) ==
LOC: HO.HMGCLDS 07:48
PROVIDERS: PCP Internal Medicine; Visit Provider Internal Medicine
DX: D72.829 Elevated white blood cell count, unspecified (principal)
CPT/HCPCS: 36415; 85027

== ENCOUNTER 2025-03-20 11:49 | Outpatient (REF) | payer MEDICARE, SELFPAY | END 2025-03-20 11:50 | disposition home or self-care (01) | LOC: HO.MAMMO 11:49 | PROVIDERS: Visit Provider Internal Medicine | DX: Z12.31 Encounter for screening mammogram for malignant neoplasm of breast (principal) | CPT/HCPCS: 77063; 77067 ==

== ENCOUNTER → 2025-03-20 12:00 | Outpatient (BNV) | payer MEDICARE, SELFPAY | PROVIDERS: Visit Provider Radiology Body Imaging | DX: Z12.31 Encounter for screening mammogram for malignant neoplasm of breast (principal) | CPT/HCPCS: 77063; 77067 ==

== ENCOUNTER 2025-04-28 11:23 | Outpatient (REF) | payer MEDICARE, SELFPAY ==
[2025-04-28 13:23] LABS: MANUAL DIFF FLAG NO
[2025-04-28 13:25] LABS: Hematocrit 46.7 % (37.0-47.0); Hemoglobin 15.2 g/dl (12.0-16.0); Imm Gran Abs Auto 0.02 X10*3/uL (0.00-0.03); Imm Gran Pct Auto 0.2 % (0.0-0.4); Lymphocytes Absolute Auto 3.1 X10*3/uL (1.2-4.9); Mean Corpuscular HGB Conc 32.5 g/dl (31.0-35.0); Mean Corpuscular Hemoglobin 30.8 pg (27.0-33.0); Mean Corpuscular Volume 94.5 fL (80.0-98.0); NRBC Abs Auto 0.000 X10*3/uL (0.0-0.012); NRBC Pct Auto 0.0 /100WBC (0.0-0.2); Platelet Count 302 X10*3/uL (160-400); Red Blood Count 4.94 X10*6/uL (4.20-5.50); White Blood Count 8.3 X10*3/uL (4.8-10.8)
[2025-04-28 13:44] LABS: Hemoglobin A1C 181.9260 umol/L; Total Hemoglobin (HGBA1C) 3994.2934 umol/L
[2025-04-28 13:45] LABS: Microalbum/Creatinine Ratio Ur 9.3 ug/mg cr (<30)
[2025-04-28 16:59] LABS: Alanine Aminotransferase 18 U/L (0-31); Albumin Level 4.4 g/dL (3.5-5.0); Alkaline Phosphatase 69 U/L (39-117); Anion Gap 14 (12-20); Aspartate Amino Transferase 28 U/L (5-31); Blood Urea Nitrogen 11 mg/dL (9-16); Calcium 9.0 mg/dL (8.4-10.2); Carbon Dioxide 26 mmol/L (22-29); Chloride 105 mmol/L (96-108); Cholesterol 257 mg/dL (<200); Estimated Glomerular Filt Rate > 60; HDL Cholesterol 38 mg/dL (>40); Potassium 3.7 mmol/L (3.3-5.1); Sodium 141 mmol/L (135-145); Total Protein 6.8 g/dL (6.5-8.0); Triglycerides 151 mg/dL (<150)
== END 2025-04-28 11:24 | disposition home or self-care (01) ==
LOC: HO.HMGCLDS 11:23
PROVIDERS: PCP Internal Medicine; Visit Provider Internal Medicine
DX: E11.9 Type 2 diabetes mellitus without complications (principal); J44.9 Chronic obstructive pulmonary disease, unspecified; E78.5 Hyperlipidemia, unspecified
CPT/HCPCS: 36415; 80053; 80061; 82043; 82306; 82570; 83036; 85025

== ENCOUNTER 2025-04-29 11:26 | Outpatient (AMB) | payer MEDICARE, SELFPAY ==
[2025-04-29 12:21] VITALS: BP 130/70; PULSE 80; O2SAT 96; BMI 31.8
--- NOTE | 2025-04-29 12:21 | A.OFFPC_ITS ---
Vital Signs 04/29/25 12:21 Height 5 ft 7 in Weight 203 lb BMI 31.8 BP 130/70 Blood Pressure Location Lt brachial Position Sitting Pulse 80 Pulse Source Pulse Oximeter Pulse Oximetry (%) 96 Intake Visit Reasons: Annual PE - see comments Intake Note: pt is here for PE, would like to speak with community ricky. today Allergies Sulfa (Sulfonamide Antibiotics) Allergy (Verified 04/29/25 12:21) mild headache nicotine Adverse Reaction (Unknown, Verified 04/29/25 12:21) vomiting strawberry (STRAWBERRY) Adverse Reaction (Unknown, Verified 04/29/25 12:21) BLOODY STOOLS PER PATIENT SEASONAL ALLERGIES Allergy (Mild, Uncoded 02/25/25 13:21) DIFFICULTY BREATHING Medication List - Last Reconciled 04/29/25 by Brittanie Esteves MD albuterol sulfate 90 mcg/actuation 2 puffs inhalation QID PRN aspirin 81 mg PO DAILY blood sugar diagnostic ([address] [employer] Ultra Test strips) 1 q am blood-glucose meter ([employer] Ultra2 Meter) As directed empagliflozin (Jardiance) 10 mg PO DAILY fluticasone furoate-vilanterol 200-25 mcg/dose (Breo Ellipta) 1 inh inhalation RDAILY furosemide (Lasix) 20 mg PO DAILY lancets ([address] [employer] Delica Plus Lancet) test blood sugar once a day loperamide (Imodium A-D) 2 mg PO QID PRN loratadine (Claritin) 10 mg PO DAILY montelukast 10 mg PO BEDTIME umeclidinium 62.5 mcg/actuation (Incruse Ellipta) 1 inh inhalation DAILY valsartan 40 mg PO .qd Tobacco use date assessed: 02/25/25 Dental Screening Dental Screen Date: 09/04/24 HPI Annual PE - see comments HPI Details Pt presents for PE. Pt c/o LBP worse when standing for long time, on and off for one month, no radiation of pain to lower extremities, no weakness numbness in extremities, no change in bowel or bladder function. [facility] Medical History Elevated troponin Sepsis COPD exacerbation Pulmonary nodule Heart failure with reduced ejection fraction MDD (major depressive disorder), recurrent episode Diabetes type 2 Antiphospholipid antibody positive Nicotine dependence, cigarettes, uncomplicated Hyperlipidemia Foot pain, bilateral Depression Anxiety Right shoulder tendinitis Sciatica COPD (chronic obstructive pulmonary disease) Surgical History History of colonoscopy Family History Father Diabetes mellitus Heart problem Mother COPD (chronic obstructive pulmonary disease) Emphysema, unspecified Diabetes mellitus Social History Household Members: None Housing: Other Housing Other:: mobile home Do you presently have visiting nurse or other home services: No Patient Tobacco Use Status: Former Tobacco user Tobacco use type: Cigarette Cigarette Packs Per Day: 1 Cigarettes Per Day: 20.0 Years Smoked: (onset 17yo, 1ppd x 39yrs, now 1/2ppd, 35+pyh) e-Cigarette/Vaping Use: Never Used service: No Current occupational status: unemployed Cognitive needs: No Hearing needs: No Vision needs: Yes Questionnaire PHQ-9 Over the last 2 weeks, how often have you been bothered by any of the following problems? 1. Little interest or pleasure in doing things: more than half the days 2. Feeling down, depressed, or hopeless: more than half the days 3. Trouble falling or staying asleep, or sleeping too much: more than half the days 4. Feeling tired or having little energy: nearly every day 5. Poor appetite or overeating: more than half the days 6. Feeling bad about yourself - or that you are a failure or have let yourself or your family down: several days 7. Trouble concentrating on things, such as reading the newspaper or watching television: more than half the days 8. Moving or speaking so slowly that other people could have noticed. Or the opposite - being so fidgety or restless that you have been moving around a lot more than usual: not at all 9. Thoughts that you would be better off or of hurting yourself in some way: not at all (pt states not recently ) Total score: 14 Depression Screening Interpretation: Positive (Patient is established with a counselor and declined medications) Depression Screening Follow-up: Existing condition and Declines treatment Depression Screening Done: Yes 26703 - PHQ-9 Billing: Yes Source: Developed by Drs. Star Cartwright, Asiya Linares, Osmar Zhong and colleagues, with an educational nasim from [employer]. Thrive Questionnaire Date Thrive assessed: 04/29/25 I am a: Patient What is your living situation today?: I have a place to live, but I am worried about losing it in the future Within the past 12 months, did the food you bought not last and you didn't have the money to get more?: Sometimes True Within the past 12 months, did you worry whether your food would run out before you got money to buy more?: Sometimes True Do you have trouble paying for medicines?: Yes Do you have trouble getting transportation to medical appointments?: No Do you have trouble paying your heating and electricity bill?: I choose not to answer this question Do you have trouble taking care of your child, family member or friend?: I choose not to answer this question Do you have trouble with day-to-day activities such as bathing, preparing meals, shopping, managing finances, etc.?: No Are you currently unemployed and looking for a job?: I choose not to answer this question Are you interested in more education?: I choose not to answer this question Please select the resources that you would like help with: None Currently or been in a relationship where the following occur: I choose not to answer THRIVE Score: 3 AUDIT C Alcohol Use Questionnaire (AUDIT-C) 1. How often do you have a drink containing alcohol?: Monthly or less 2. How many drinks containing alcohol do you have on a typical day when you are drinking?: 1 or 2 3. How often do you have six or more drinks on one occasion?: Never Total Score: 1 CHAPIN-7 AMB Questionnaire CHAPIN-7 Date CHAPIN - 7 assessed: 04/29/25 Feeling nervous, anxious, or on edge: 1 = Several days Not being able to stop or control worryin = Several days Worrying too much about different things: 1 = Several days Trouble relaxin = Several days Being so restless that it is hard to sit still: 0 = Not at all Becoming easily annoyed or irritable: 1 = Several days Feeling afraid as if something awful might happen: 1 = Several days Total CHAPIN-7 score (0-4 normal; 5-9 mild; 10-14 moderate; 15-21 severe): 6 Source: Developed by Drs. Star Cartwright, Asiya Linares, Osmar Zhong and colleagues, with an educational nasim from [employer]. CHAIPN-7 Assessment Billing CHAPIN-7 Assessment Tool: CHAPIN-7 Assessment 13362 Review of Systems Const All systems reviewed & are unremarkable except as noted in HPI and below Eyes Reports no additional complaints ENT Reports no additional complaints Card Reports no additional complaints Resp Reports no additional complaints GI Reports no additional complaints Reports no additional complaints Physical exam (Primary Care) Vital Signs: Last Vital Signs Pulse 80 04/29/25 12:21 BP 130/70 04/29/25 12:21 Pulse Ox 96 04/29/25 12:21 BMI result Body Mass Index 31.8 Tobacco/Smoking Status: Tobacco use Status Tobacco use date assessed 02/25/25 04/29/25 12:25 Patient Tobacco Use Status Former Tobacco user 04/29/25 12:25 Tobacco use type Cigarette 04/29/25 12:25 e-Cigarette/Vaping Use Never Used 04/29/25 12:25 PHQ-9: PHQ-9 Score PHQ-9: Total score 14 04/29/25 12:26 Depression Screening Interpretation: Positive (Patient is established with a counselor and declined medications) Depression Screening Follow-up: Existing condition and Declines treatment Thrive Assessment: Date of Thrive Assessment Date Thrive assessed 04/29/25 04/29/25 12:25 Currently or been in a relationship where the following occur: I choose not to answer Const General: no acute distress HENMT Head: Yes normal to inspection Ears: hearing grossly normal bilaterally Face and sinus: Yes normal facial exam Mouth: Normal oral and palatal mucosa present Throat: Yes posterior oropharynx normal Eyes General: appearance normal, both eyes and all related structures Neck Neck: Yes no lymphadenopathy and Yes supple Resp Effort & Inspection: normal respiratory effort Auscultation: clear to auscultation bilaterally Cardio Rhythm: regular rhythm Heart sounds: S1 normal heart sound present and S2 normal heart sound present GI Inspection: Yes normal to inspection Palpation (GI): Soft to palpation Percussion: Yes normal to percussion Auscultation: normal bowel sounds Back/Spine/Pelvis Other: Paraspinal tenderness in lower lumbar region, straight leg rising 90 degrees bilaterally, strength 5/5 bilaterally, deep tendon reflexes 1+ bilaterally Coding Level of Care Code Est Pt Prev Care 40-64y(96373) Diagnoses Heart failure with reduced ejection fraction I50.20 Acute cystitis with hematuria N30.01 Urinary tract infection type: acute cystitis Hematuria presence: with hematuria Pulmonary nodule R91.1 Lower back pain M54.50 DM type 2 (diabetes mellitus, type 2) E11.9 COPD (chronic obstructive pulmonary disease) J44.9 Nicotine dependence, cigarettes, uncomplicated F17.210 Additional Codes CHAPIN-7 Assessment Billing - CHAPIN-7 Assessment Tool: CHAPIN-7 Assessment 19856 ([id number]) PHQ-9 - 98855 - PHQ-9 Billing: Yes ([id number]) Assessment & Plan Assessment & Plan (1) Heart failure with reduced ejection fraction: Comment: Echo [facility] [place] 02/2025 EJECTION FRACTION MILDLY REDUCED 45-50% NO SEGMENTAL WALL MOTION ABNORMALITIES, obtain during hospitalization for COPD exacerbation Code(s): I50.20 - Unspecified systolic (congestive) heart failure Category: Medical Plan: Continue valsartan and furosemide repeat echocardiogram (2) Urinary tract infection: Code(s): N39.0 - Urinary tract infection, site not specified Category: Medical Qualifiers: Urinary tract infection type: acute cystitis Hematuria presence: with hematuria Qualified Code(s): N30.01 - Acute cystitis with hematuria Plan: For history of UTI check UA and culture (3) Pulmonary nodule: Comment: CT 02/12/2025 RIGHT MIDDLE LOBE 7 X 4 MM AND LEFT UPPER LOBES 6 X 3 MM PULMONARY NODULES REPEAT CT IN 3 MONTHS RECOMMENDED Code(s): R91.1 - Solitary pulmonary nodule Category: Medical Plan: Scheduled repeat CT of the chest to follow-up on lung nodules (4) Lower back pain: Code(s): M54.50 - Low back pain, unspecified Category: Medical Plan: Referred to physical therapy (5) DM type 2 (diabetes mellitus, type 2): Comment: Started on Jardiance 02/12/2025 Code(s): E11.9 - Type 2 diabetes mellitus without complications Category: Medical Plan: A1c is 6.3, ADA diet regular exercise weight loss discussed with the patient continue Jardiance follow-up in 4 months with a fasting labs before (6) COPD (chronic obstructive pulmonary disease): Code(s): J44.9 - Chronic obstructive pulmonary disease, unspecified Category: Medical Plan: Continue Incruse and Breo (7) Nicotine dependence, cigarettes, uncomplicated: Comment: quit 1 week ago, previously 1ppd Code(s): F17.210 - Nicotine dependence, cigarettes, uncomplicated Category: Medical Plan: Tobacco quitting discussed with the pt Orders: Orders Urine Culture Today N30.01 - Acute cystitis with hematuria CT chest wo IV con 05/14/25 R91.1 - Solitary pulmonary nodule Lipid Panel 4 Months E11.9 - Type 2 diabetes mellitus without complications, I50.20 - Unspecified systolic (congestive) heart failure CA Echo Limited Today I50.20 - Unspecified systolic (congestive) heart failure UA w Microscopic Today N30.01 - Acute cystitis with hematuria PT Evaluation and Treatment Today M54.50 - Low back pain, unspecified Hemoglobin A1c 4 Months E11.9 - Type 2 diabetes mellitus without complications, I50.20 - Unspecified systolic (congestive) heart failure Comprehensive [place]. Panel Fast 4 Months E11.9 - Type 2 diabetes mellitus without complications, I50.20 - Unspecified systolic (congestive) heart failure Complete Blood Count Auto Diff 4 Months E11.9 - Type 2 diabetes mellitus without complications, I50.20 - Unspecified systolic (congestive) heart failure Referrals Cologuard Test N30.01 - Acute cystitis with hematuria, Z12.11 - Encounter for screening for malignant neoplasm of colon, Z12.12 - Encounter for screening for malignant neoplasm of rectum Medications: Changed From valsartan 20 mg See Protocol PO BID 120 tabs 0RF To valsartan 40 mg PO .qd 90 tabs 1RF Refilled empagliflozin (Jardiance) 10 mg PO DAILY 90 tabs 3RF furosemide (Lasix) 20 mg PO DAILY 90 tabs 3RF
== END 2025-04-29 13:08 | disposition home or self-care (01) ==
LOC: HO.HMCC 11:27
PROVIDERS: PCP Internal Medicine; Visit Provider Internal Medicine
DX: Z00.00 Encounter for general adult medical examination without abnormal findings (principal); E11.9 Type 2 diabetes mellitus without complications; I50.20 Unspecified systolic (congestive) heart failure; J44.9 Chronic obstructive pulmonary disease, unspecified; N30.01 Acute cystitis with hematuria; R91.1 Solitary pulmonary nodule; M54.50 Low back pain, unspecified; F17.210 Nicotine dependence, cigarettes, uncomplicated

== ENCOUNTER → 2025-04-29 11:26 | Outpatient (BNVA) | payer MEDICARE, SELFPAY | PROVIDERS: PCP Internal Medicine; Visit Provider Internal Medicine | DX: I50.20 Unspecified systolic (congestive) heart failure (principal); N30.01 Acute cystitis with hematuria; R91.1 Solitary pulmonary nodule; M54.50 Low back pain, unspecified; E11.9 Type 2 diabetes mellitus without complications; J44.9 Chronic obstructive pulmonary disease, unspecified; F17.210 Nicotine dependence, cigarettes, uncomplicated | CPT/HCPCS: 96127; 99396 ==

== ENCOUNTER → 2025-05-29 12:49 | Outpatient (REF) | payer MEDICARE, SELFPAY ==
--- NOTE | 2025-05-29 12:56 | CA_ITS ---
Transthoracic Echocardiogram Patient (Last, First, Middle): Jillian Raymond E Gender: Female Date of : 1965 Age: 59 Procedure Date: 05/29/2025 Procedure Type: Transthoracic Echocardiogram Location: OP Height: 170.18 cm Weight: 90.72 kg BSA: 2.02 m2 Heart Rate: bpm BP: 138 / 70 mmHg Personnel Security Assistant: TO/RC Referring MD: Brittanie Esteves MD Deputy Clerk Of Superior Court: Josiah Byrne MD Symptoms: I50.20 - Unspecified systolic (congestive) heart failure Study Quality: Fair/Contrast ECG Rhythm: Sinus Conclusions: - Moderately reduced LV EF of 35-40% with grade 1 diastolic dysfunction Findings Procedure Information Contrast agent, definity, is being given per protocol without apparent complications. Left Ventricle Normal left ventricular cavity size. There is normal left ventricular wall thickness. The left ventricular systolic function is moderately decreased. The visually estimated ejection fraction is between 35-40%. There is paradoxical septal motion consistent with a left bundle branch block. Spectral Doppler is indicative of an impaired relaxation filling pattern. E/E prime ratio is <8, consistent with normal filling pressures. Evidence suggests grade I (mild) diastolic dysfunction. Pericardium/Pleural There is no evidence of pericardial effusion. Prior Study Comparison Changes noted compared to prior study dated: 02/12/2025. LV ejection fraction is measured to be lower Measurements 2D Linear Measurements IVSd: 1.04 0.6-0.9/0.6-1.0 cm LVIDd: 4.68 3.9-5.3/4.2-5.9 cm LVIDd Index: 2.32 2.4-3.2/2.2-3.1 cm/m2 LVIDs: 3.78 2.0-3.6 cm LVPWd: 1.06 0.7-1.1 cm LA Diam: 3.30 2.7-3.8/3.0-4.0 cm LAIDs Index: 1.63 1.5-2.3 cm/m2 LV Mass: 217.53 67-162/88-224 g LV Mass Index: 107.69 43-95/49-115 g/m2 LVOT Diam: 2.40 3.0+(-)1.3 cm 2D Systolic Function EF 4C: 40.30 >55% EF 2C: 37.00 >55% EF BiP: 39.30 >55% Mitral Valve MV Pk E: 0.42 MV PK A: 0.75 MV Decel Time: 117.00 E/A: 0.60 E'Lateral: 7.45 E'Medial: 4.29 E/E' Med: 9.80 E/E' Lat: 5.60 PHT: 34.00 MVA PHT: 6.47 Decel [place]: 3.59 LVOT LVOT Pk Edgar: 0.87 LVOT Mn Edgar: 0.59 LVOT VTI: 0.16 LVOT Pk Grad: 3.00 LVOT Mn Grad: 2.00 LVOT Diam: 2.40 LVOT Area: 4.52 Diastolic Function MV Pk E: 0.42 MV Pk A: 0.75 E/A: 0.60 E'Medial: 4.29 E/E' Med: 9.80 E' Laterial: 7.45 E/E' Lat: 5.60 Tricuspid Valve RA Press: 3.00 Updated in Other Vendor System with Status of Final Josiah Byrne MD electronically signed on 05/29/2025 4:18:54 PM with status of Final
== END ==
LOC: HO.CARD 12:49
PROVIDERS: PCP Internal Medicine; Visit Provider Internal Medicine
DX: I50.20 Unspecified systolic (congestive) heart failure (principal)
CPT/HCPCS: 93308; Q9957

== ENCOUNTER → 2025-05-29 12:56 | Outpatient (BNV) | payer MEDICARE, SELFPAY | PROVIDERS: PCP Internal Medicine; Visit Provider Internal Medicine Cardiovascular Disease | DX: I50.20 Unspecified systolic (congestive) heart failure (principal) | CPT/HCPCS: 93308; 93321 ==

== ENCOUNTER 2025-06-21 09:50 | Outpatient (REF) | payer MEDICARE, SELFPAY ==
--- NOTE | ~2025-06-21 | CT_ITS ---
CLINICAL HISTORY: R91.1 - Solitary pulmonary nodule --- Additional Notes or Special Instructions: 3 month f u new lung nodules CT chest without contrast Comparison: 02/16/2025 Findings: Small/physiological pericardial effusion. No cardiomegaly. Moderate multibranch coronary artery calcifications. The visualized thyroid and mediastinum are unremarkable. Smoking-related lung and airway changes. New mildly branching spiculated nodule/nodules in the medial basal segment of the right lower lobe on series 5, image 124 with an overall measurement of up to 3 x 16 mm in the axial plane. Previously described right middle lobe lung nodule has resolved. Relatively elongated 5 mm left upper lobe nodule (series 5, image 59) not significantly changed from prior study. The upper abdomen is unremarkable. No acute fractures. IMPRESSION: Smoking-related lung and airway changes. New mildly branching spiculated nodule/nodules in the medial basal segment of the right lower lobe possibly inflammatory (due to focal mucosal plugging/bronchiolitis). Follow-up low-dose chest CT in 1 month recommended. Previously described right middle lobe lung nodule has resolved. Stable 5 mm left upper lobe nodule. This document has been electronically signed by: Heather Gregg MD on 06/24/2025 12:34:39
== END 2025-06-21 09:51 | disposition home or self-care (01) ==
LOC: HO.CT 09:50
PROVIDERS: PCP Internal Medicine; Visit Provider Internal Medicine
DX: R91.1 Solitary pulmonary nodule (principal)
CPT/HCPCS: 71250

== ENCOUNTER → 2025-06-21 09:52 | Outpatient (BNV) | payer MEDICARE, SELFPAY | PROVIDERS: PCP Internal Medicine; Visit Provider Radiology Diagnostic Radiology | DX: R91.1 Solitary pulmonary nodule (principal) | CPT/HCPCS: 71250 ==

== ENCOUNTER 2025-07-02 13:27 | Outpatient (REF) | payer MEDICARE, SELFPAY ==
[2025-07-02 16:32] LABS: Anion Gap 13 (12-20); Blood Urea Nitrogen 9 mg/dL (9-16); Calcium 9.0 mg/dL (8.4-10.2); Carbon Dioxide 25 mmol/L (22-29); Chloride 106 mmol/L (96-108); Estimated Glomerular Filt Rate > 60; Potassium 3.7 mmol/L (3.3-5.1); Sodium 140 mmol/L (135-145)
[2025-07-02 17:07] LABS: NT Pro B Type Natriuretic Pept 261.4 pg/mL (<300)
== END 2025-07-02 13:28 | disposition home or self-care (01) ==
LOC: HO.HMGCLDS 13:27
PROVIDERS: PCP Internal Medicine; Visit Provider Internal Medicine
DX: I50.20 Unspecified systolic (congestive) heart failure (principal)
CPT/HCPCS: 36415; 80048; 83880

== ENCOUNTER 2025-07-04 13:24 | Outpatient (AMB) | payer MEDICARE, SELFPAY ==
[2025-07-04 13:47] VITALS: BP 124/68; PULSE 77; RESP 18; O2SAT 94; BMI 32.3
--- NOTE | 2025-07-04 13:47 | A.OFFPC_ITS ---
Vital Signs 07/04/25 13:47 Height 5 ft 7 in Weight 206 lb BMI 32.3 BP 124/68 Blood Pressure Location Lt brachial Position Sitting Respiration 18 Pulse 77 Pulse Source Pulse Oximeter Pulse Oximetry (%) 94 Oxygen Delivery Method Room Air Intake Visit Reasons: 1 month follow up Intake Note: Pt is here today for 1 month follow up visit on blood work. Allergies Sulfa (Sulfonamide Antibiotics) Allergy (Verified 04/29/25 12:21) mild headache nicotine Adverse Reaction (Unknown, Verified 04/29/25 12:21) vomiting strawberry (STRAWBERRY) Adverse Reaction (Unknown, Verified 04/29/25 12:21) BLOODY STOOLS PER PATIENT SEASONAL ALLERGIES Allergy (Mild, Uncoded 02/25/25 13:21) DIFFICULTY BREATHING Tobacco use date assessed: 07/04/25 Dental Screening Dental Screen Date: 09/04/24 HPI 1 month follow up HPI Details Pt presents for HFrEF, COPD, hyperlipid, stable on meds. PFSH Medical History Right lower lobe pulmonary nodule Elevated troponin Sepsis COPD exacerbation Pulmonary nodule Heart failure with reduced ejection fraction MDD (major depressive disorder), recurrent episode Diabetes type 2 Antiphospholipid antibody positive Nicotine dependence, cigarettes, uncomplicated Hyperlipidemia Foot pain, bilateral Depression Anxiety Right shoulder tendinitis Sciatica COPD (chronic obstructive pulmonary disease) Surgical History History of colonoscopy Family History Father Diabetes mellitus Heart problem Mother COPD (chronic obstructive pulmonary disease) Emphysema, unspecified Diabetes mellitus Social History Household Members: None Housing: Other Housing Other:: mobile home Do you presently have visiting nurse or other home services: No Patient Tobacco Use Status: Former Tobacco user Tobacco use type: Cigarette Cigarette Packs Per Day: 1 Cigarettes Per Day: 20.0 Years Smoked: (onset 17yo, 1ppd x 39yrs, now 1/2ppd, 35+pyh) e-Cigarette/Vaping Use: Never Used service: No Current occupational status: unemployed Cognitive needs: No Hearing needs: No Vision needs: Yes Questionnaire Thrive Questionnaire Date Thrive assessed: 09/04/24 I am a: Patient What is your living situation today?: I have a place to live, but I am worried about losing it in the future Within the past 12 months, did the food you bought not last and you didn't have the money to get more?: Sometimes True Within the past 12 months, did you worry whether your food would run out before you got money to buy more?: Sometimes True Do you have trouble paying for medicines?: Yes Do you have trouble getting transportation to medical appointments?: No Do you have trouble paying your heating and electricity bill?: I choose not to answer this question Do you have trouble taking care of your child, family member or friend?: I choose not to answer this question Do you have trouble with day-to-day activities such as bathing, preparing meals, shopping, managing finances, etc.?: No Are you currently unemployed and looking for a job?: I choose not to answer this question Are you interested in more education?: I choose not to answer this question Please select the resources that you would like help with: None Currently or been in a relationship where the following occur: I choose not to answer THRIVE Score: 3 CHAPIN-7 AMB Questionnaire CHAPIN-7 Date CHAPIN - 7 assessed: 04/29/25 Source: Developed by Drs. Star Cartwright, Asiya Linares, Osmar Zhong and colleagues, with an educational nasim from [employer]. Review of Systems Const All systems reviewed & are unremarkable except as noted in HPI and below Eyes Reports no additional complaints ENT Reports no additional complaints Card Reports no additional complaints Resp Reports no additional complaints GI Reports no additional complaints Reports no additional complaints Physical exam (Primary Care) Vital Signs: Last Vital Signs Pulse 77 07/04/25 13:47 Resp 18 07/04/25 13:47 BP 124/68 07/04/25 13:47 Pulse Ox 94 07/04/25 13:47 Oxygen Delivery Method Room Air 07/04/25 13:47 BMI result Body Mass Index 32.3 Tobacco/Smoking Status: Tobacco use Status Tobacco use date assessed 07/04/25 07/04/25 13:58 Patient Tobacco Use Status Former Tobacco user 07/04/25 13:47 Tobacco use type Cigarette 07/04/25 13:47 e-Cigarette/Vaping Use Never Used 07/04/25 13:47 Thrive Assessment: Date of Thrive Assessment Date Thrive assessed 09/04/24 07/04/25 13:47 Currently or been in a relationship where the following occur: I choose not to answer Const General: no acute distress HENMT Head: Yes normal to inspection Face and sinus: Yes normal facial exam Eyes General: appearance normal, both eyes and all related structures Resp Effort & Inspection: normal respiratory effort Auscultation: diminished lung sounds Cardio Rhythm: regular rhythm Heart sounds: S1 normal heart sound present and S2 normal heart sound present GI Inspection: Yes normal to inspection Palpation (GI): Soft to palpation Percussion: Yes normal to percussion Auscultation: normal bowel sounds Extrem Other: 1+ pitting edema bilaterally Coding Level of Care Code Complex visit Add On G2211 Diagnoses COPD (chronic obstructive pulmonary disease) J44.9 Hyperlipidemia E78.5 DM type 2 (diabetes mellitus, type 2) E11.9 Heart failure with reduced ejection fraction I50.20 Assessment & Plan Assessment & Plan (1) COPD (chronic obstructive pulmonary disease): Code(s): J44.9 - Chronic obstructive pulmonary disease, unspecified Category: Medical Plan: Continue inhalers, tobacco quitting discussed with the patient patient will try Chantix (2) Hyperlipidemia: Code(s): E78.5 - Hyperlipidemia, unspecified Category: Medical Plan: Continue statin (3) DM type 2 (diabetes mellitus, type 2): Comment: Started on Jardiance 02/12/2025 Code(s): E11.9 - Type 2 diabetes mellitus without complications Category: Medical Plan: A1c is 6.3, continue Jardiance ADA diet regular exercise (4) Heart failure with reduced ejection fraction: Comment: Echo [facility] [place] 02/2025 EJECTION FRACTION MILDLY REDUCED 45-50% NO SEGMENTAL WALL MOTION ABNORMALITIES, obtain during hospitalization for COPD exacerbation, repeat ECHO EJECTION FRACTION 35-40% LEFT BUNDLE BRANCH BLOCK MILD DIASTOLIC DYSFUNCTION Code(s): I50.20 - Unspecified systolic (congestive) heart failure Category: Medical Plan: Continue valsartan, Jardiance furosemide add spironolactone 25 mg daily follow- up in 1 month with a fasting labs before Orders: Orders Hemoglobin A1c 1 Month E11.9 - Type 2 diabetes mellitus without complications, E78.5 - Hyperlipidemia, unspecified, I50.20 - Unspecified systolic (congestive) heart failure, J44.9 - Chronic obstructive pulmonary disease, unspecified Lipid Panel 1 Month E11.9 - Type 2 diabetes mellitus without complications, E78.5 - Hyperlipidemia, unspecified, I50.20 - Unspecified systolic (congestive) heart failure, J44.9 - Chronic obstructive pulmonary disease, unspecified Comprehensive [place]. Panel Fast 1 Month E11.9 - Type 2 diabetes mellitus without complications, E78.5 - Hyperlipidemia, unspecified, I50.20 - Unspecified systolic (congestive) heart failure, J44.9 - Chronic obstructive pulmonary disease, unspecified Complete Blood Count Auto Diff 1 Month E11.9 - Type 2 diabetes mellitus without complications, E78.5 - Hyperlipidemia, unspecified, I50.20 - Unspecified systolic (congestive) heart failure, J44.9 - Chronic obstructive pulmonary disease, unspecified Microalbumin, Random (w Creat) 1 Month E11.9 - Type 2 diabetes mellitus without complications, E78.5 - Hyperlipidemia, unspecified, I50.20 - Unspecified systolic (congestive) heart failure, J44.9 - Chronic obstructive pulmonary disease, unspecified Medications: New varenicline tartrate (Chantix Starting Month Box) PO PER PKG DIR 53 ea 0RF varenicline tartrate (Chantix Continuing Month Box) 1 mg PO BID 56 tabs 1RF spironolactone 25 mg PO DAILY 90 tabs 1RF
== END 2025-07-04 15:33 | disposition home or self-care (01) ==
LOC: HO.HMCC 13:25
PROVIDERS: PCP Internal Medicine; Visit Provider Internal Medicine
DX: J44.9 Chronic obstructive pulmonary disease, unspecified (principal); E78.5 Hyperlipidemia, unspecified; E11.9 Type 2 diabetes mellitus without complications; I50.20 Unspecified systolic (congestive) heart failure

== ENCOUNTER → 2025-07-04 13:24 | Outpatient (BNVA) | payer MEDICARE, SELFPAY | PROVIDERS: PCP Internal Medicine; Visit Provider Internal Medicine | DX: J44.9 Chronic obstructive pulmonary disease, unspecified (principal); E78.5 Hyperlipidemia, unspecified; E11.9 Type 2 diabetes mellitus without complications; I50.20 Unspecified systolic (congestive) heart failure | CPT/HCPCS: 99212 ==